=== PATIENT | male | born 1930 | race Caucasian/White ===

== ENCOUNTER 2018-01-22 12:27 | Inpatient (IN) | payer OTHER ==
--- NOTE | 2018-01-22 12:47 | PDOC ---
History of Present Illness - General Chief Complaint: Pain Stated Complaint: abd pain History Source: Patient - History of Present Illness Initial Comments: The patient is an 87M w/ a history of a-fib, COPD, and colon cancer (s/p colectomy and ostomy creation) who presents for evaluation for 1d of sharp, non- radiating, constant, RUQ abdominal pain. The pain is worse with coughing and palpation and better with recumbency. The patient also reports 4d of productive cough w/ yellow sputum. The patient denies having had pain like this before. He reports recently visiting his PCP and being told that he has hepatomegaly but has yet to be further evaluated for it. He denies associated fevers/chills, N/V, or change in his ostomy output. He denies blood in his stool or urine. His only reported history of intra-abdominal surgery is the colon resection, ostomy creation, and IHR. The patient states that he has a chronic cough w/ shortness of breath 2/2 his COPD. However, the sputum color has recently change to a yellow-kalpana color. He denies a worsening of his shortness of breath. He is on 2L NC at home at all times. 01/22/18 13:07 Past History - Past Medical History Allergies/Adverse Reactions: Allergies Allergy/AdvReac Type Severity Reaction Status Date / Time No Known Allergies Allergy Verified 01/22/18 12:47 Home Medications: Ambulatory Orders Albuterol Sulfate [Proair Hfa] 8.5 gm IH PRN 01/22/18 Allopurinol 300 mg PO DAILY 01/22/18 Clopidogrel Bisulfate [Plavix] 75 mg PO DAILY 01/22/18 Eszopiclone [Lunesta] 2 mg PO HS 01/22/18 Furosemide [Lasix] 40 mg PO DAILY 01/22/18 Gabapentin 300 mg PO BID 01/22/18 Metoprolol Tartrate [Lopressor -] 25 mg PO BID 01/22/18 COPD: Yes HTN: Yes Hypercholesterolemia: Yes - Surgical History Abdominal Surgery: Yes (colostomy.) - Immunization History Td Vaccination: Yes TDAP Vaccination: Yes Immunization Up to Date: Yes - Suicide/Smoking/Psychosocial Hx Smoking Status: No Smoking History: Former smoker Have you smoked in the past 12 months: No Number of Cigarettes Smoked Daily: 0 Hx Alcohol Use: No Drug/Substance Use Hx: No Substance Use Type: None Hx Substance Use Treatment: No Review of Systems - Review of Systems Able to Perform ROS?: Yes Comments:: GENERAL/CONSTITUTIONAL: No fever or chills. No weakness HEAD, EYES, EARS, NOSE AND THROAT: No change in vision. No ear pain or discharge. No sore throat CARDIOVASCULAR: No chest pain; +chronic BLE edema RESPIRATORY: +productive cough, baseline dyspnea GASTROINTESTINAL: No nausea, vomiting, no change in ostomy output GENITOURINARY: No dysuria, frequency, or change in urination MUSCULOSKELETAL: No joint or muscle swelling or pain. SKIN: No rash NEUROLOGIC: No headache, vertigo, loss of consciousness, or change in strength/ sensation ENDOCRINE: No increased thirst. +weight loss HEMATOLOGIC/LYMPHATIC: No anemia, easy bleeding, or history of blood clots; + plavix ALLERGIC/IMMUNOLOGIC: No hives or skin allergy 01/22/18 12:45 Is the patient limited Vietnamese proficient: No *Physical Exam - Physical Exam Comments: GENERAL: Awake, alert, and fully oriented, in no acute distress HEAD: No signs of trauma, normocephalic, atraumatic EYES: PERRL, EOMI, sclera anicteric, conjunctiva clear ENT: Hearing grossly normal, nares patent, oropharynx clear without exudates. Moist mucosa NECK: Normal ROM, supple LUNGS: B/l diffuse crackles; speaks in full sentences; no use of accessory muscles; saturating at 100% on 2L NC HEART: Regular rate, irregularly irregular rhythm, no murmurs appreciated, peripheral pulses normal and equal bilaterally ABDOMEN: Soft, nontender, normoactive bowel sounds. No guarding, no rebound EXTREMITIES : 3+ BLE edema to midshin; Normal range of motion. No clubbing or cyanosis NEUROLOGICAL: Cranial nerves II through XII grossly intact. Normal speech, no focal sensorimotor deficits SKIN: Warm, Dry; no diaphoresis 01/22/18 12:45 ED Treatment Course - LABORATORY CBC & Chemistry Diagram: 01/22/18 13:30 01/22/18 13:30 Medical Decision Making - Medical Decision Making The patient is an 87M who presents for evaluation for abdominal pain. Ddx: ED Course Sepsis w/u Trop I 1L NS ECG CXR 01/22/18 12:45 ECG significant for rate controlled afib. Patient took morning dose of Plavix POCUS significant for hetero-echoic liver suspicious for malignancy/mets; R hydronephrosis; evidence of b/l pleural effusion and RLL PNA; no evidence of gallbladder wall thickening or cholelithiasis Will obtain CT chest/abd/pelvis to further evaluate extent of malignancy v mets , pulm disease and intra-abdominal dz Will give Vanc 1g IV and Zosyn 3.375g IV once for broad spectrum coverage 01/22/18 14:45 Hgb 8.5, macrocytic anemia No leukocytosis Cr 1.2; GFR 50s, no reported history of kidney disease 01/22/18 14:52 Plan for admission for PNA/sepsis and evaluation of liver lesions seen on CT. CT scan results discussed with patient and family including findings that are suggestive of malignancy/mets. Discussed w/ family the need for further evaluation/testing. All questions answered to the best of my ability. Patient and family verbalized understanding. Patient with hx of COPD and increased shortness of breath. Reports requiring nebs QID. -Will give duoneb x1 Dispo: Admit 01/22/18 20:15 *DC/Admit/Observation/Transfer Diagnosis at time of Disposition: Liver lesion Pneumonia Qualifiers: Pneumonia type: due to unspecified organism Laterality: unspecified laterality Lung location: unspecified part of lung Qualified Code(s): J18.9 - Pneumonia, unspecified organism Sepsis Qualifiers: Sepsis type: sepsis due to unspecified organism Qualified Code(s): A41.9 - Sepsis, unspecified organism - Discharge Dispostion Condition at time of disposition: Guarded Decision to Admit order: Yes - Referrals - Patient Instructions - Post Discharge Activity
[2018-01-22] MEDS ORDERED: SODIUM CHLORIDE 0.9% 500 ML INFUS.BAG IV ONE (13:08)
[2018-01-22] MEDS ORDERED: ACETAMINOPHEN 325 MG TABLET (FP) PO ONE (13:08)
--- NOTE | 2018-01-22 13:13 | PDOC ---
Attending Attestation - Resident Resident Name: worsening - ED Attending Attestation I have performed the following: I have examined & evaluated the patient, The case was reviewed & discussed with the resident, I agree w/resident's findings & plan, Exceptions are as noted - HPI HPI: 01/22/18 13:12 87 yo male with h/o copd, htn here with c/o ruq pain. - Physicial Exam PE: 01/22/18 14:54 awake alert lungs with crackles at bilat bases. decreased breath sounds at bases. heart irreg tachycardia no mrg. abd distended. ostomy, intact. ruq palp large 3 x 5 in palp tender mass. ext wwp no edema. nuero alert oriented x 3. - Medical Decision Making 01/22/18 14:46 Chief 87-year-old male history of hypertension, hyperlipidemia, COPD, colon CA status post resection colectomy and colostomy here today with right-sided abdominal pain and cough. Patient was seen by PCP who palpated a mass. Denies fevers chills no nausea no vomiting no leg swelling no shortness of breath. On exam patient has a wet sounding cough which is nonproductive crackles at bilateral bases right side upper abdominal exam reveals a palpable mass which is tender to palpation. The left ostomy appears to be intact it is nontender extremities are warm and well-perfused Differential diagnosis includes metastatic lung CA, abdominal wall hernia, pneumonia, other renal or adrenal tumor, cholecystitis, cholangitis, cholelithiasis. Plan CT abdomen and pelvis, chest x-ray, labs including septic workup, EKG IV hydration fever control and pain control will give broad-spectrum antibiotics for presumed pneumonia focus ED ultrasound of the right upper quadrant Focus ED right upper quadrant ultrasound, indication pain and palpable mass The right upper quadrant was scanned into planes using the curvilinear probe. The gallbladder was noted to be without stones or wall thickening. Of note the liver had multiple areas of hyperechoic heterogeneous areas and showed enlargement. The right kidney showed that it was anatomically displaced medially and showed moderate hydronephrosis unable to identify the patient's CBD Bilateral kidneys were scanned indication hydronephrosis Right kidney was scanned into planes noted moderate hydronephrosis the left kidney measures 8.9 cm in length no hydronephrosis noted the bladder was nondistended and nonvisible the patient had recently urinated Impression: Right sided moderate hydronephrosis empty bladder liver heterogeneity and hyperechoic masses bladder gallbladder nondistended no stones unable to visualize CBD recommend CT follow-up 01/22/18 14:55 bilat lung ultrasound performed, with cardiac indication cough bilat lung bases with focal b lines, small pleural effusion and air bronchograms at bases, right more than left. anterior lung cardona a line predominant bilaterally. TTE performed, parasteral long veiw showed no rv enlargement, no pericardial effusion, good contractility. subxiphoid unvisualized. impressions: bilat air bronchograms and small effusions pneumonia vs. atelectasis, no pericardial effusion good contractility. <Kimberly Fairbanks - Last Filed: 01/22/18 14:55> - HPI HPI: 01/22/18 14:58 The patient is an 87-year-old male with past medical history significant for Afib, HTN, SBO, B/l renal cyst, R. base nodule on his lung, HLD, COPD on 2L O2 at home, hx of colon CA (13 years ago) s/p colostomy and ostomy by Dr. Lane, one chemo session, hx of CHF in the past presents to the emergency department with abdominal pain since 4:00 am today and a cough. The patient reports the pain is located to the RUQ, non-radiating, describes the quality as sharp. The patient also endorses a cough for 1 day. Denies nausea, vomiting, dysuria, chest pain, worsening shortness of breath, fever or chills. The patient reports following up with PCP 2 weeks prior, who informed the patient that his liver was palpable, no bulging mentioned. Denies any known urinary problems or concerns. The family reports the patient uses nebulizer x4 daily, inhaler and O2. Allergies: NKDA, no known allergies to abx. Social history: Former smoker, no past or present use of alcohol or recreational drug use. Surgical history: Colostomy and appendectomy PCP: Edison Aquino. Urologist: Dr. Membreno - Medical Decision Making 01/22/18 14:59 Documentation prepared by Donna Urias, acting as esthetician and manager medical spa for Kimberly Fairbanks MD. <Donna Urias - Last Filed: 01/22/18 14:59>
[2018-01-22] MEDS ORDERED: ACETAMINOPHEN 325 MG TABLET (FP) ONE (13:34)
[2018-01-22 13:37] LABS: VENOUS PC02 54.4 mmHg (38-52); VENOUS PH 7.45 (7.32-7.42); VENOUS PO2 31.5 mmHg (28-48)
[2018-01-22 13:47] LABS: BASO % 0.5 % (0-2.0); HEMATOCRIT 27.6 % (35.4-49); HEMOGLOBIN 8.5 GM/dL (11.7-16.9); LYMPH % 4.6 % (8-40); MCH 32.4 pg (25.7-33.7); MCHC 30.9 g/dl (32.0-35.9); MEAN CELL VOLUME 104.7 fl (80-96); MEAN PLT VOLUME 9.3 fl (7.5-11.1); MONO % 9.4 % (3.8-10.2); NEUT % 85.5 % (42.8-82.8); PLATELET COUNT 170 K/MM3 (134-434); RBC 2.63 M/mm3 (4.00-5.60); RDW 15.9 % (11.9-15.9); WHITE BLOOD COUNT 10.1 K/mm3 (4.0-10.0)
[2018-01-22 13:52] LABS: INR 1.22 (0.83-1.09); PROTHROMBIN TIME (PATIENT) 14.4 SEC (9.7-13.0)
[2018-01-22 13:54] LABS: ACTIVATED PTT 31.7 SECONDS (25.2-36.5)
[2018-01-22 14:14] LABS: ALBUMIN 2.4 g/dl (3.4-5.0); ALK PHOS 152 U/L (45-117); ANION GAP 7 MMOL/L (8-16); BILIRUBIN,TOTAL 0.8 mg/dL (0.2-1); BLOOD UREA NITROGEN 36 mg/dL (7-18); CALCIUM 9.2 mg/dL (8.5-10.1); CHLORIDE 97 mmol/L (98-107); CO2 37 mmol/L (21-32); CREATININE 1.2 mg/dL (0.55-1.3); GLUCOSE,RANDOM 94 mg/dL (74-106); POTASSIUM 3.4 mmol/L (3.5-5.1); SGOT/AST 49 U/L (15-37); SGPT/ALT 18 U/L (13-61); SODIUM 141 mmol/L (136-145); TOT PROT 6.2 g/dl (6.4-8.2)
[2018-01-22] MEDS ORDERED: VANCOMYCIN 1,000 MG in DEXTROSE 5%-WATER - 250 ML IVPB ONE (14:44)
[2018-01-22] MEDS ORDERED: PIPERACILLIN/TAZOB 3.375 GM 3.375 GM in DEXTROSE 5%-WATER - 50 ML IVPB ONE (14:44)
[2018-01-22] MEDS ORDERED: VANCOMYCIN 1 GRAM (PRE-DOCKED) 1,000 MG/250 ML BAG IVPB ONE (14:48)
[2018-01-22] MEDS ORDERED: PIPERACILLIN/TAZOB 3.375 GM 3.375 GM/50 ML BAG IVPB ONE (14:48)
[2018-01-22] MEDS ORDERED: ALBUTEROL SO4 2.5/IPRATROPIUM 0.5 INH SOL 3 ML VIAL.NEB. NEB ONE (19:21)
--- NOTE | 2018-01-22 20:17 | HP ---
Admitting History and Physical - Admission Chief Complaint: shortness of breath, right sided abd pain History of Present Illness: 87 yo male, recent increased shortness of breath, on lasix at home, presents with increased shortness of breath and right sided abd pain. Has been yusing albuterol nebulizer at home. Also has history of colon cancer, has left sided colostomy following resection. Notes years ago he had 1 round of chemo, but was not felt to require further treatment. Notes has been urinating a lot lately as well, but has been taking lasix. Notes some phlegm, which he has trouble expelling. No fevers noted at home. History Source: Patient, Medical Record Limitations to Obtaining History: No Limitations - Past Medical History Cardiovascular: Yes: CAD, CHF, HTN, Hyperlipdemia, Other (h/o SVT) Gastrointestinal: Yes: Diverticulosis Renal/: Yes: BPH, Other (epididymitis) Heme/Onc: Yes: Anemia, B12 Deficiency, Cancer (colon) Rheumatology: Yes: Gout Dermatology: Yes: Squamous Cell (cancer of scalp) - Past Surgical History Past Surgical History: Yes: Colostomy, Joint Replacement (rigth hip), Prostatectomy - Smoking History Smoking history: Former smoker Have you smoked in the past 12 months: No Aproximately how many cigarettes per day: 0 - Alcohol/Substance Use Hx Alcohol Use: No - Social History 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 Other Social History: , lives with girl friend Home Medications - Allergies Allergies/Adverse Reactions: Allergies Allergy/AdvReac Type Severity Reaction Status Date / Time No Known Allergies Allergy Verified 01/22/18 12:47 - Home Medications Home Medications: Ambulatory Orders Albuterol Sulfate [Proair Hfa] 8.5 gm IH PRN 01/22/18 Allopurinol 300 mg PO DAILY 01/22/18 Clopidogrel Bisulfate [Plavix] 75 mg PO DAILY 01/22/18 Eszopiclone [Lunesta] 2 mg PO HS 01/22/18 Furosemide [Lasix] 40 mg PO DAILY 01/22/18 Gabapentin 300 mg PO BID 01/22/18 Metoprolol Tartrate [Lopressor -] 25 mg PO BID 01/22/18 Family Disease History - Family Disease History Other Family History: fmaily history of DM, ASHD, HTN Review of Systems - Review of Systems Constitutional: denies: Chills, Fever, Loss of Appetite Eyes: reports: No Symptoms HENT: denies: Difficult Swallowing, Throat Pain Neck: denies: Stiffness, Tenderness Cardiovascular: denies: Chest Pain, Palpitations Respiratory: reports: Cough, SOB on Exertion Gastrointestinal: reports: Abdominal Pain. denies: Diarrhea Genitourinary: reports: Frequency (increased) Musculoskeletal: denies: Back Pain Physical Examination Vital Signs: Vital Signs Temperature 98.8 F 01/22/18 19:14 Pulse Rate 90 01/22/18 19:14 Respiratory Rate 18 01/22/18 19:14 Blood Pressure 104/59 L 01/22/18 19:14 O2 Sat by Pulse Oximetry (%) 96 01/22/18 19:14 Constitutional: Yes: No Distress Eyes: Yes: Conjunctiva Clear, EOM Intact, PERRL HENT: Yes: Atraumatic, Normocephalic Neck: Yes: Supple, Trachea Midline Cardiovascular: Yes: Regular Rate and Rhythm, S1, S2. No: Murmur Respiratory: Yes: Regular, Rhonchi (right base) Gastrointestinal: Yes: Normal Bowel Sounds, Distention, Hepatomegaly, Tenderness (rigth abdomen/ flank), Other (colostomy left abdomen) Edema: Yes Edema: LLE: 1+, RLE: 1+ Neurological: Yes: Alert, Oriented Labs: CBC, BMP 01/22/18 13:30 01/22/18 13:30 Imaging - Results Cat Scan: Report Reviewed (CT chest -left basilar infiltrate, mucoid plug CT abd /pelvis -multiple liver hypodensities, spleen lesion, mild right hydronephrosis , colostomy with parastmoal herniation (non-obstructive pattern)) Problem List - Problems (1) Pneumonia Assessment/Plan: -start zosyn (given dose vanco in ED), ID consulted Code(s): J18.9 - PNEUMONIA, UNSPECIFIED ORGANISM (2) COPD (chronic obstructive pulmonary disease) Assessment/Plan: -cont albuterol treatments, start Spiriva, pulm consult Code(s): J44.9 - CHRONIC OBSTRUCTIVE PULMONARY DISEASE, UNSPECIFIED (3) Colon cancer Assessment/Plan: -history of colon cancer s/p colectomy/ colostomy placement Code(s): C18.9 - MALIGNANT NEOPLASM OF COLON, UNSPECIFIED (4) Liver lesion Assessment/Plan: -appear to be metastatic disease -Oncology consult, GI consult -hold plavix, as may require biopsy Code(s): K76.9 - LIVER DISEASE, UNSPECIFIED (5) Atrial fibrillation Assessment/Plan: -s/p ablation procedure, currently rate controlled Code(s): I48.91 - UNSPECIFIED ATRIAL FIBRILLATION (6) CHF (congestive heart failure) Assessment/Plan: -on lasix -cont IV lasix here, cardio eval Code(s): I50.9 - HEART FAILURE, UNSPECIFIED (7) Anemia Assessment/Plan: -follow H/H Code(s): D64.9 - ANEMIA, UNSPECIFIED
[2018-01-22] MEDS ORDERED: ESZOPICLONE 2 MG PO SCH (22:00)
[2018-01-22 22:26] LABS: ALBUMIN 2.3 g/dl (3.4-5.0); ALK PHOS 148 U/L (45-117); ANION GAP -17 MMOL/L (8-16); BILIRUBIN,TOTAL 0.8 mg/dL (0.2-1); BLOOD UREA NITROGEN 34 mg/dL (7-18); CALCIUM 9.9 mg/dL (8.5-10.1); CHLORIDE 104 mmol/L (98-107); CO2 37 mmol/L (21-32); CREATININE 1.3 mg/dL (0.55-1.3); GLUCOSE,RANDOM 100 mg/dL (74-106); LIPASE 948 U/L (73-393); POTASSIUM 3.2 mmol/L (3.5-5.1); SGOT/AST 37 U/L (15-37); SGPT/ALT 17 U/L (13-61); SODIUM 125 mmol/L (136-145); TOT PROT 5.7 g/dl (6.4-8.2)
[2018-01-22] MEDS: ALBUTEROL SO4 0.083% IH SOL 2.5 MG/3 ML VIAL.NEB. NEB SCH (22:30)
[2018-01-22] MEDS: ZOLPIDEM TARTRATE 5 MG TABLET PO PRN (22:54)
[2018-01-22] MEDS: HEPARIN NA (PORCINE) 5,000 UNITS/ML 1ML VIAL SQ SCH (22:54)
[2018-01-22] MEDS: METOPROLOL TARTRATE 25 MG TABLET (FP) PO SCH (22:54)
[2018-01-22] MEDS: GABAPENTIN 300 MG CAPSULE (FP) PO SCH (22:54)
[2018-01-23] MEDS: ALBUTEROL SO4 0.083% IH SOL 2.5 MG/3 ML VIAL.NEB. NEB SCH ×6 (01:42→21:00)
[2018-01-23] MEDS ORDERED: PIPERACILLIN/TAZOB 3.375 GM 3.375 GM in DEXTROSE 5%-WATER - 50 ML IVPB ONE (02:00)
[2018-01-23] MEDS ORDERED: PIPERACILLIN/TAZOBACTAM 3.375 GM VIAL IVPB ONE (02:34)
[2018-01-23] MEDS ORDERED: DEXTROSE 5%-WATER - 50 ML IVPB ONE ×2 (02:34→10:56)
[2018-01-23 07:35] LABS: BASO % 0.5 % (0-2.0); EOS % 0.2 % (0-4.5); HEMATOCRIT 25.4 % (35.4-49); HEMOGLOBIN 7.7 GM/dL (11.7-16.9); LYMPH % 8.4 % (8-40); MCH 31.6 pg (25.7-33.7); MCHC 30.2 g/dl (32.0-35.9); MEAN CELL VOLUME 104.4 fl (80-96); MEAN PLT VOLUME 8.6 fl (7.5-11.1); MONO % 9.3 % (3.8-10.2); NEUT % 81.6 % (42.8-82.8); PLATELET COUNT 150 K/MM3 (134-434); RBC 2.43 M/mm3 (4.00-5.60); RDW 15.7 % (11.9-15.9); WHITE BLOOD COUNT 7.5 K/mm3 (4.0-10.0)
[2018-01-23 08:02] LABS: ALBUMIN 2.1 g/dl (3.4-5.0); ALK PHOS 141 U/L (45-117); ANION GAP 3 MMOL/L (8-16); BILIRUBIN,TOTAL 0.7 mg/dL (0.2-1); BLOOD UREA NITROGEN 31 mg/dL (7-18); CALCIUM 9.6 mg/dL (8.5-10.1); CHLORIDE 100 mmol/L (98-107); CO2 36 mmol/L (21-32); GLUCOSE,RANDOM 82 mg/dL (74-106); POTASSIUM 3.5 mmol/L (3.5-5.1); SGOT/AST 33 U/L (15-37); SGPT/ALT 17 U/L (13-61); SODIUM 139 mmol/L (136-145); TOT PROT 5.5 g/dl (6.4-8.2)
[2018-01-23 09:12] LABS: URINE APPEARANCE SLCLOUDY; URINE BILIRUBIN NEGATIVE (<2.0 mg/dL); URINE COLOR YELLOW; URINE GLUCOSE (UA) NEGATIVE (NEGATIVE); URINE KETONE NEGATIVE (NEGATIVE); URINE LEUK ESTERASE 3+ (NEGATIVE); URINE NITRITE NEGATIVE (NEGATIVE); URINE PROTEIN NEGATIVE (NEGATIVE); URINE UROBILINOGEN NEGATIVE mg/dL (0.2-1.0)
[2018-01-23 09:13] LABS: EPI CELLS RARE /HPF (FEW); URINE MUCUS RARE
[2018-01-23] MEDS: FUROSEMIDE 40 MG/4 ML INJECTABLE VIAL IVPUSH SCH (09:18)
[2018-01-23] MEDS: HEPARIN NA (PORCINE) 5,000 UNITS/ML 1ML VIAL SQ SCH ×2 (09:18→21:30)
[2018-01-23] MEDS: GABAPENTIN 300 MG CAPSULE (FP) PO SCH ×2 (09:18→21:30)
[2018-01-23] MEDS: ALLOPURINOL 300 MG TABLET (FP) PO SCH (09:18)
[2018-01-23] MEDS: METOPROLOL TARTRATE 25 MG TABLET (FP) PO SCH ×2 (09:18→21:30)
[2018-01-23] MEDS ORDERED: PIPERACILLIN/TAZOB 3.375 GM 3.375 GM in DEXTROSE 5%-WATER - 50 ML IVPB SCH (10:00)
--- NOTE | 2018-01-23 10:29 | CON.ID ---
Consult Consult Specialty:: infectious disease Referred by:: dr hussein Reason for Consultation:: pneumonia - History of Present Illness Chief Complaint: cough for one week History of Present Illness: 87 year old man with prior history of colon cancer s/p colostomy, has had anorexia for about one month now, one week of cough, nonproductive. no fevers was seen by his PMD and hepatomegaly noted, given cough he was advised ED evaluation lives at home with significant other uses cant to ambulate no nausea or vomiting no diarrhea or constipation is on lasix, no dysuria, +urinary frequency +weight loss no travel 2 pet birds no recent hospitalizations no recent antibiotics chronic leg edema left greater then right - History Source History Provided By: Patient, Medical Record - Past Medical History Cardio/Vascular: Yes: CAD, CHF, HTN, Hyperlipdemia, Other (h/o SVT) Gastrointestinal: Yes: Diverticulosis Renal/: Yes: BPH, Other (epididymitis) Rheumatology: Yes: Gout Dermatology: Yes: Squamous Cell (cancer of scalp) - Past Surgical History Past Surgical History: Yes: Colostomy, Joint Replacement (rigth hip), Prostatectomy - Alcohol/Substance Use Hx Alcohol Use: No - Smoking History Smoking history: Former smoker Have you smoked in the past 12 months: No Aproximately how many cigarettes per day: 0 - Social History Usual Living Arrangement: With Significant Other ADL: Independent 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[employer] Place of : [facility] History of Recent Travel: No Home Medications - Allergies Allergies/Adverse Reactions: Allergies Allergy/AdvReac Type Severity Reaction Status Date / Time No Known Allergies Allergy Verified 01/22/18 12:47 - Home Medications Home Medications: Ambulatory Orders Albuterol Sulfate [Proair Hfa] 8.5 gm IH PRN 01/22/18 Allopurinol 300 mg PO DAILY 01/22/18 Clopidogrel Bisulfate [Plavix] 75 mg PO DAILY 01/22/18 Eszopiclone [Lunesta] 2 mg PO HS 01/22/18 Furosemide [Lasix] 40 mg PO DAILY 01/22/18 Gabapentin 300 mg PO BID 01/22/18 Metoprolol Tartrate [Lopressor -] 25 mg PO BID 01/22/18 Family Disease History - Family Disease History Other Family History: fmaily history of DM, ASHD, HTN Review of Systems - Review of Systems Constitutional: reports: Unintentional Wgt. Loss. denies: Chills, Fever Eyes: reports: No Symptoms HENT: reports: No Symptoms Neck: reports: No Symptoms Cardiovascular: denies: Chest Pain Respiratory: reports: Cough Gastrointestinal: reports: No Symptoms. denies: Diarrhea, Nausea, Vomiting Genitourinary: reports: No Symptoms Musculoskeletal: reports: No Symptoms Physical Exam Vital Signs: Vital Signs Temperature 98.7 F 01/23/18 07:56 Pulse Rate 96 H 01/23/18 07:56 Respiratory Rate 20 01/23/18 08:02 Blood Pressure 107/62 01/23/18 07:56 O2 Sat by Pulse Oximetry (%) 100 01/23/18 08:02 Constitutional: Yes: Well Nourished, No Distress Eyes: Yes: Conjunctiva Clear HENT: Yes: Other (dentures upper and lower). No: Pharyngeal Erythema, Thrush Neck: Yes: WNL, Supple Cardiovascular: Yes: Regular Rate and Rhythm Respiratory: Yes: CTA Bilaterally, Diminished (both bases) Gastrointestinal: Yes: Normal Bowel Sounds, Soft, Tenderness (Ruq), Other ( colostomy LLQ) ...Rectal Exam: Yes: Deferred Edema: Yes Edema: LLE: 1+, RLE: 1+ Psychiatric: Yes: Alert, Oriented Labs: CBC, BMP 01/23/18 05:40 01/23/18 05:40 Imaging - Results Chest X-ray: Report Reviewed Cat Scan: Report Reviewed, Image Reviewed (left posterior basilar infiltrate, right posterior basilar opacity, multiple liver lesions, multiple non obstructing renal calculi with mild right hydronephrosis, +colostomy with peristomal hernia) Problem List - Problems (1) Pneumonia Code(s): J18.9 - PNEUMONIA, UNSPECIFIED ORGANISM (2) Liver lesion Code(s): K76.9 - LIVER DISEASE, UNSPECIFIED (3) Colon cancer Code(s): C18.9 - MALIGNANT NEOPLASM OF COLON, UNSPECIFIED (4) Anemia Code(s): D64.9 - ANEMIA, UNSPECIFIED Assessment/Plan f/u cultures add legionella urinary antigen can treat with rocephin, no history of recent antibiotics or hospitalizations to suggest resistant organisms probable liver mets- history of colon cancer oncology to see anemia-to follow
[2018-01-23 10:44] LABS: URINE APPEARANCE CLEAR; URINE BILIRUBIN NEGATIVE (<2.0 mg/dL); URINE COLOR YELLOW; URINE GLUCOSE (UA) NEGATIVE (NEGATIVE); URINE KETONE NEGATIVE (NEGATIVE); URINE LEUK ESTERASE 1+ (NEGATIVE); URINE NITRITE NEGATIVE (NEGATIVE); URINE PROTEIN NEGATIVE (NEGATIVE); URINE UROBILINOGEN NEGATIVE mg/dL (0.2-1.0)
[2018-01-23] MEDS ORDERED: CEFTRIAXONE 1 GM in DEXTROSE 5%-WATER - 100 ML IVPB SCH (10:45)
[2018-01-23 10:46] LABS: EPI CELLS RARE /HPF (FEW); URINE BACTERIA RARE /hpf (NONE SEEN); URINE HYALINE CAST 1 /lpf
[2018-01-23] MEDS ORDERED: cefTRIAXone SODIUM 1 GM VIAL ONE (10:56)
--- NOTE | 2018-01-23 12:28 | PN ---
Progress Note, Physician History of Present Illness: Patient notes a little less pain today in abdomen. Still coughing, but seems improved today. - Current Medication List Current Medications: Active Medications Acetaminophen (Tylenol -) 650 mg PO Q4H PRN PRN Reason: PAIN OR FEVER Albuterol Sulfate (Ventolin 0.083% Nebulizer Soln -) 1 amp NEB Q4HPO [facility] Last Admin: 01/23/18 05:45 Dose: 1 amp Allopurinol (Zyloprim -) 300 mg PO DAILY [facility] Last Admin: 01/23/18 09:18 Dose: 300 mg Furosemide (Lasix Injection -) 40 mg IVPUSH DAILY [facility] Last Admin: 01/23/18 09:18 Dose: 40 mg Gabapentin (Neurontin -) 300 mg PO BID [facility] Last Admin: 01/23/18 09:18 Dose: 300 mg Heparin Sodium (Porcine) (Heparin -) 5,000 unit SQ BID [facility] Last Admin: 01/23/18 09:18 Dose: 5,000 unit Ceftriaxone Sodium 1 gm/ (Dextrose) 50 mls @ 200 mls/hr IVPB DAILY [facility]; Protocol Metoprolol Tartrate (Lopressor -) 25 mg PO BID [facility] Last Admin: 01/23/18 09:18 Dose: 25 mg Tiotropium [place] (Spiriva Respimat) 2 puff IH DAILY [facility] Zolpidem Tartrate (Ambien -) 5 mg PO HS PRN PRN Reason: INSOMNIA Last Admin: 01/22/18 22:54 Dose: 5 mg - Objective Vital Signs: Vital Signs Temperature 98.7 F 01/23/18 07:56 Pulse Rate 96 H 01/23/18 07:56 Respiratory Rate 20 01/23/18 08:02 Blood Pressure 107/62 01/23/18 07:56 O2 Sat by Pulse Oximetry (%) 100 01/23/18 08:02 Constitutional: Yes: No Distress, Calm Cardiovascular: Yes: Regular Rate and Rhythm, S1, S2. No: Murmur Respiratory: Yes: Regular, Rhonchi (base on right) Gastrointestinal: Yes: Normal Bowel Sounds, Soft, Distention, Tenderness (right side), Other (colostomy left abdomen) Edema: Yes Edema: LLE: 1+, RLE: 1+ Neurological: Yes: Alert, Oriented Labs: CBC, BMP 01/23/18 05:40 01/23/18 05:40 INR, PTT INR 1.22 (0.83-1.09) H 01/22/18 13:30 Problem List - Problems (1) Pneumonia Code(s): J18.9 - PNEUMONIA, UNSPECIFIED ORGANISM (2) COPD (chronic obstructive pulmonary disease) Code(s): J44.9 - CHRONIC OBSTRUCTIVE PULMONARY DISEASE, UNSPECIFIED (3) Colon cancer Code(s): C18.9 - MALIGNANT NEOPLASM OF COLON, UNSPECIFIED (4) Liver lesion Code(s): K76.9 - LIVER DISEASE, UNSPECIFIED (5) Atrial fibrillation Code(s): I48.91 - UNSPECIFIED ATRIAL FIBRILLATION (6) CHF (congestive heart failure) Code(s): I50.9 - HEART FAILURE, UNSPECIFIED (7) Anemia Code(s): D64.9 - ANEMIA, UNSPECIFIED Assessment/Plan Current Active Problems Anemia (Acute) Atrial fibrillation (Acute) CHF (congestive heart failure) (Acute) COPD (chronic obstructive pulmonary disease) (Acute) Colon cancer (Acute) Liver lesion (Acute) Pneumonia (Acute) -cont abx, breathing treatments for PNA/ COPD -IV lasix for fluid overload (soft tissue edema seem in abdomen as well) -further eval for hepatic lesions
--- NOTE | 2018-01-23 13:08 | CON.GI ---
Consult Consult Specialty:: Gastroenterology Referred by:: Dr. Gómez Bell Reason for Consultation:: RLQ abdominal pain - History of Present Illness Chief Complaint: Cough that is aggravating right lower lateral pain History of Present Illness: 87M is admitted with h/o a cough for the past month that has led to a right lower lateral pain at the site of his right flank incision. The pain is also aggravated by sitting up and relieved when he lies on his back. He has lost over 10 lbs due to a diminished appetite over the past [address] Scan reveals that his liver is riddled with metastases and there is a protrusion by the liver through this area. There are no loops of compromised bowel sen in this area. I reviewed the CT with Dr. España. He had a rectal carcinoma excised by abdominoperineal resection and colostomy formation in 08/22. He recall having received 1 dose of chemotherapy. He last had a colonoscopy on 10/19/09 which led to the removal of a transverse colon polyp and revealed moderate diverticulosis universally. He has a colostomy hernia. EGD on 10/26/09 revealed a nonerosive acid reflux, a presbyesophagus and a J shaped stomach. He denies any bleeding. His pain is not affected by eating. He lost his daughter to cancer 3 year ago but cannot recall the primary. - History Source History Provided By: Patient Limitations to Obtaining History: No Limitations - Past Medical History Cardio/Vascular: Yes: CAD (with coronary stenting 08/26), CHF, HTN, Hyperlipdemia , Other (h/o SVT) Pulmonary: Yes: COPD Gastrointestinal: Yes: Cancer (rectal cancer with abdominoperineal resection ), Diverticulosis Renal/: Yes: BPH, Renal Calculi, Other (epididymitis) Heme/Onc: Yes: Cancer (Rectal canbcer excised 08/22) Rheumatology: Yes: Gout Dermatology: Yes: Squamous Cell (cancer of scalp) - Past Surgical History Past Surgical History: Yes: Colonoscopy, Colostomy, Hernia Repair (RIH and LIH) , Joint Replacement (right THR), Prostatectomy, Upper Endoscopy Additional Surgical History: open right ureteral stone extraction. 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[employer] Place of : [facility] History of Recent Travel: No Home Medications - Allergies Allergies/Adverse Reactions: Allergies Allergy/AdvReac Type Severity Reaction Status Date / Time No Known Allergies Allergy Verified 01/22/18 12:47 - Home Medications Home Medications: Ambulatory Orders Albuterol Sulfate [Proair Hfa] 8.5 gm IH PRN 01/22/18 Allopurinol 300 mg PO DAILY 01/22/18 Clopidogrel Bisulfate [Plavix] 75 mg PO DAILY 01/22/18 Eszopiclone [Lunesta] 2 mg PO HS 01/22/18 Furosemide [Lasix] 40 mg PO DAILY 01/22/18 Gabapentin 300 mg PO BID 01/22/18 Metoprolol Tartrate [Lopressor -] 25 mg PO BID 01/22/18 Family Disease History - Family Disease History Family Disease History: CA: Father ( of kidney cancer), Daughter ( of cancer ? primary), Other: Mother (lived to ) Other Family History: fmaily history of DM, ASHD, HTN Review of Systems - Review of Systems Constitutional: reports: Loss of Appetite, Unintentional Wgt. Loss, Weakness Eyes: reports: No Symptoms HENT: reports: No Symptoms Neck: reports: No Symptoms Cardiovascular: reports: No Symptoms Respiratory: reports: Cough, Exercise Intolerance Gastrointestinal: reports: Abdominal Pain Physical Exam-GI Vital Signs: Vital Signs Temperature 98.7 F 01/23/18 07:56 Pulse Rate 96 H 01/23/18 07:56 Respiratory Rate 20 01/23/18 08:02 Blood Pressure 107/62 01/23/18 07:56 O2 Sat by Pulse Oximetry (%) 100 01/23/18 08:02 CBC,CMP WBC 7.5 K/mm3 (4.0-10.0) 01/23/18 05:40 RBC 2.43 M/mm3 (4.00-5.60) L 01/23/18 05:40 Hgb 7.7 GM/dL (11.7-16.9) L 01/23/18 05:40 Hct 25.4 % (35.4-49) L 01/23/18 05:40 MCV 104.4 fl (80-96) H 01/23/18 05:40 MCH 31.6 pg (25.7-33.7) 01/23/18 05:40 MCHC 30.2 g/dl (32.0-35.9) L 01/23/18 05:40 RDW 15.7 % (11.9-15.9) 01/23/18 05:40 Plt Count 150 K/MM3 (134-434) 01/23/18 05:40 MPV 8.6 fl (7.5-11.1) 01/23/18 05:40 Absolute Neuts (auto) 6.1 K/mm3 (1.5-8.0) 01/23/18 05:40 Neutrophils % 81.6 % (42.8-82.8) 01/23/18 05:40 Lymphocytes % 8.4 % (8-40) D 01/23/18 05:40 Monocytes % 9.3 % (3.8-10.2) 01/23/18 05:40 Eosinophils % 0.2 % (0-4.5) D 01/23/18 05:40 Basophils % 0.5 % (0-2.0) 01/23/18 05:40 Nucleated RBC % 0 % (0-0) 01/23/18 05:40 Sodium 139 mmol/L (136-145) 01/23/18 05:40 Potassium 3.5 mmol/L (3.5-5.1) 01/23/18 05:40 Chloride 100 mmol/L (98-107) 01/23/18 05:40 Carbon Dioxide 36 mmol/L (21-32) H 01/23/18 05:40 Anion Gap 3 MMOL/L (8-16) L 01/23/18 05:40 BUN 31 mg/dL (7-18) H 01/23/18 05:40 Creatinine 1.0 mg/dL (0.55-1.3) 01/23/18 05:40 Creat Clearance w eGFR > 60 (>60) 01/23/18 05:40 Random Glucose 82 mg/dL (74-106) 01/23/18 05:40 Lactic Acid 2.0 mmol/L (0.4-2.0) 01/22/18 20:30 Calcium 9.6 mg/dL (8.5-10.1) 01/23/18 05:40 Total Bilirubin 0.7 mg/dL (0.2-1) 01/23/18 05:40 AST 33 U/L (15-37) 01/23/18 05:40 ALT 17 U/L (13-61) 01/23/18 05:40 Alkaline Phosphatase 141 U/L (45-117) H 01/23/18 05:40 Creatine Kinase 140 IU/L (26-308) 01/22/18 13:30 Troponin I < 0.02 ng/ml (0.00-0.05) 01/22/18 13:47 Total Protein 5.5 g/dl (6.4-8.2) L 01/23/18 05:40 Albumin 2.1 g/dl (3.4-5.0) L 01/23/18 05:40 Lipase 948 U/L (73-393) H 01/22/18 13:47 Current Medications Generic Name Dose Route Start Last Admin Trade Name Freq PRN Reason Stop Dose Admin Acetaminophen 650 mg 01/22/18 19:57 Tylenol - PO Q4H PRN PAIN OR FEVER Albuterol Sulfate 1 amp 01/22/18 22:00 01/23/18 05:45 Ventolin 0.083% Nebulizer Soln - NEB 1 amp Q4HPO KELLEE Administration Allopurinol 300 mg 01/23/18 10:00 01/23/18 09:18 Zyloprim - PO 300 mg DAILY KELLEE Administration Furosemide 40 mg 01/23/18 10:00 01/23/18 09:18 Lasix Injection - IVPUSH 40 mg DAILY KELLEE Administration Gabapentin 300 mg 01/22/18 22:00 01/23/18 09:18 Neurontin - PO 300 mg BID KELLEE Administration Heparin Sodium (Porcine) 5,000 unit 01/22/18 22:00 01/23/18 09:18 Heparin - SQ 5,000 unit BID KELLEE Administration Ceftriaxone Sodium 1 gm/ 50 mls @ 200 mls/hr 01/23/18 10:47 Dextrose IVPB DAILY [facility] Protocol Metoprolol Tartrate 25 mg 01/22/18 22:00 01/23/18 09:18 Lopressor - PO 25 mg BID KELLEE Administration Tiotropium Howell 2 puff 01/23/18 10:00 Spiriva Respimat IH DAILY KELLEE Zolpidem Tartrate 5 mg 01/22/18 21:37 01/22/18 22:54 Ambien - PO 5 mg HS PRN Administration INSOMNIA Constitutional: Yes: Calm Eyes: Yes: Conjunctiva Clear HENT: Yes: Normocephalic Neck: Yes: Trachea Midline Cardiovascular: Yes: Pulse Irregular Respiratory: Yes: CTA Bilaterally Gastrointestinal Inspection: Yes: Scars (right flank incision with tender firm mass bulging healed long midline vertical incision), Other (LLQ functional colostomy with nontender hernia) ...Auscultate: Yes: Normoactive Bowel Sounds ...Palpate: Yes: Soft, Tenderness ...Rectal Exam: Yes: Guaiac Negative (greenish/brown guaiac negative colostomy stool) Edema: No Neurological: Yes: Alert, Oriented Labs: CBC, BMP 01/23/18 05:40 01/23/18 05:40 INR, PTT INR 1.22 (0.83-1.09) H 01/22/18 13:30 Imaging - Results Cat Scan: Image Reviewed (liver metastases with irregularl liver contour resulting in liver bulging into the right lateral flank incision hernia) Problem List - Problems (1) Abdominal pain, right lateral Assessment/Plan: I believe that Arcadio pain is due to distension of the liver capsule at the site of his right flank incisional hernia. Given the irregular contour of the liver at this suite and the tenderness I suspect that there is an underlying metastasis eroding into the capsule. I suspect that he may have a 2nd colon cancer as the cause of the metastases but cannot exclude other primary sites. I have offered diagnostic EGD ad colonoscopy and/or a liver biopsy. Arcadio has replied that he would not accept any therapy or intervention and there does not want such diagnostics. He simply wants comfort care. I have discussed this with Dr Bell. A DNR should be considered. Code(s): R10.9 - UNSPECIFIED ABDOMINAL PAIN (2) Liver metastases Code(s): C78.7 - SECONDARY MALIG NEOPLASM OF LIVER AND INTRAHEPATIC BILE DUCT (3) Abdominal hernia Code(s): K46.9 - UNSPECIFIED ABDOMINAL HERNIA WITHOUT OBSTRUCTION OR GANGRENE (4) Colostomy hernia Code(s): K94.09 - OTHER COMPLICATIONS OF COLOSTOMY (5) Weight loss Code(s): R63.4 - ABNORMAL WEIGHT LOSS (6) Anorexia Code(s): R63.0 - ANOREXIA (7) Colon polyp Code(s): K63.5 - POLYP OF COLON (8) Diverticulosis Code(s): K57.90 - DVRTCLOS OF INTEST, PART UNSP, W/O PERF OR ABSCESS W/O BLEED (9) Nephrolithiasis Code(s): N20.0 - CALCULUS OF KIDNEY Assessment/Plan Suspect liver metastases causing the pain and weight loss, likely due to a 2nd metachronous colon cancer Arcadio wants no intervention and accept his fate Consider DNR and pain management consult
[2018-01-23] MEDS: TIOTROPIUM BROMIDE 2.5 MCG (SPIRIVA) RESPIMAT INHALER IH SCH (13:34)
--- NOTE | 2018-01-23 14:07 | CON.PULM ---
Consult Consult Specialty:: PULMONARY Referred by:: LISA Reason for Consultation:: SOB - History of Present Illness Chief Complaint: SOB History of Present Illness: The patient is an 87M w/ a history of a-fib, COPD, and colon cancer (s/p colectomy and ostomy creation) who presents for evaluation for 1d of sharp, non- radiating, constant, RUQ abdominal pain. The pain is worse with coughing and palpation and better with recumbency. The patient also reports 4d of productive cough w/ yellow sputum. The patient denies having had pain like this before. He reports recently visiting his PCP and being told that he has hepatomegaly but has yet to be further evaluated for it. He denies associated fevers/chills, N/V, or change in his ostomy output. He denies blood in his stool or urine. His only reported history of intra-abdominal surgery is the colon resection, ostomy creation, and IHR. The patient states that he has a chronic cough w/ shortness of breath 2/2 his COPD. However, the sputum color has recently change to a yellow-kalpana color. He denies a worsening of his shortness of breath. He is on 2L NC at home at all times. 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 Place of : [facility] History of Recent Travel: No Home Medications - Allergies Allergies/Adverse Reactions: Allergies Allergy/AdvReac Type Severity Reaction Status Date / Time No Known Allergies Allergy Verified 01/22/18 12:47 - Home Medications Home Medications: Ambulatory Orders Albuterol Sulfate [Proair Hfa] 8.5 gm IH PRN 01/22/18 Allopurinol 300 mg PO DAILY 01/22/18 Clopidogrel Bisulfate [Plavix] 75 mg PO DAILY 01/22/18 Eszopiclone [Lunesta] 2 mg PO HS 01/22/18 Furosemide [Lasix] 40 mg PO DAILY 01/22/18 Gabapentin 300 mg PO BID 01/22/18 Metoprolol Tartrate [Lopressor -] 25 mg PO BID 01/22/18 Family Disease History - Family Disease History Family Disease History: CA: Father ( of kidney cancer), Daughter ( of cancer ? primary), Other: Mother (lived to ) Other Family History: fmaily history of DM, ASHD, HTN Review of Systems - Review of Systems Constitutional: reports: Loss of Appetite. denies: Fever Eyes: denies: Blurred Vision HENT: denies: Difficult Swallowing Neck: denies: Decreased ROM Cardiovascular: denies: Chest Pain Respiratory: reports: Cough, SOB on Exertion. denies: Hemoptysis, Wheezing Gastrointestinal: denies: Abdominal Pain Genitourinary: denies: Burning Physical Exam Vital Sings: Vital Signs Temperature 98.7 F 01/23/18 07:56 Pulse Rate 96 H 01/23/18 07:56 Respiratory Rate 20 01/23/18 08:02 Blood Pressure 107/62 01/23/18 07:56 O2 Sat by Pulse Oximetry (%) 100 01/23/18 08:02 Constitutional: Yes: Calm Eyes: Yes: EOM Intact HENT: Yes: Normocephalic Neck: Yes: Trachea Midline Cardiovascular: Yes: Regular Rate and Rhythm Respiratory: Yes: Diminished ...Clubbing: No Edema: No Labs: CBC, BMP 01/23/18 05:40 01/23/18 05:40 Imaging - Results Chest X-ray: Report Reviewed, Image Reviewed Cat Scan: Report Reviewed, Image Reviewed Problem List - Problems (1) CHF (congestive heart failure) Code(s): I50.9 - HEART FAILURE, UNSPECIFIED (2) COPD (chronic obstructive pulmonary disease) Code(s): J44.9 - CHRONIC OBSTRUCTIVE PULMONARY DISEASE, UNSPECIFIED (3) Colon cancer Code(s): C18.9 - MALIGNANT NEOPLASM OF COLON, UNSPECIFIED (4) Colostomy hernia Code(s): K94.09 - OTHER COMPLICATIONS OF COLOSTOMY (5) Liver metastases Code(s): C78.7 - SECONDARY MALIG NEOPLASM OF LIVER AND INTRAHEPATIC BILE DUCT (6) Weight loss Code(s): R63.4 - ABNORMAL WEIGHT LOSS Assessment/Plan DISCUSSED WITH PATIENT REGARDING THE CAT SCAN FINDINGS AND THE POSSIBILITY OF METASTATIC DISEASE FROM HIS ORIGINAL COLON CA HE IS NOT INTERESTED IN PURSUING EITHER WORKUP OR TREATMENT HE WAS ADMITTED WITH SOB/COUGH AND SPUTUM PRODUCTION AND A LEFT BASE INFILTRATE ON CT CHEST WOULD OBTAIN SPUTUM FOR GRAM STAIN/CULTURE BRONCHODILATORS CONTINUE O2 NASAL (PATIENT HAS HOME O2) EMPIRIC ANTIBIOTICS PER PRIMARY TEAM CRUZ COLEMAN md
--- NOTE | 2018-01-23 14:22 | CON.GU ---
Consult - History of Present Illness History of Present Illness: 87 yo male with colon CA, admitted with abdominal pain. CT shows bilataral small nonobstructing stones with minimal to mild rt hydronephrosis, no ureteral pathology, creatinine is normal. 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 Travel: No Home Medications - Allergies Allergies/Adverse Reactions: Allergies Allergy/AdvReac Type Severity Reaction Status Date / Time No Known Allergies Allergy Verified 01/22/18 12:47 - Home Medications Home Medications: Ambulatory Orders Albuterol Sulfate [Proair Hfa] 8.5 gm IH PRN 01/22/18 Allopurinol 300 mg PO DAILY 01/22/18 Clopidogrel Bisulfate [Plavix] 75 mg PO DAILY 01/22/18 Eszopiclone [Lunesta] 2 mg PO HS 01/22/18 Furosemide [Lasix] 40 mg PO DAILY 01/22/18 Gabapentin 300 mg PO BID 01/22/18 Metoprolol Tartrate [Lopressor -] 25 mg PO BID 01/22/18 Family Disease History - Family Disease History Family Disease History: CA: Father ( of kidney cancer), Daughter ( of cancer ? primary), Other: Mother (lived to ) Other Family History: fmaily history of DM, ASHD, HTN Physical Exam- Vital Signs: Vital Signs Temperature 98.7 F 01/23/18 07:56 Pulse Rate 96 H 01/23/18 07:56 Respiratory Rate 20 01/23/18 08:02 Blood Pressure 107/62 01/23/18 07:56 O2 Sat by Pulse Oximetry (%) 100 01/23/18 08:02 Labs: CBC, BMP 01/23/18 05:40 01/23/18 05:40 Imaging - Results Cat Scan: Report Reviewed Problem List - Problems (1) Nephrolithiasis Assessment/Plan: no evidence of obstructive uropathy fron nephrolithiasis, etiology of mild rt hydro unclear but would observe in light of the lack of flank pain and normal creatinine Code(s): N20.0 - CALCULUS OF KIDNEY
--- NOTE | 2018-01-23 16:49 | CONSULT ---
Consult - text type - Consultation Consultation Note: ONCOLOGY CONSULT NOTE : Chief Complaint: shortness of breath, right sided abd pain History of Present Illness: 87 YR old male here with suspected pneumonia. He is being treated with lasix and antibiotics. During this time a CT A/P shows hepatic lesions. Of note he had a colectomy and has a colostomy for colorectal cancer 10 yrs ago. He follows with his PCP and until this admission hasnt had any issues. History Source: Patient, Medical Record Limitations to Obtaining History: No Limitations - Past Medical History Cardiovascular: Yes: CAD, CHF, HTN, Hyperlipdemia, Other (h/o SVT) Gastrointestinal: Yes: Diverticulosis Renal/: Yes: BPH, Other (epididymitis) Heme/Onc: Yes: Anemia, B12 Deficiency, Cancer (colon) Rheumatology: Yes: Gout Dermatology: Yes: Squamous Cell (cancer of scalp) - Past Surgical History Past Surgical History: Yes: Colostomy, Joint Replacement (rigth hip), Prostatectomy - Smoking History Smoking history: Former smoker Have you smoked in the past 12 months: No Aproximately how many cigarettes per day: 0 - Alcohol/Substance Use Hx Alcohol Use: No - Social History 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 Other Social History: , lives with girl friend Home Medications - Allergies Allergies/Adverse Reactions: Allergies Allergy/AdvReac Type Severity Reaction Status Date / Time No Known Allergies Allergy Verified 01/22/18 12:47 - Home Medications Home Medications: Ambulatory Orders Albuterol Sulfate [Proair Hfa] 8.5 gm IH PRN 01/22/18 Allopurinol 300 mg PO DAILY 01/22/18 Clopidogrel Bisulfate [Plavix] 75 mg PO DAILY 01/22/18 Eszopiclone [Lunesta] 2 mg PO HS 01/22/18 Furosemide [Lasix] 40 mg PO DAILY 01/22/18 Gabapentin 300 mg PO BID 01/22/18 Metoprolol Tartrate [Lopressor -] 25 mg PO BID 01/22/18 Family Disease History - Family Disease History Other Family History: fmaily history of DM, ASHD, HTN Review of Systems - Review of Systems Constitutional: denies: Chills, Fever, Loss of Appetite Eyes: reports: No Symptoms HENT: denies: Difficult Swallowing, Throat Pain Neck: denies: Stiffness, Tenderness Cardiovascular: denies: Chest Pain, Palpitations Respiratory: reports: Cough, SOB on Exertion Gastrointestinal: reports: Abdominal Pain. denies: Diarrhea Genitourinary: reports: Frequency (increased) Musculoskeletal: denies: Back Pain Physical Examination Vital Signs: Vital Signs Period Temp Pulse Resp BP Sys/Lepe Pulse Ox Last 24 Hr 98.1 F-99.0 F 72-100 18-24 102-157/59-78 96-100 Constitutional: Yes: No Distress Eyes: Yes: Conjunctiva Clear, EOM Intact, PERRL HENT: Yes: Atraumatic, Normocephalic Neck: Yes: Supple, Trachea Midline Cardiovascular: Yes: Regular Rate and Rhythm, S1, S2. No: Murmur Respiratory: Yes: Regular, Rhonchi (right base) Gastrointestinal: Yes: Normal Bowel Sounds, Distention, Hepatomegaly, Tenderness (rigth abdomen/ flank), Other (colostomy left abdomen) Edema: Yes Edema: LLE: 1+, RLE: 1+ Neurological: Yes: Alert, Oriented Labs: CBC, BMP 01/23/18 05:40 01/23/18 05:40 Imaging - Results Cat Scan: Report Reviewed (CT chest -left basilar infiltrate, mucoid plug CT abd /pelvis -multiple liver hypodensities, spleen lesion, mild right hydronephrosis , colostomy with parastmoal herniation (non-obstructive pattern)) ASSESSMENT AND PLAN : I had a long conversation with Mr. Ernandez. I explainned that he has liver lesions on his CT and that a biopsy and if proven liver mets from CRC would neccesitate chemotherapy or ? immunotherapy (unlikely). Mr. Ernandez was not enthusiastic about this idea. He explained his reasoning - he has lived a good life for 88 years. He is willing to accept that the outcome of life is and he wants to have a comfortable life during the rest of his days rather than undergo biopsies and if needed chemotherapy. He has discussed this with his PCP (Dr. Montgomery) whom he has known for [address] Montgomerys father and he says that Dr. Montgomery agrees with his decision. If he is symptomatic Mr. Ernandez wants to be treated for his symptoms. Hence I also agree that further workup should be deferred for his liver lesions and Mr. Ernandez be treated for his pneumonia. I agree with Dr. Chu's note as well. Palliative care should be consulted to define goals of care and a DNR/ DNI be considered. Problem List - Problems (1) Pneumonia Assessment/Plan: Code(s): J18.9 - PNEUMONIA, UNSPECIFIED ORGANISM (2) COPD (chronic obstructive pulmonary disease) Assessment/Plan: Code(s): J44.9 - CHRONIC OBSTRUCTIVE PULMONARY DISEASE, UNSPECIFIED (3) Colon cancer Assessment/Plan: Code(s): C18.9 - MALIGNANT NEOPLASM OF COLON, UNSPECIFIED (4) Liver lesion Assessment/Plan: Code(s): K76.9 - LIVER DISEASE, UNSPECIFIED (5) Atrial fibrillation Assessment/Plan: Code(s): I48.91 - UNSPECIFIED ATRIAL FIBRILLATION (6) CHF (congestive heart failure) Assessment/Plan: Code(s): I50.9 - HEART FAILURE, UNSPECIFIED (7) Anemia Assessment/Plan: Code(s): D64.9 - ANEMIA, UNSPECIFIED
--- NOTE | 2018-01-23 17:16 | EKG ---
Test Reason : Blood Pressure : / mmHG Vent. Rate : 099 BPM Atrial Rate : 089 BPM P-R Int : 000 ms QRS Dur : 122 ms QT Int : 350 ms P-R-T Axes : 000 060 007 degrees QTc Int : 449 ms ATRIAL FIBRILLATION RIGHT BUNDLE BRANCH BLOCK ABNORMAL ECG WHEN COMPARED WITH ECG OF 28-APR-2012 01:31, ATRIAL FIBRILLATION HAS REPLACED SINUS RHYTHM RIGHT BUNDLE BRANCH BLOCK IS NOW PRESENT CLINICAL CORRELATION IS RECOMMENDED Confirmed by MIKE BOWSER, BARRON ([id number]) on 01/23/2018 5:15:44 PM Referred By: Confirmed By:BARRON MCKEON MD
[2018-01-24] MEDS: ALBUTEROL SO4 0.083% IH SOL 2.5 MG/3 ML VIAL.NEB. NEB SCH ×6 (02:00→21:10)
[2018-01-24 07:44] LABS: BASO % 0.9 % (0-2.0); EOS % 0.6 % (0-4.5); HEMATOCRIT 23.9 % (35.4-49); HEMOGLOBIN 7.3 GM/dL (11.7-16.9); LYMPH % 10.6 % (8-40); MCH 31.9 pg (25.7-33.7); MCHC 30.6 g/dl (32.0-35.9); MEAN CELL VOLUME 104.3 fl (80-96); MEAN PLT VOLUME 9.4 fl (7.5-11.1); MONO % 7.6 % (3.8-10.2); NEUT % 80.3 % (42.8-82.8); PLATELET COUNT 161 K/MM3 (134-434); RBC 2.29 M/mm3 (4.00-5.60); RDW 15.7 % (11.9-15.9); WHITE BLOOD COUNT 5.5 K/mm3 (4.0-10.0)
[2018-01-24 08:14] LABS: ALBUMIN 1.9 g/dl (3.4-5.0); ALK PHOS 134 U/L (45-117); AMYLASE 56 U/L (25-115); ANION GAP 7 MMOL/L (8-16); BILIRUBIN,TOTAL 0.4 mg/dL (0.2-1); BLOOD UREA NITROGEN 27 mg/dL (7-18); CALCIUM 9.5 mg/dL (8.5-10.1); CHLORIDE 98 mmol/L (98-107); CO2 37 mmol/L (21-32); CREATININE 0.8 mg/dL (0.55-1.3); GLUCOSE,RANDOM 94 mg/dL (74-106); LIPASE 160 U/L (73-393); POTASSIUM 3.4 mmol/L (3.5-5.1); SGOT/AST 27 U/L (15-37); SGPT/ALT 15 U/L (13-61); SODIUM 141 mmol/L (136-145); TOT PROT 5.2 g/dl (6.4-8.2)
[2018-01-24] MEDS ORDERED: cefTRIAXone SODIUM 1 GM VIAL ONE (08:46)
[2018-01-24] MEDS ORDERED: DEXTROSE 5%-WATER - 50 ML IVPB ONE (08:46)
[2018-01-24] MEDS: FUROSEMIDE 40 MG/4 ML INJECTABLE VIAL IVPUSH SCH ×2 (09:12→17:07)
[2018-01-24] MEDS: HEPARIN NA (PORCINE) 5,000 UNITS/ML 1ML VIAL SQ SCH ×2 (09:13→21:41)
[2018-01-24] MEDS: CEFTRIAXONE 1 GM in DEXTROSE 5%-WATER - 50 ML IVPB SCH (09:13)
[2018-01-24] MEDS: GABAPENTIN 300 MG CAPSULE (FP) PO SCH ×2 (09:14→21:42)
[2018-01-24] MEDS: TIOTROPIUM BROMIDE 2.5 MCG (SPIRIVA) RESPIMAT INHALER IH SCH (09:14)
[2018-01-24] MEDS: METOPROLOL TARTRATE 25 MG TABLET (FP) PO SCH ×2 (09:14→21:42)
[2018-01-24] MEDS: ALLOPURINOL 300 MG TABLET (FP) PO SCH (09:14)
[2018-01-24 10:08] LABS: CARCINOEMBRYONIC ANTIGEN 43.5 ng/mL (0.0-4.7)
--- NOTE | 2018-01-24 10:09 | PN ---
Progress Note (short form) - Note Progress Note: doing well in good spirits no pain Vital Signs Period Temp Pulse Resp BP Sys/Lepe Pulse Ox Last 24 Hr 98.1 F-98.4 F 90-101 20-20 92-108/58-72 98-98 stable examn, CBC, BMP 01/24/18 06:00 01/24/18 06:00 Current Medications Generic Name Dose Route Start Last Admin Trade Name Freq PRN Reason Stop Dose Admin Acetaminophen 650 mg 01/22/18 19:57 Tylenol - PO Q4H PRN PAIN OR FEVER Albuterol Sulfate 1 amp 01/22/18 22:00 01/24/18 09:26 Ventolin 0.083% Nebulizer Soln - NEB 1 amp Q4HPO KELLEE Administration Allopurinol 300 mg 01/23/18 10:00 01/24/18 09:14 Zyloprim - PO 300 mg DAILY KELLEE Administration Furosemide 40 mg 01/23/18 10:00 01/24/18 09:12 Lasix Injection - IVPUSH 40 mg DAILY KELLEE Administration Gabapentin 300 mg 01/22/18 22:00 01/24/18 09:14 Neurontin - PO 300 mg BID KELLEE Administration Heparin Sodium (Porcine) 5,000 unit 01/22/18 22:00 01/24/18 09:13 Heparin - SQ 5,000 unit BID KELLEE Administration Ceftriaxone Sodium 1 gm/ 50 mls @ 200 mls/hr 01/23/18 10:47 01/24/18 09:13 Dextrose IVPB 200 mls/hr DAILY KELLEE Administration Protocol Metoprolol Tartrate 25 mg 01/22/18 22:00 01/24/18 09:14 Lopressor - PO 25 mg BID KELLEE Administration Tiotropium [place] 2 puff 01/23/18 10:00 01/24/18 09:14 Spiriva Respimat IH 2 puff DAILY KELLEE Administration Zolpidem Tartrate 5 mg 01/22/18 21:37 01/22/18 22:54 Ambien - PO 5 mg HS PRN Administration INSOMNIA 87 yr old male with h/o of colon cancer and colectomy 10 yrs ago now presenting with hypodense lesions in the liver. I had a long conversation with Mr. Ernandez on 01/24/18. I explained that he has liver lesions on his CT and that a biopsy and if proven liver mets from CRC would necessitate chemotherapy or ? immunotherapy (unlikely). Mr. Ernandez was not enthusiastic about this idea. He explained his reasoning - he has lived a good life for 88 years. He is willing to accept that the outcome of life is and he wants to have a comfortable life during the rest of his days rather than undergo biopsies and if needed chemotherapy. He has discussed this with his PCP (Dr. Montgomery) whom he has known for [address] Thomas father and he says that Dr. Montgomery agrees with his decision. If he is symptomatic Mr. Ernandez wants to be treated for his symptoms. Hence I also agree that further workup should be deferred for his liver lesions and Mr. Ernandez be treated for his pneumonia. I agree with Dr. Chu's note as well. Palliative care should be consulted to define goals of care and a DNR/ DNI be considered. Anemia of chronic disease - Transfuse 1 unit of PRBC today d/w Dr. Bell
--- NOTE | 2018-01-24 12:05 | PN ---
Progress Note, Physician History of Present Illness: Patient feeling a little better, still coughing, able to get some phlegm up. Right abd/ flank pain seems improved as well. Has discussed with oncologist and GI that he wishes no further treatment or evaluation of the liver lesions, as he will not agree to any treatment. - Current Medication List Current Medications: Active Medications Acetaminophen (Tylenol -) 650 mg PO Q4H PRN PRN Reason: PAIN OR FEVER Albuterol Sulfate (Ventolin 0.083% Nebulizer Soln -) 1 amp NEB Q4HPO [facility] Last Admin: 01/24/18 09:26 Dose: 1 amp Allopurinol (Zyloprim -) 300 mg PO DAILY [facility] Last Admin: 01/24/18 09:14 Dose: 300 mg Furosemide (Lasix Injection -) 40 mg IVPUSH DAILY [facility] Last Admin: 01/24/18 09:12 Dose: 40 mg Gabapentin (Neurontin -) 300 mg PO BID [facility] Last Admin: 01/24/18 09:14 Dose: 300 mg Heparin Sodium (Porcine) (Heparin -) 5,000 unit SQ BID [facility] Last Admin: 01/24/18 09:13 Dose: 5,000 unit Ceftriaxone Sodium 1 gm/ (Dextrose) 50 mls @ 200 mls/hr IVPB DAILY [facility]; Protocol Last Admin: 01/24/18 09:13 Dose: 200 mls/hr Metoprolol Tartrate (Lopressor -) 25 mg PO BID [facility] Last Admin: 01/24/18 09:14 Dose: 25 mg Tiotropium [place] (Spiriva Respimat) 2 puff IH DAILY [facility] Last Admin: 01/24/18 09:14 Dose: 2 puff Zolpidem Tartrate (Ambien -) 5 mg PO HS PRN PRN Reason: INSOMNIA Last Admin: 01/22/18 22:54 Dose: 5 mg - Objective Vital Signs: Vital Signs Temperature 98.4 F 01/24/18 08:10 Pulse Rate 100 H 01/24/18 08:10 Respiratory Rate 20 01/24/18 08:12 Blood Pressure 103/65 01/24/18 08:10 O2 Sat by Pulse Oximetry (%) 98 01/24/18 08:12 Constitutional: Yes: No Distress, Calm Neck: Yes: Supple, Trachea Midline Cardiovascular: Yes: Regular Rate and Rhythm, S1, S2. No: Murmur Respiratory: Yes: Regular, Diminished (at bases) Gastrointestinal: Yes: Normal Bowel Sounds, Soft, Tenderness (decreased in RUQ) , Other (colostomy present) Edema: Yes Edema: LLE: Trace, RLE: Trace Neurological: Yes: Alert, Oriented Labs: CBC, BMP 01/24/18 06:00 01/24/18 06:00 INR, PTT INR 1.22 (0.83-1.09) H 01/22/18 13:30 Problem List - Problems (1) Pneumonia Code(s): J18.9 - PNEUMONIA, UNSPECIFIED ORGANISM (2) COPD (chronic obstructive pulmonary disease) Code(s): J44.9 - CHRONIC OBSTRUCTIVE PULMONARY DISEASE, UNSPECIFIED (3) Colon cancer Code(s): C18.9 - MALIGNANT NEOPLASM OF COLON, UNSPECIFIED (4) Liver lesion Code(s): K76.9 - LIVER DISEASE, UNSPECIFIED (5) Atrial fibrillation Code(s): I48.91 - UNSPECIFIED ATRIAL FIBRILLATION (6) CHF (congestive heart failure) Code(s): I50.9 - HEART FAILURE, UNSPECIFIED (7) Anemia Code(s): D64.9 - ANEMIA, UNSPECIFIED Assessment/Plan Current Active Problems Anemia (Acute) Atrial fibrillation (Acute) CHF (congestive heart failure) (Acute) COPD (chronic obstructive pulmonary disease) (Acute) Colon cancer (Acute) Liver lesion (Acute) Pneumonia (Acute) -cont treatment for PNA/ fluid overload -will agree to blood transfusion, but refusing further evaluation for liver ( mets?) -appears to be ore comfortable, less abd pain with IV diuresis (did have a lot of subQ edema on CT scan which seems to be decreased with IV diuresis)
--- NOTE | 2018-01-24 12:32 | PN ---
Progress Note (short form) - Note Progress Note: PULMONARY OFFERS NO RESP COMPLAINTS VSS/AFEBRILE ANICTERIC LEFT BASE CRACKLES S1S2 BS+ MINIMAL EDEMA B/L LOWER EXT LABS/MEDS/NOTES/IMAGES REVIEWED SOB/COUGH AND SPUTUM PRODUCTION AND A LEFT BASE INFILTRATE ON CT CHEST BLOOD CULTURES NEGATIVE THUS FAR BRONCHODILATORS CONTINUE O2 NASAL (PATIENT HAS HOME O2) ANTIBIOTICS PER PRIMARY TEAM LIVER LESIONS LIKELY FROM COLON PRIMARY R [place] Problem List - Problems (1) CHF (congestive heart failure) Code(s): I50.9 - HEART FAILURE, UNSPECIFIED (2) COPD (chronic obstructive pulmonary disease) Code(s): J44.9 - CHRONIC OBSTRUCTIVE PULMONARY DISEASE, UNSPECIFIED (3) Colon cancer Code(s): C18.9 - MALIGNANT NEOPLASM OF COLON, UNSPECIFIED (4) Colostomy hernia Code(s): K94.09 - OTHER COMPLICATIONS OF COLOSTOMY (5) Liver metastases Code(s): C78.7 - SECONDARY MALIG NEOPLASM OF LIVER AND INTRAHEPATIC BILE DUCT (6) Weight loss Code(s): R63.4 - ABNORMAL WEIGHT LOSS
--- NOTE | 2018-01-24 13:14 | PN ---
Progress Note (short form) - Note Progress Note: a bit more comfortable less liver pain no fevers able to expectorate today Vital Signs Period Temp Pulse Resp BP Sys/Lepe Pulse Ox Last 24 Hr 98.1 F-98.4 F 90-101 20-20 92-108/58-72 98-98 cor-rrr lungs scattred rhonchi abd soft, +ruq nodular liver, less tender to palpation today ext less edema CBC, BMP 01/24/18 06:00 01/24/18 06:00 Microbiology 01/23/18 06:30 Urine - Urine Clean Catch Urine Culture - Final NO GROWTH OBTAINED 01/22/18 13:47 Blood - Peripheral Venous Blood Culture - Preliminary NO GROWTH OBTAINED AFTER 24 HOURS, INCUBATION TO CONTINUE FOR 4 DAYS. 01/22/18 13:45 Blood - Peripheral Venous Blood Culture - Preliminary NO GROWTH OBTAINED AFTER 24 HOURS, INCUBATION TO CONTINUE FOR 4 DAYS. a/p pneumonia liver lesions most likley mets he has declined workup continue rocephin f/u urinary antigens anemia- for transfusion Problem List - Problems (1) Pneumonia Code(s): J18.9 - PNEUMONIA, UNSPECIFIED ORGANISM (2) Liver lesion Code(s): K76.9 - LIVER DISEASE, UNSPECIFIED (3) Colon cancer Code(s): C18.9 - MALIGNANT NEOPLASM OF COLON, UNSPECIFIED (4) Anemia Code(s): D64.9 - ANEMIA, UNSPECIFIED
[2018-01-24] MEDS ORDERED: FUROSEMIDE 40 MG/4 ML INJECTABLE VIAL IVPUSH ONE (16:15)
[2018-01-24] MEDS: ACETAMINOPHEN 325 MG TABLET (FP) PO PRN ×2 (16:22→21:49)
[2018-01-24] MEDS ORDERED: POTASSIUM CHLORIDE TABS 20 MEQ TABLET.ER (FP) PO ONE (16:30)
[2018-01-24] MEDS: ZOLPIDEM TARTRATE 5 MG TABLET PO PRN (21:42)
[2018-01-25] MEDS: ALBUTEROL SO4 0.083% IH SOL 2.5 MG/3 ML VIAL.NEB. NEB SCH ×3 (01:25→10:03)
[2018-01-25 06:22] LABS: BASO % 0.8 % (0-2.0); EOS % 1.4 % (0-4.5); HEMATOCRIT 25.6 % (35.4-49); HEMOGLOBIN 7.9 GM/dL (11.7-16.9); LYMPH % 8.9 % (8-40); MCH 31.7 pg (25.7-33.7); MCHC 31.1 g/dl (32.0-35.9); MEAN PLT VOLUME 8.7 fl (7.5-11.1); MONO % 10.2 % (3.8-10.2); NEUT % 78.7 % (42.8-82.8); PLATELET COUNT 171 K/MM3 (134-434); RBC 2.51 M/mm3 (4.00-5.60); RDW 17.3 % (11.9-15.9); WHITE BLOOD COUNT 5.7 K/mm3 (4.0-10.0)
[2018-01-25 06:54] LABS: ALK PHOS 141 U/L (45-117); ANION GAP 3 MMOL/L (8-16); BILIRUBIN,TOTAL 0.5 mg/dL (0.2-1); BLOOD UREA NITROGEN 24 mg/dL (7-18); CALCIUM 8.9 mg/dL (8.5-10.1); CHLORIDE 98 mmol/L (98-107); CO2 38 mmol/L (21-32); CREATININE 0.8 mg/dL (0.55-1.3); GLUCOSE,RANDOM 86 mg/dL (74-106); POTASSIUM 3.7 mmol/L (3.5-5.1); SGOT/AST 40 U/L (15-37); SGPT/ALT 16 U/L (13-61); SODIUM 139 mmol/L (136-145); TOT PROT 5.5 g/dl (6.4-8.2)
[2018-01-25] MEDS ORDERED: cefTRIAXone SODIUM 1 GM VIAL ONE (09:59)
[2018-01-25] MEDS ORDERED: DEXTROSE 5%-WATER - 50 ML IVPB ONE (09:59)
[2018-01-25] MEDS ORDERED: PT OWN MED DRAWER 7, Y5N ONE (09:59)
[2018-01-25] MEDS: ALLOPURINOL 300 MG TABLET (FP) PO SCH (10:44)
[2018-01-25] MEDS: CEFTRIAXONE 1 GM in DEXTROSE 5%-WATER - 50 ML IVPB SCH (10:44)
[2018-01-25] MEDS: GABAPENTIN 300 MG CAPSULE (FP) PO SCH ×2 (10:44→21:24)
[2018-01-25] MEDS: FUROSEMIDE 40 MG/4 ML INJECTABLE VIAL IVPUSH SCH (10:45)
[2018-01-25] MEDS: HEPARIN NA (PORCINE) 5,000 UNITS/ML 1ML VIAL SQ SCH ×2 (10:45→21:24)
[2018-01-25] MEDS: METOPROLOL TARTRATE 25 MG TABLET (FP) PO SCH ×2 (10:45→21:24)
--- NOTE | 2018-01-25 11:06 | PN ---
Progress Note, Physician History of Present Illness: PULMONARY ALERT,STILL CONGESTED,+ COUGH (YELLOW SPUTUM) - Current Medication List Current Medications: Active Medications Acetaminophen (Tylenol -) 650 mg PO Q4H PRN PRN Reason: PAIN OR FEVER Last Admin: 01/24/18 21:49 Dose: 650 mg Albuterol Sulfate (Ventolin 0.083% Nebulizer Soln -) 1 amp NEB Q4HPO [facility] Last Admin: 01/25/18 10:03 Dose: 1 amp Allopurinol (Zyloprim -) 300 mg PO DAILY [facility] Last Admin: 01/25/18 10:44 Dose: 300 mg Furosemide (Lasix Injection -) 40 mg IVPUSH DAILY [facility] Last Admin: 01/25/18 10:45 Dose: 40 mg Furosemide (Lasix Injection -) 20 mg IVPUSH ONCE ONE Stop: 01/24/18 16:16 Gabapentin (Neurontin -) 300 mg PO BID [facility] Last Admin: 01/25/18 10:44 Dose: 300 mg Heparin Sodium (Porcine) (Heparin -) 5,000 unit SQ BID [facility] Last Admin: 01/25/18 10:45 Dose: 5,000 unit Ceftriaxone Sodium 1 gm/ (Dextrose) 50 mls @ 200 mls/hr IVPB DAILY [facility]; Protocol Last Admin: 01/25/18 10:44 Dose: 200 mls/hr Metoprolol Tartrate (Lopressor -) 25 mg PO BID [facility] Last Admin: 01/25/18 10:45 Dose: 25 mg Tiotropium [place] (Spiriva Respimat) 2 puff IH DAILY [facility] Last Admin: 01/24/18 09:14 Dose: 2 puff Zolpidem Tartrate (Ambien -) 5 mg PO HS PRN PRN Reason: INSOMNIA Last Admin: 01/24/18 21:42 Dose: 5 mg - Objective Vital Signs: Vital Signs Temperature 98.5 F 01/25/18 08:31 Pulse Rate 99 H 01/25/18 08:31 Respiratory Rate 22 H 01/25/18 08:36 Blood Pressure 106/58 L 01/25/18 08:31 O2 Sat by Pulse Oximetry (%) 97 01/25/18 08:36 Constitutional: Yes: Well Nourished, Calm Eyes: Yes: WNL HENT: Yes: WNL Neck: Yes: WNL Cardiovascular: Yes: Pulse Irregular, S1, S2 Respiratory: Yes: Rales, Rhonchi (BIBASILAR RALES AND SCATTERED PAOLA RHONCHI) Gastrointestinal: Yes: Normal Bowel Sounds, Soft Extremities: Yes: WNL Edema: No Labs: CBC, BMP 01/25/18 05:30 01/25/18 05:30 INR, PTT INR 1.22 (0.83-1.09) H 01/22/18 13:30 Assessment/Plan Problem List - Problems (1) CHF (congestive heart failure) Code(s): I50.9 - HEART FAILURE, UNSPECIFIED (2) COPD (chronic obstructive pulmonary disease) Code(s): J44.9 - CHRONIC OBSTRUCTIVE PULMONARY DISEASE, UNSPECIFIED (3) Colon cancer Code(s): C18.9 - MALIGNANT NEOPLASM OF COLON, UNSPECIFIED (4) Colostomy hernia Code(s): K94.09 - OTHER COMPLICATIONS OF COLOSTOMY (5) Liver metastases Code(s): C78.7 - SECONDARY MALIG NEOPLASM OF LIVER AND INTRAHEPATIC BILE DUCT (6) Weight loss Code(s): R63.4 - ABNORMAL WEIGHT LOSS Assessment/Plan H/O COLON CA LLL PNEUMONIA COPD O2 DEPENDENT AFIB INHALED BRONCHODILATORS CONTINUE O2 NASAL (PATIENT HAS HOME O2) ANTIBIOTICS DR CLAIRE
[2018-01-25] MEDS: ALBUTEROL SO4 2.5/IPRATROPIUM 0.5 INH SOL 3 ML VIAL.NEB. NEB SCH ×3 (11:45→19:34)
--- NOTE | 2018-01-25 12:14 | PN ---
Progress Note, Physician Chief Complaint: Mr Ernandez complains of cough that is only somewhat productive. States he is not having RUQ currently. No cp, sob, n/v. - Current Medication List Current Medications: Active Medications Acetaminophen (Tylenol -) 650 mg PO Q4H PRN PRN Reason: PAIN OR FEVER Last Admin: 01/24/18 21:49 Dose: 650 mg Albuterol Sulfate (Ventolin 0.083% Nebulizer Soln -) 1 amp NEB Q4H PRN PRN Reason: SHORT OF BREATH/WHEEZING Albuterol/Ipratropium (Duoneb -) 1 amp NEB RQID [facility] Last Admin: 01/25/18 11:45 Dose: 1 amp Allopurinol (Zyloprim -) 300 mg PO DAILY [facility] Last Admin: 01/25/18 10:44 Dose: 300 mg Furosemide (Lasix Injection -) 40 mg IVPUSH DAILY [facility] Last Admin: 01/25/18 10:45 Dose: 40 mg Furosemide (Lasix Injection -) 20 mg IVPUSH ONCE ONE Stop: 01/24/18 16:16 Gabapentin (Neurontin -) 300 mg PO BID [facility] Last Admin: 01/25/18 10:44 Dose: 300 mg Heparin Sodium (Porcine) (Heparin -) 5,000 unit SQ BID [facility] Last Admin: 01/25/18 10:45 Dose: 5,000 unit Ceftriaxone Sodium 1 gm/ (Dextrose) 50 mls @ 200 mls/hr IVPB DAILY [facility]; Protocol Last Admin: 01/25/18 10:44 Dose: 200 mls/hr Metoprolol Tartrate (Lopressor -) 25 mg PO BID [facility] Last Admin: 01/25/18 10:45 Dose: 25 mg Tiotropium [place] (Spiriva Respimat) 2 puff IH DAILY [facility] Last Admin: 01/24/18 09:14 Dose: 2 puff Zolpidem Tartrate (Ambien -) 5 mg PO HS PRN PRN Reason: INSOMNIA Last Admin: 01/24/18 21:42 Dose: 5 mg - Objective Vital Signs: Vital Signs Temperature 36.9 C 01/25/18 08:31 Pulse Rate 99 H 01/25/18 08:31 Respiratory Rate 22 H 01/25/18 08:36 Blood Pressure 106/58 L 01/25/18 08:31 O2 Sat by Pulse Oximetry (%) 97 01/25/18 08:36 Constitutional: Yes: No Distress, Calm Cardiovascular: Yes: Pulse Irregular. No: Tachycardia, Gallop, Murmur, Rub Respiratory: Yes: Regular, On Nasal O2, Rhonchi. No: CTA Bilaterally, Rales, Wheezes Gastrointestinal: Yes: Normal Bowel Sounds, Ascites, Tenderness (slight RUQ). No: Distention Extremities: Yes: WNL Edema: Yes Edema: LLE: 1+, RLE: 1+ Labs: CBC, BMP 01/25/18 05:30 01/25/18 05:30 INR, PTT INR 1.22 (0.83-1.09) H 01/22/18 13:30 Problem List - Problems (1) Pneumonia Assessment/Plan: -appreciate ID assistance -continue rocephin day 3 -added mucinex to help with secretions Code(s): J18.9 - PNEUMONIA, UNSPECIFIED ORGANISM (2) Atrial fibrillation Assessment/Plan: -rate controlled -continue metoprolol -plavix currently held, patient with anemia Code(s): I48.91 - UNSPECIFIED ATRIAL FIBRILLATION Qualifiers: Atrial fibrillation type: chronic Qualified Code(s): I48.2 - Chronic atrial fibrillation (3) CHF (congestive heart failure) Assessment/Plan: -continue lasix Code(s): I50.9 - HEART FAILURE, UNSPECIFIED (4) COPD (chronic obstructive pulmonary disease) Assessment/Plan: -appreciate pulmonary assistance -continue spiriva and duonebs -continue prn albuterol Code(s): J44.9 - CHRONIC OBSTRUCTIVE PULMONARY DISEASE, UNSPECIFIED (5) Liver metastases Assessment/Plan: -patient does not desire further work up -consult palliative care Code(s): C78.7 - SECONDARY MALIG NEOPLASM OF LIVER AND INTRAHEPATIC BILE DUCT (6) Chronic respiratory failure with hypoxia Assessment/Plan: -continue home oxygen Code(s): J96.11 - CHRONIC RESPIRATORY FAILURE WITH HYPOXIA
--- NOTE | 2018-01-25 12:51 | PN ---
Progress Note (short form) - Note Progress Note: has lost over 10 pounds feels more comfortable still coughing Vital Signs Period Temp Pulse Resp BP Sys/Lepe Pulse Ox Last 24 Hr 98.0 F-98.5 F 90-108 20-22 93-125/58-80 97-99 cor-rrr lungs bilateral rhonchi abd RUQ +liver edge-less tender ext no edema CBC, BMP 01/25/18 05:30 01/25/18 05:30 Microbiology 01/24/18 13:15 Urine For Antigen Detection Legionella Antigen - Final NEGATIVE 01/24/18 13:15 Urine For Antigen Detection Streptococcus pneumoniae Antigen (M - Final-NEGATIVE 01/22/18 13:47 Blood - Peripheral Venous Blood Culture - Preliminary NO GROWTH OBTAINED AFTER 48 HOURS, INCUBATION TO CONTINUE FOR 3 DAYS. 01/22/18 13:45 Blood - Peripheral Venous Blood Culture - Preliminary NO GROWTH OBTAINED AFTER 48 HOURS, INCUBATION TO CONTINUE FOR 3 DAYS. 01/23/18 06:30 Urine - Urine Clean Catch Urine Culture - Final NO GROWTH OBTAINED a/p pneumonia liver lesions most likly mets he has declined workup continue rocephin day #3, hopefully po augmentin soon improved with diureses Problem List - Problems (1) Pneumonia Code(s): J18.9 - PNEUMONIA, UNSPECIFIED ORGANISM (2) Liver lesion Code(s): K76.9 - LIVER DISEASE, UNSPECIFIED (3) Colon cancer Code(s): C18.9 - MALIGNANT NEOPLASM OF COLON, UNSPECIFIED (4) Anemia Code(s): D64.9 - ANEMIA, UNSPECIFIED
[2018-01-25] MEDS: guaiFENesin 600 MG TABLET.ER (FP) PO SCH ×2 (13:09→21:24)
[2018-01-25] MEDS: TIOTROPIUM BROMIDE 2.5 MCG (SPIRIVA) RESPIMAT INHALER IH SCH (13:10)
--- NOTE | 2018-01-25 15:52 | PN ---
Physical Exam: SUBJECTIVE: Patient seen and examined at bedside. No overnight events. No new complaints. Continues to have cough that is difficult to bring up phlem. Denies CP,MILLS,abdominal pain, palpitations, nausea or vomiting. OBJECTIVE: Vital Signs Period Temp Pulse Resp BP Sys/Lepe Pulse Ox Last 24 Hr 98.0 F-98.5 F 90-108 19-22 93-125/57-80 97-99 GENERAL: AAOx3, NAD EYES: PERRL, extraocular movements intact, sclera anicteric, ENT: moist mucous membranes. NECK: supple, no jvd LUNGS: diminished breath sounds bilaterally, course scattered rhonchi. HEART: tachycardic ABDOMEN: Soft, RUQ tenderness. , NABS, no guarding, no rebound, mild hepatomegally. EXTREMITIES: 2+ pulses, warm, well-perfused, no edema. NEUROLOGICAL: no focal def. PSYCH: Normal mood, normal affect. Laboratory Results - last 24 hr 01/25/18 01/25/18 05:30 05:30 WBC 5.7 RBC 2.51 L Hgb 7.9 L Hct 25.6 L MCV 102.0 H MCH 31.7 MCHC 31.1 L RDW 17.3 H Plt Count 171 MPV 8.7 Absolute Neuts (auto) 4.5 Neutrophils % 78.7 Lymphocytes % 8.9 Monocytes % 10.2 Eosinophils % 1.4 D Basophils % 0.8 Nucleated RBC % 0 Sodium 139 Potassium 3.7 Chloride 98 Carbon Dioxide 38 H Anion Gap 3 L BUN 24 H Creatinine 0.8 Creat Clearance w eGFR > 60 Random Glucose 86 Calcium 8.9 Total Bilirubin 0.5 AST 40 H ALT 16 Alkaline Phosphatase 141 H Total Protein 5.5 L Albumin 2.0 L Active Medications Generic Name Dose Route Start Last Admin Trade Name Freq PRN Reason Stop Dose Admin Acetaminophen 650 mg 01/22/18 19:57 01/24/18 21:49 Tylenol - PO 650 mg Q4H PRN Administration PAIN OR FEVER Albuterol Sulfate 1 amp 01/25/18 11:12 Ventolin 0.083% Nebulizer Soln - NEB Q4H PRN SHORT OF BREATH/WHEEZING Albuterol/Ipratropium 1 amp 01/25/18 12:00 01/25/18 11:45 Duoneb - NEB 1 amp RQID KELLEE Administration Allopurinol 300 mg 01/23/18 10:00 01/25/18 10:44 Zyloprim - PO 300 mg DAILY [facility]E Administration Furosemide 40 mg 01/23/18 10:00 01/25/18 10:45 Lasix Injection - IVPUSH 40 mg DAILY [facility]E Administration Furosemide 20 mg 01/24/18 16:15 Lasix Injection - IVPUSH 01/24/18 16:16 ONCE ONE Gabapentin 300 mg 01/22/18 22:00 01/25/18 10:44 Neurontin - PO 300 mg BID KELLEE Administration Guaifenesin 600 mg 01/25/18 12:15 01/25/18 13:09 Mucinex - PO 600 mg BID KELLEE Administration Heparin Sodium (Porcine) 5,000 unit 01/22/18 22:00 01/25/18 10:45 Heparin - SQ 5,000 unit BID KELLEE Administration Ceftriaxone Sodium 1 gm/ 50 mls @ 200 mls/hr 01/23/18 10:47 01/25/18 10:44 Dextrose IVPB 200 mls/hr DAILY [facility]E Administration Protocol Metoprolol Tartrate 25 mg 01/22/18 22:00 01/25/18 10:45 Lopressor - PO 25 mg BID KELLEE Administration Tiotropium [place] 2 puff 01/23/18 10:00 01/25/18 13:10 Spiriva Respimat IH 2 puff DAILY [facility] Administration Zolpidem Tartrate 5 mg 01/22/18 21:37 01/24/18 21:42 Ambien - PO 5 mg HS PRN Administration INSOMNIA ASSESSMENT/PLAN: 87 yr old male with h/o of colon cancer and colectomy 10 yrs ago now presenting with hypodense lesions in the liver. Problem List - Problems (1) Liver lesion Assessment/Plan: further workup should be deferred for his liver lesions until PNA is resolved. * Palliative care should be consulted to define goals of care and a DNR/DNI be considered. (2) Atrial fibrillation Code(s): I48.91 - UNSPECIFIED ATRIAL FIBRILLATION Qualifiers: Atrial fibrillation type: chronic Qualified Code(s): I48.2 - Chronic atrial fibrillation (3) CHF (congestive heart failure) Code(s): I50.9 - HEART FAILURE, UNSPECIFIED (4) COPD (chronic obstructive pulmonary disease) Code(s): J44.9 - CHRONIC OBSTRUCTIVE PULMONARY DISEASE, UNSPECIFIED (5) Pneumonia Code(s): J18.9 - PNEUMONIA, UNSPECIFIED ORGANISM Visit type - Emergency Visit Emergency Visit: Yes ED Registration Date: 01/22/18 Care time: The patient presented to the Emergency Department on the above date and was hospitalized for further evaluation of their emergent condition. - New Patient This patient is new to me today: Yes Date on this admission: 01/27/18 - Critical Care Critical Care patient: No
[2018-01-25] MEDS: ACETAMINOPHEN 325 MG TABLET (FP) PO PRN (21:24)
[2018-01-25] MEDS: ZOLPIDEM TARTRATE 5 MG TABLET PO PRN (21:24)
[2018-01-26] MEDS: ALBUTEROL SO4 0.083% IH SOL 2.5 MG/3 ML VIAL.NEB. NEB PRN (02:35)
[2018-01-26 07:27] LABS: EOS % 1.2 % (0-4.5); HEMATOCRIT 26.3 % (35.4-49); HEMOGLOBIN 8.1 GM/dL (11.7-16.9); LYMPH % 10.7 % (8-40); MCH 31.5 pg (25.7-33.7); MEAN CELL VOLUME 101.9 fl (80-96); MEAN PLT VOLUME 8.9 fl (7.5-11.1); MONO % 10.6 % (3.8-10.2); NEUT % 76.5 % (42.8-82.8); PLATELET COUNT 182 K/MM3 (134-434); RBC 2.58 M/mm3 (4.00-5.60); RDW 16.9 % (11.9-15.9); WHITE BLOOD COUNT 5.6 K/mm3 (4.0-10.0)
[2018-01-26 07:49] LABS: ANION GAP 6 MMOL/L (8-16); BLOOD UREA NITROGEN 25 mg/dL (7-18); CALCIUM 9.4 mg/dL (8.5-10.1); CHLORIDE 100 mmol/L (98-107); CO2 34 mmol/L (21-32); CREATININE 0.9 mg/dL (0.55-1.3); GLUCOSE,RANDOM 85 mg/dL (74-106); PHOSPHOROUS 2.9 mg/dL (2.5-4.9); POTASSIUM 3.9 mmol/L (3.5-5.1); SODIUM 140 mmol/L (136-145)
[2018-01-26] MEDS: ALBUTEROL SO4 2.5/IPRATROPIUM 0.5 INH SOL 3 ML VIAL.NEB. NEB SCH ×4 (08:46→19:12)
[2018-01-26] MEDS ORDERED: DEXTROSE 5%-WATER - 50 ML IVPB ONE (09:07)
[2018-01-26] MEDS ORDERED: cefTRIAXone SODIUM 1 GM VIAL ONE (09:07)
[2018-01-26] MEDS: GABAPENTIN 300 MG CAPSULE (FP) PO SCH ×2 (09:25→21:24)
[2018-01-26] MEDS: guaiFENesin 600 MG TABLET.ER (FP) PO SCH ×2 (09:25→21:24)
[2018-01-26] MEDS: HEPARIN NA (PORCINE) 5,000 UNITS/ML 1ML VIAL SQ SCH ×2 (09:25→21:24)
[2018-01-26] MEDS: CEFTRIAXONE 1 GM in DEXTROSE 5%-WATER - 50 ML IVPB SCH (09:25)
[2018-01-26] MEDS: TIOTROPIUM BROMIDE 2.5 MCG (SPIRIVA) RESPIMAT INHALER IH SCH (09:26)
[2018-01-26] MEDS: ALLOPURINOL 300 MG TABLET (FP) PO SCH (09:26)
[2018-01-26] MEDS: METOPROLOL TARTRATE 25 MG TABLET (FP) PO SCH ×2 (11:47→21:24)
[2018-01-26] MEDS: FUROSEMIDE 40 MG/4 ML INJECTABLE VIAL IVPUSH SCH (11:47)
--- NOTE | 2018-01-26 11:59 | PN ---
Progress Note, Physician History of Present Illness: PULMONARY ALERT,NO DISTRESS,LESS COUGH - Current Medication List Current Medications: Active Medications Acetaminophen (Tylenol -) 650 mg PO Q4H PRN PRN Reason: PAIN OR FEVER Last Admin: 01/25/18 21:24 Dose: 650 mg Albuterol Sulfate (Ventolin 0.083% Nebulizer Soln -) 1 amp NEB Q4H PRN PRN Reason: SHORT OF BREATH/WHEEZING Last Admin: 01/26/18 02:35 Dose: 1 amp Albuterol/Ipratropium (Duoneb -) 1 amp NEB RQID [facility] Last Admin: 01/26/18 08:46 Dose: 1 amp Allopurinol (Zyloprim -) 300 mg PO DAILY [facility] Last Admin: 01/26/18 09:26 Dose: 300 mg Furosemide (Lasix Injection -) 40 mg IVPUSH DAILY [facility] Last Admin: 01/26/18 11:47 Dose: 40 mg Furosemide (Lasix Injection -) 20 mg IVPUSH ONCE ONE Stop: 01/24/18 16:16 Gabapentin (Neurontin -) 300 mg PO BID [facility] Last Admin: 01/26/18 09:25 Dose: 300 mg Guaifenesin (Mucinex -) 600 mg PO BID [facility] Last Admin: 01/26/18 09:25 Dose: 600 mg Heparin Sodium (Porcine) (Heparin -) 5,000 unit SQ BID [facility] Last Admin: 01/26/18 09:25 Dose: 5,000 unit Ceftriaxone Sodium 1 gm/ (Dextrose) 50 mls @ 200 mls/hr IVPB DAILY [facility]; Protocol Last Admin: 01/26/18 09:25 Dose: 200 mls/hr Metoprolol Tartrate (Lopressor -) 25 mg PO BID [facility] Last Admin: 01/26/18 11:47 Dose: 25 mg Tiotropium [place] (Spiriva Respimat) 2 puff IH DAILY [facility] Last Admin: 01/26/18 09:26 Dose: 2 puff Zolpidem Tartrate (Ambien -) 5 mg PO HS PRN PRN Reason: INSOMNIA Last Admin: 01/25/18 21:24 Dose: 5 mg - Objective Vital Signs: Vital Signs Temperature 98.6 F 01/26/18 09:24 Pulse Rate 113 H 01/26/18 11:45 Respiratory Rate 16 01/26/18 11:45 Blood Pressure 113/67 01/26/18 11:45 O2 Sat by Pulse Oximetry (%) 98 01/26/18 08:12 Constitutional: Yes: Well Nourished, Calm Eyes: Yes: WNL HENT: Yes: WNL Neck: Yes: WNL Cardiovascular: Yes: Pulse Irregular, S1, S2 Respiratory: Yes: Rhonchi (FEW SCATTERED RHONCHI) Gastrointestinal: Yes: Normal Bowel Sounds, Soft Extremities: Yes: WNL Edema: No Labs: CBC, BMP 01/26/18 05:30 01/26/18 05:30 INR, PTT INR 1.22 (0.83-1.09) H 01/22/18 13:30 Assessment/Plan Problem List - Problems (1) CHF (congestive heart failure) Code(s): I50.9 - HEART FAILURE, UNSPECIFIED (2) COPD (chronic obstructive pulmonary disease) Code(s): J44.9 - CHRONIC OBSTRUCTIVE PULMONARY DISEASE, UNSPECIFIED (3) Colon cancer Code(s): C18.9 - MALIGNANT NEOPLASM OF COLON, UNSPECIFIED (4) Colostomy hernia Code(s): K94.09 - OTHER COMPLICATIONS OF COLOSTOMY (5) Liver metastases Code(s): C78.7 - SECONDARY MALIG NEOPLASM OF LIVER AND INTRAHEPATIC BILE DUCT (6) Weight loss Code(s): R63.4 - ABNORMAL WEIGHT LOSS Assessment/Plan H/O COLON CA LLL PNEUMONIA COPD O2 DEPENDENT AFIB INHALED BRONCHODILATORS CONTINUE O2 NASAL ANTIBI[address]ICS [address] CLAIRE
--- NOTE | 2018-01-26 12:31 | PN ---
Progress Note, Physician Chief Complaint: Mr Ernandez says he is feeling 50/50 today which is better than yesterday. Says his cough is better but still present. Still unable to expactorate. Denies cp, sob, n/v. Feels swelling is better. - Current Medication List Current Medications: Active Medications Acetaminophen (Tylenol -) 650 mg PO Q4H PRN PRN Reason: PAIN OR FEVER Last Admin: 01/25/18 21:24 Dose: 650 mg Albuterol Sulfate (Ventolin 0.083% Nebulizer Soln -) 1 amp NEB Q4H PRN PRN Reason: SHORT OF BREATH/WHEEZING Last Admin: 01/26/18 02:35 Dose: 1 amp Albuterol/Ipratropium (Duoneb -) 1 amp NEB RQID [facility] Last Admin: 01/26/18 11:50 Dose: 1 amp Allopurinol (Zyloprim -) 300 mg PO DAILY [facility] Last Admin: 01/26/18 09:26 Dose: 300 mg Furosemide (Lasix Injection -) 40 mg IVPUSH DAILY [facility] Last Admin: 01/26/18 11:47 Dose: 40 mg Furosemide (Lasix Injection -) 20 mg IVPUSH ONCE ONE Stop: 01/24/18 16:16 Gabapentin (Neurontin -) 300 mg PO BID [facility] Last Admin: 01/26/18 09:25 Dose: 300 mg Guaifenesin (Mucinex -) 600 mg PO BID [facility] Last Admin: 01/26/18 09:25 Dose: 600 mg Heparin Sodium (Porcine) (Heparin -) 5,000 unit SQ BID [facility] Last Admin: 01/26/18 09:25 Dose: 5,000 unit Ceftriaxone Sodium 1 gm/ (Dextrose) 50 mls @ 200 mls/hr IVPB DAILY [facility]; Protocol Last Admin: 01/26/18 09:25 Dose: 200 mls/hr Metoprolol Tartrate (Lopressor -) 25 mg PO BID [facility] Last Admin: 01/26/18 11:47 Dose: 25 mg Tiotropium [place] (Spiriva Respimat) 2 puff IH DAILY [facility] Last Admin: 01/26/18 09:26 Dose: 2 puff Zolpidem Tartrate (Ambien -) 5 mg PO HS PRN PRN Reason: INSOMNIA Last Admin: 01/25/18 21:24 Dose: 5 mg - Objective Vital Signs: Vital Signs Temperature 37.0 C 01/26/18 09:24 Pulse Rate 113 H 01/26/18 11:45 Respiratory Rate 16 01/26/18 11:45 Blood Pressure 113/67 01/26/18 11:45 O2 Sat by Pulse Oximetry (%) 98 01/26/18 08:12 Constitutional: Yes: Well Nourished, No Distress, Calm Cardiovascular: Yes: Regular Rate and Rhythm. No: Gallop, Murmur, Rub Respiratory: Yes: Regular, On Nasal O2, Rhonchi (diffuse, course, loud). No: CTA Bilaterally, Rales, Wheezes Gastrointestinal: Yes: Normal Bowel Sounds, Soft, Ascites. No: Tenderness Extremities: Yes: WNL Edema: Yes Edema: LLE: 1+, RLE: 1+ Labs: CBC, BMP 01/26/18 05:30 01/26/18 05:30 INR, PTT INR 1.22 (0.83-1.09) H 01/22/18 13:30 Problem List - Problems (1) Pneumonia Code(s): J18.9 - PNEUMONIA, UNSPECIFIED ORGANISM (2) Atrial fibrillation Code(s): I48.91 - UNSPECIFIED ATRIAL FIBRILLATION Qualifiers: Atrial fibrillation type: chronic Qualified Code(s): I48.2 - Chronic atrial fibrillation (3) CHF (congestive heart failure) Code(s): I50.9 - HEART FAILURE, UNSPECIFIED (4) COPD (chronic obstructive pulmonary disease) Code(s): J44.9 - CHRONIC OBSTRUCTIVE PULMONARY DISEASE, UNSPECIFIED (5) Liver metastases Code(s): C78.7 - SECONDARY MALIG NEOPLASM OF LIVER AND INTRAHEPATIC BILE DUCT (6) Chronic respiratory failure with hypoxia Code(s): J96.11 - CHRONIC RESPIRATORY FAILURE WITH HYPOXIA Assessment/Plan (1) Pneumonia Assessment/Plan: -appreciate ID assistance -continue rocephin day 4 -mucinex added -will add chest PT to help with secretions Code(s): J18.9 - PNEUMONIA, UNSPECIFIED ORGANISM (2) Atrial fibrillation Assessment/Plan: -rate controlled -continue metoprolol -plavix currently held, patient with anemia Code(s): I48.91 - UNSPECIFIED ATRIAL FIBRILLATION Qualifiers: Atrial fibrillation type: chronic Qualified Code(s): I48.2 - Chronic atrial fibrillation (3) CHF (congestive heart failure) Assessment/Plan: -continue lasix -unclear type of CHF and if acute exacerbation or edema secondary to liver metastases -will order ECHO but cannot say if this is acute on chronic Code(s): I50.9 - HEART FAILURE, UNSPECIFIED (4) COPD (chronic obstructive pulmonary disease) Assessment/Plan: -appreciate pulmonary assistance, case d/w Dr Jolley -continue spiriva and duonebs -continue prn albuterol Code(s): J44.9 - CHRONIC OBSTRUCTIVE PULMONARY DISEASE, UNSPECIFIED (5) Liver metastases Assessment/Plan: -patient does not desire further work up -palliative care discussing options Code(s): C78.7 - SECONDARY MALIG NEOPLASM OF LIVER AND INTRAHEPATIC BILE DUCT (6) Chronic respiratory failure with hypoxia Assessment/Plan: -continue home oxygen Code(s): J96.11 - CHRONIC RESPIRATORY FAILURE WITH HYPOXIA
--- NOTE | 2018-01-26 16:33 | ECHO ---
Name: CHANTALE VILLALTA Exam:Adult Echocardiogram Study Date: 01/26/2018 01:47 PM Age: 87 yrs Reason For Study: CHF Height: 67 in Weight: 158 lb BSA: 1.8 m2 MMode/2D Measurements & Calculations IVSd: 0.91 cm Ao root diam: 3.3 cm LVIDd: 5.1 cm LA dimension: 4.3 cm LVIDs: 3.4 cm LVPWd: 0.81 cm EDV(Teich): 125.1 ml TAPSE: 2.1 cm ESV(Teich): 48.8 ml RV S Alexander: 20.4 cm/sec Doppler Measurements & Calculations MV E max alexander: 67.5 cm/sec Ao V2 max: 145.5 cm/sec MV A max alexander: 24.2 cm/sec Ao max P.5 mmHg MV E/A: 2.8 MV dec time: 0.22 sec LV V1 max P.3 mmHg MR max alexander: 457.4 cm/sec LV V1 max: 75.1 cm/sec MR max P.7 mmHg TR max alexander: 266.3 cm/sec Med Peak E' Alexander: 10.1 cm/sec TR max P.5 mmHg Med E/e': 6.7 Lat Peak E' Alexander: 11.9 cm/sec Lat E/e': 5.7 Left Ventricle The left ventricular size, thickness and function are normal. EF 61%. Right Ventricle The right ventricle is normal in size and function. Atria The left atrium is moderately dilated. Right atrium not well visualized. Mitral Valve The mitral valve is grossly normal. There is mild to moderate mitral regurgitation. Tricuspid Valve The tricuspid valve is normal. There is mild tricuspid regurgitation. Aortic Valve Fibrocalcific changes of the aortic valve with mild aortic stenosis. The max PG is 8.5 mmHg. Pulmonic Valve The pulmonic valve is not well seen, but is grossly normal. Great Vessels The aortic root is normal size. Pericardium/Pleura There is no pericardial effusion. Interpretation Summary The right ventricle is normal in size and function. The left atrium is moderately dilated. Right atrium not well visualized. There is mild to moderate mitral regurgitation. There is mild tricuspid regurgitation. Fibrocalcific changes of the aortic valve with mild aortic stenosis. The max PG is 8.5 mmHg. The pulmonic valve is not well seen, but is grossly normal. The aortic root is normal size. MD Axel Kennedy 01/26/2018 04:33 PM
[2018-01-26] MEDS: ZOLPIDEM TARTRATE 5 MG TABLET PO PRN (21:24)
[2018-01-27] MEDS: ALBUTEROL SO4 0.083% IH SOL 2.5 MG/3 ML VIAL.NEB. NEB PRN ×2 (01:11→05:49)
[2018-01-27 06:50] LABS: BASO % 1.2 % (0-2.0); EOS % 1.1 % (0-4.5); LYMPH % 11.3 % (8-40); MCH 31.7 pg (25.7-33.7); MCHC 30.9 g/dl (32.0-35.9); MEAN CELL VOLUME 102.7 fl (80-96); MEAN PLT VOLUME 8.3 fl (7.5-11.1); MONO % 9.9 % (3.8-10.2); NEUT % 76.5 % (42.8-82.8); PLATELET COUNT 200 K/MM3 (134-434); RBC 2.53 M/mm3 (4.00-5.60); RDW 16.5 % (11.9-15.9); WHITE BLOOD COUNT 6.5 K/mm3 (4.0-10.0)
[2018-01-27] MEDS: ALBUTEROL SO4 2.5/IPRATROPIUM 0.5 INH SOL 3 ML VIAL.NEB. NEB SCH ×4 (07:40→20:43)
[2018-01-27 08:23] LABS: ANION GAP 9 MMOL/L (8-16); BLOOD UREA NITROGEN 27 mg/dL (7-18); CALCIUM 9.4 mg/dL (8.5-10.1); CHLORIDE 97 mmol/L (98-107); CO2 35 mmol/L (21-32); CREATININE 0.8 mg/dL (0.55-1.3); GLUCOSE,RANDOM 82 mg/dL (74-106); PHOSPHOROUS 2.8 mg/dL (2.5-4.9); POTASSIUM 4.3 mmol/L (3.5-5.1); SODIUM 141 mmol/L (136-145)
[2018-01-27] MEDS ORDERED: DEXTROSE 5%-WATER - 50 ML IVPB ONE (08:53)
[2018-01-27] MEDS ORDERED: cefTRIAXone SODIUM 1 GM VIAL ONE (08:53)
[2018-01-27] MEDS ORDERED: PT OWN MED DRAWER 7, Y5N ONE (08:53)
[2018-01-27] MEDS: guaiFENesin 600 MG TABLET.ER (FP) PO SCH ×2 (09:37→21:43)
[2018-01-27] MEDS: GABAPENTIN 300 MG CAPSULE (FP) PO SCH ×2 (09:37→21:43)
[2018-01-27] MEDS: ALLOPURINOL 300 MG TABLET (FP) PO SCH (09:37)
[2018-01-27] MEDS: METOPROLOL TARTRATE 25 MG TABLET (FP) PO SCH ×2 (09:37→21:43)
[2018-01-27] MEDS: CEFTRIAXONE 1 GM in DEXTROSE 5%-WATER - 50 ML IVPB SCH (09:38)
[2018-01-27] MEDS: HEPARIN NA (PORCINE) 5,000 UNITS/ML 1ML VIAL SQ SCH ×2 (09:38→21:43)
[2018-01-27] MEDS: FUROSEMIDE 40 MG/4 ML INJECTABLE VIAL IVPUSH SCH (09:38)
[2018-01-27] MEDS: ACETAMINOPHEN 325 MG TABLET (FP) PO PRN (10:12)
--- NOTE | 2018-01-27 11:03 | PN ---
Progress Note, Physician History of Present Illness: pulmonary alert,feels weak,congested - Current Medication List Current Medications: Active Medications Acetaminophen (Tylenol -) 650 mg PO Q4H PRN PRN Reason: PAIN OR FEVER Last Admin: 01/27/18 10:12 Dose: 650 mg Albuterol Sulfate (Ventolin 0.083% Nebulizer Soln -) 1 amp NEB Q4H PRN PRN Reason: SHORT OF BREATH/WHEEZING Last Admin: 01/27/18 05:49 Dose: 1 amp Albuterol/Ipratropium (Duoneb -) 1 amp NEB RQID [facility] Last Admin: 01/27/18 07:40 Dose: 1 amp Allopurinol (Zyloprim -) 300 mg PO DAILY [facility] Last Admin: 01/27/18 09:37 Dose: 300 mg Furosemide (Lasix Injection -) 40 mg IVPUSH DAILY [facility] Last Admin: 01/27/18 09:38 Dose: 40 mg Furosemide (Lasix Injection -) 20 mg IVPUSH ONCE ONE Stop: 01/24/18 16:16 Gabapentin (Neurontin -) 300 mg PO BID [facility] Last Admin: 01/27/18 09:37 Dose: 300 mg Guaifenesin (Mucinex -) 600 mg PO BID [facility] Last Admin: 01/27/18 09:37 Dose: 600 mg Heparin Sodium (Porcine) (Heparin -) 5,000 unit SQ BID [facility] Last Admin: 01/27/18 09:38 Dose: 5,000 unit Ceftriaxone Sodium 1 gm/ (Dextrose) 50 mls @ 200 mls/hr IVPB DAILY [facility]; Protocol Last Admin: 01/27/18 09:38 Dose: 200 mls/hr Metoprolol Tartrate (Lopressor -) 25 mg PO BID [facility] Last Admin: 01/27/18 09:37 Dose: 25 mg Tiotropium [place] (Spiriva Respimat) 2 puff IH DAILY [facility] Last Admin: 01/26/18 09:26 Dose: 2 puff Zolpidem Tartrate (Ambien -) 5 mg PO HS PRN PRN Reason: INSOMNIA Last Admin: 01/26/18 21:24 Dose: 5 mg - Objective Vital Signs: Vital Signs Temperature 984 F H 01/27/18 10:00 Pulse Rate 114 H 01/27/18 10:00 Respiratory Rate 18 01/27/18 10:00 Blood Pressure 111/67 01/27/18 10:00 O2 Sat by Pulse Oximetry (%) 97 01/26/18 21:00 Constitutional: Yes: Well Nourished, Calm Eyes: Yes: WNL HENT: Yes: WNL Neck: Yes: WNL Cardiovascular: Yes: Pulse Irregular, S1, S2 Respiratory: Yes: Rhonchi (scattered rhonchi) Gastrointestinal: Yes: Normal Bowel Sounds, Soft Extremities: Yes: WNL Edema: No Labs: CBC, BMP 01/27/18 05:30 01/27/18 05:30 INR, PTT INR 1.22 (0.83-1.09) H 01/22/18 13:30 Assessment/Plan Problem List - Problems (1) CHF (congestive heart failure) Code(s): I50.9 - HEART FAILURE, UNSPECIFIED (2) COPD (chronic obstructive pulmonary disease) Code(s): J44.9 - CHRONIC OBSTRUCTIVE PULMONARY DISEASE, UNSPECIFIED (3) Colon cancer Code(s): C18.9 - MALIGNANT NEOPLASM OF COLON, UNSPECIFIED (4) Colostomy hernia Code(s): K94.09 - OTHER COMPLICATIONS OF COLOSTOMY (5) Liver metastases Code(s): C78.7 - SECONDARY MALIG NEOPLASM OF LIVER AND INTRAHEPATIC BILE DUCT (6) Weight loss Code(s): R63.4 - ABNORMAL WEIGHT LOSS Assessment/Plan H/O COLON CA LLL PNEUMONIA COPD O2 DEPENDENT AFIB INHALED BRONCHODILATORS CONTINUE O2 NASAL ANTIBIOTICS CHEST PT DR CLAIRE
--- NOTE | 2018-01-27 12:21 | PN ---
Progress Note, Physician Chief Complaint: Mr Ernandez says he is not feeling well, still with persistent cough that is wet sounding but non-productive. No cp or n/v. - Current Medication List Current Medications: Active Medications Acetaminophen (Tylenol -) 650 mg PO Q4H PRN PRN Reason: PAIN OR FEVER Last Admin: 01/27/18 10:12 Dose: 650 mg Albuterol Sulfate (Ventolin 0.083% Nebulizer Soln -) 1 amp NEB Q4H PRN PRN Reason: SHORT OF BREATH/WHEEZING Last Admin: 01/27/18 05:49 Dose: 1 amp Albuterol/Ipratropium (Duoneb -) 1 amp NEB RQID [facility] Last Admin: 01/27/18 07:40 Dose: 1 amp Allopurinol (Zyloprim -) 300 mg PO DAILY [facility] Last Admin: 01/27/18 09:37 Dose: 300 mg Furosemide (Lasix Injection -) 20 mg IVPUSH ONCE ONE Stop: 01/24/18 16:16 Gabapentin (Neurontin -) 300 mg PO BID [facility] Last Admin: 01/27/18 09:37 Dose: 300 mg Guaifenesin (Mucinex -) 600 mg PO BID [facility] Last Admin: 01/27/18 09:37 Dose: 600 mg Heparin Sodium (Porcine) (Heparin -) 5,000 unit SQ BID [facility] Last Admin: 01/27/18 09:38 Dose: 5,000 unit Ceftriaxone Sodium 1 gm/ (Dextrose) 50 mls @ 200 mls/hr IVPB DAILY [facility]; Protocol Last Admin: 01/27/18 09:38 Dose: 200 mls/hr Metoprolol Tartrate (Lopressor -) 25 mg PO BID [facility] Last Admin: 01/27/18 09:37 Dose: 25 mg Tiotropium [place] (Spiriva Respimat) 2 puff IH DAILY [facility] Last Admin: 01/26/18 09:26 Dose: 2 puff Zolpidem Tartrate (Ambien -) 5 mg PO HS PRN PRN Reason: INSOMNIA Last Admin: 01/26/18 21:24 Dose: 5 mg - Objective Vital Signs: Vital Signs Temperature 528.8 C H 01/27/18 10:00 Pulse Rate 114 H 01/27/18 10:00 Respiratory Rate 18 01/27/18 10:00 Blood Pressure 111/67 01/27/18 10:00 O2 Sat by Pulse Oximetry (%) 96 01/27/18 09:00 Constitutional: Yes: Well Nourished, No Distress, Calm Cardiovascular: Yes: Regular Rate and Rhythm. No: Gallop, Murmur, Rub Respiratory: Yes: Regular, Cough (wet sounding), Rhonchi (bibasilar). No: CTA Bilaterally, Rales, Wheezes Gastrointestinal: Yes: Normal Bowel Sounds, Soft, Ascites. No: Tenderness Extremities: Yes: WNL Edema: Yes Edema: LLE: 1+, RLE: 1+ Labs: CBC, BMP 01/27/18 05:30 01/27/18 05:30 INR, PTT INR 1.22 (0.83-1.09) H 01/22/18 13:30 Problem List - Problems (1) Pneumonia Code(s): J18.9 - PNEUMONIA, UNSPECIFIED ORGANISM (2) Atrial fibrillation Code(s): I48.91 - UNSPECIFIED ATRIAL FIBRILLATION Qualifiers: Atrial fibrillation type: chronic Qualified Code(s): I48.2 - Chronic atrial fibrillation (3) COPD (chronic obstructive pulmonary disease) Code(s): J44.9 - CHRONIC OBSTRUCTIVE PULMONARY DISEASE, UNSPECIFIED (4) Liver metastases Code(s): C78.7 - SECONDARY MALIG NEOPLASM OF LIVER AND INTRAHEPATIC BILE DUCT (5) Chronic respiratory failure with hypoxia Code(s): J96.11 - CHRONIC RESPIRATORY FAILURE WITH HYPOXIA (6) Edema due to hypoalbuminemia Code(s): R60.9 - EDEMA, UNSPECIFIED; E88.09 - OTH DISORDERS OF PLASMA-PROTEIN METABOLISM, NEC Assessment/Plan (1) Pneumonia Assessment/Plan: -appreciate ID assistance -continue rocephin day 5 -continue mucinex and chest PT Code(s): J18.9 - PNEUMONIA, UNSPECIFIED ORGANISM (2) Atrial fibrillation Assessment/Plan: -rate controlled -continue metoprolol -plavix currently held, patient with anemia Code(s): I48.91 - UNSPECIFIED ATRIAL FIBRILLATION Qualifiers: Atrial fibrillation type: chronic Qualified Code(s): I48.2 - Chronic atrial fibrillation (3) Edema secondary to liver metastases Assessment/Plan: -change lasix to po Code(s): (4) COPD (chronic obstructive pulmonary disease) Assessment/Plan: -appreciate pulmonary assistance, case d/w Dr Jolley -continue spiriva and duonebs -continue prn albuterol Code(s): J44.9 - CHRONIC OBSTRUCTIVE PULMONARY DISEASE, UNSPECIFIED (5) Liver metastases Assessment/Plan: -patient does not desire further work up -palliative care discussing options Code(s): C78.7 - SECONDARY MALIG NEOPLASM OF LIVER AND INTRAHEPATIC BILE DUCT (6) Chronic respiratory failure with hypoxia Assessment/Plan: -continue home oxygen Code(s): J96.11 - CHRONIC RESPIRATORY FAILURE WITH HYPOXIA
--- NOTE | 2018-01-27 13:59 | PN ---
Progress Note (short form) - Note Progress Note: has lost over 10 pounds still with cough- yellow sputum,no hemoptysis Vital Signs Period Temp Pulse Resp BP Sys/Lepe Pulse Ox Last 24 Hr 98.0 F-984 F 92-114 18-18 97-111/55-67 96-97 cor-rrr lungs scattered ronchi abd soft,nt, +liver edge, less tender ext no edema CBC, BMP 01/27/18 05:30 01/27/18 05:30 Microbiology 01/22/18 13:47 Blood - Peripheral Venous Blood Culture - Final NO GROWTH AFTER 5 DAYS INCUBATION 01/22/18 13:45 Blood - Peripheral Venous Blood Culture - Final NO GROWTH AFTER 5 DAYS INCUBATION 01/24/18 13:15 Urine For Antigen Detection Legionella Antigen - Final 01/24/18 13:15 Urine For Antigen Detection Streptococcus pneumoniae Antigen (M - Final 01/23/18 06:30 Urine - Urine Clean Catch Urine Culture - Final NO GROWTH OBTAINED a/p pneumonia liver lesions most likly mets he has declined workup continue rocephin day #5, hopefully po augmentin soon repeat cxray Problem List - Problems (1) Pneumonia Code(s): J18.9 - PNEUMONIA, UNSPECIFIED ORGANISM (2) Liver lesion Code(s): K76.9 - LIVER DISEASE, UNSPECIFIED (3) Colon cancer Code(s): C18.9 - MALIGNANT NEOPLASM OF COLON, UNSPECIFIED (4) Anemia Code(s): D64.9 - ANEMIA, UNSPECIFIED
[2018-01-27] MEDS: TIOTROPIUM BROMIDE 2.5 MCG (SPIRIVA) RESPIMAT INHALER IH SCH (17:06)
[2018-01-27] MEDS: ZOLPIDEM TARTRATE 5 MG TABLET PO PRN (21:43)
[2018-01-28 06:44] LABS: EOS % 1.4 % (0-4.5); HEMOGLOBIN 7.9 GM/dL (11.7-16.9); LYMPH % 10.8 % (8-40); MCH 31.4 pg (25.7-33.7); MCHC 30.4 g/dl (32.0-35.9); MEAN CELL VOLUME 103.5 fl (80-96); MEAN PLT VOLUME 8.2 fl (7.5-11.1); MONO % 9.5 % (3.8-10.2); NEUT % 74.3 % (42.8-82.8); PLATELET COUNT 215 K/MM3 (134-434); RBC 2.51 M/mm3 (4.00-5.60); RDW 16.8 % (11.9-15.9); WHITE BLOOD COUNT 6.4 K/mm3 (4.0-10.0)
[2018-01-28 06:55] LABS: ANION GAP 6 MMOL/L (8-16); BLOOD UREA NITROGEN 28 mg/dL (7-18); CALCIUM 9.7 mg/dL (8.5-10.1); CHLORIDE 98 mmol/L (98-107); CO2 34 mmol/L (21-32); CREATININE 0.8 mg/dL (0.55-1.3); GLUCOSE,RANDOM 81 mg/dL (74-106); MAGNESIUM 2.1 mg/dL (1.8-2.4); POTASSIUM 4.3 mmol/L (3.5-5.1); SODIUM 139 mmol/L (136-145)
[2018-01-28] MEDS: ALBUTEROL SO4 2.5/IPRATROPIUM 0.5 INH SOL 3 ML VIAL.NEB. NEB SCH ×4 (07:30→20:58)
[2018-01-28] MEDS ORDERED: FUROSEMIDE 40 MG TABLET (FP) PO SCH (10:00)
[2018-01-28] MEDS ORDERED: DEXTROSE 5%-WATER - 50 ML IVPB ONE (10:30)
[2018-01-28] MEDS ORDERED: PT OWN MED DRAWER 7, Y5N ONE (10:30)
[2018-01-28] MEDS ORDERED: cefTRIAXone SODIUM 1 GM VIAL ONE (10:30)
[2018-01-28] MEDS: HEPARIN NA (PORCINE) 5,000 UNITS/ML 1ML VIAL SQ SCH ×2 (11:02→21:03)
[2018-01-28] MEDS: CEFTRIAXONE 1 GM in DEXTROSE 5%-WATER - 50 ML IVPB SCH (11:02)
[2018-01-28] MEDS: ALLOPURINOL 300 MG TABLET (FP) PO SCH (11:03)
[2018-01-28] MEDS: GABAPENTIN 300 MG CAPSULE (FP) PO SCH ×2 (11:03→21:03)
[2018-01-28] MEDS: guaiFENesin 600 MG TABLET.ER (FP) PO SCH ×2 (11:03→21:03)
[2018-01-28] MEDS: FUROSEMIDE 40 MG TABLET (FP) PO SCH (11:03)
[2018-01-28] MEDS: METOPROLOL TARTRATE 25 MG TABLET (FP) PO SCH ×2 (11:03→21:03)
[2018-01-28] MEDS: TIOTROPIUM BROMIDE 2.5 MCG (SPIRIVA) RESPIMAT INHALER IH SCH (11:03)
--- NOTE | 2018-01-28 11:14 | PN ---
Progress Note, Physician History of Present Illness: pulmonary alert,feeling better today,less congested - Current Medication List Current Medications: Active Medications Acetaminophen (Tylenol -) 650 mg PO Q4H PRN PRN Reason: PAIN OR FEVER Albuterol Sulfate (Ventolin 0.083% Nebulizer Soln -) 1 amp NEB Q4H PRN PRN Reason: SHORT OF BREATH/WHEEZING Albuterol/Ipratropium (Duoneb -) 1 amp NEB RQID [facility] Last Admin: 01/28/18 07:30 Dose: 1 amp Allopurinol (Zyloprim -) 300 mg PO DAILY [facility] Last Admin: 01/28/18 11:03 Dose: 300 mg Furosemide (Lasix -) 40 mg PO DAILY [facility] Last Admin: 01/28/18 11:03 Dose: 40 mg Gabapentin (Neurontin -) 300 mg PO BID [facility] Last Admin: 01/28/18 11:03 Dose: 300 mg Guaifenesin (Mucinex -) 600 mg PO BID [facility] Last Admin: 01/28/18 11:03 Dose: 600 mg Heparin Sodium (Porcine) (Heparin -) 5,000 unit SQ BID [facility] Last Admin: 01/28/18 11:02 Dose: 5,000 unit Ceftriaxone Sodium 1 gm/ (Dextrose) 50 mls @ 200 mls/hr IVPB DAILY [facility]; Protocol Last Admin: 01/28/18 11:02 Dose: 200 mls/hr Metoprolol Tartrate (Lopressor -) 25 mg PO BID [facility] Last Admin: 01/28/18 11:03 Dose: 25 mg Tiotropium [place] (Spiriva Respimat) 2 puff IH DAILY [facility] Last Admin: 01/28/18 11:03 Dose: 2 puff Zolpidem Tartrate (Ambien -) 5 mg PO HS PRN PRN Reason: INSOMNIA Last Admin: 01/27/18 21:43 Dose: 5 mg - Objective Vital Signs: Vital Signs Temperature 98 F 01/28/18 10:00 Pulse Rate 102 H 01/28/18 10:00 Respiratory Rate 18 01/28/18 10:00 Blood Pressure 100/62 01/28/18 10:00 O2 Sat by Pulse Oximetry (%) 97 01/28/18 09:00 Constitutional: Yes: Well Nourished, Calm Eyes: Yes: WNL HENT: Yes: WNL Neck: Yes: WNL Cardiovascular: Yes: Pulse Irregular, S1, S2 Respiratory: Yes: Rhonchi (few scattered bethanie rhonchi) Gastrointestinal: Yes: Normal Bowel Sounds, Soft Extremities: Yes: WNL Edema: No Labs: CBC, BMP 01/28/18 05:30 01/28/18 05:30 INR, PTT INR 1.22 (0.83-1.09) H 01/22/18 13:30 Assessment/Plan Problem List - Problems (1) CHF (congestive heart failure) Code(s): I50.9 - HEART FAILURE, UNSPECIFIED (2) COPD (chronic obstructive pulmonary disease) Code(s): J44.9 - CHRONIC OBSTRUCTIVE PULMONARY DISEASE, UNSPECIFIED (3) Colon cancer Code(s): C18.9 - MALIGNANT NEOPLASM OF COLON, UNSPECIFIED (4) Colostomy hernia Code(s): K94.09 - OTHER COMPLICATIONS OF COLOSTOMY (5) Liver metastases Code(s): C78.7 - SECONDARY MALIG NEOPLASM OF LIVER AND INTRAHEPATIC BILE DUCT (6) Weight loss Code(s): R63.4 - ABNORMAL WEIGHT LOSS Assessment/Plan H/O COLON CA LLL PNEUMONIA COPD O2 DEPENDENT AFIB INHALED BRONCHODILATORS CONTINUE O2 NASAL CONTINUE ANTIBIOTICS CHEST PT DR BRILL
[2018-01-28] MEDS: ACETAMINOPHEN 325 MG TABLET (FP) PO PRN ×2 (11:59→21:04)
[2018-01-28 12:06] VITALS: BMI 24.4
[2018-01-28] MEDS ORDERED: oxyCODONE HCL 5 MG TABLET PO PRN (13:36)
--- NOTE | 2018-01-28 15:44 | PN ---
Progress Note, Physician Chief Complaint: Mr Ernandez today complains of nerve pain in his legs. He says this pain is chronic but he was more concerned with his coughing until today. He still has a cough but is improving. No cp or n/v. - Current Medication List Current Medications: Active Medications Acetaminophen (Tylenol -) 650 mg PO Q4H PRN PRN Reason: PAIN OR FEVER Last Admin: 01/28/18 11:59 Dose: 650 mg Albuterol Sulfate (Ventolin 0.083% Nebulizer Soln -) 1 amp NEB Q4H PRN PRN Reason: SHORT OF BREATH/WHEEZING Albuterol/Ipratropium (Duoneb -) 1 amp NEB RQID [facility] Last Admin: 01/28/18 11:20 Dose: 1 amp Allopurinol (Zyloprim -) 300 mg PO DAILY [facility] Last Admin: 01/28/18 11:03 Dose: 300 mg Furosemide (Lasix -) 40 mg PO DAILY [facility] Last Admin: 01/28/18 11:03 Dose: 40 mg Gabapentin (Neurontin -) 300 mg PO BID [facility] Last Admin: 01/28/18 11:03 Dose: 300 mg Guaifenesin (Mucinex -) 600 mg PO BID [facility] Last Admin: 01/28/18 11:03 Dose: 600 mg Heparin Sodium (Porcine) (Heparin -) 5,000 unit SQ BID [facility] Last Admin: 01/28/18 11:02 Dose: 5,000 unit Ceftriaxone Sodium 1 gm/ (Dextrose) 50 mls @ 200 mls/hr IVPB DAILY [facility]; Protocol Last Admin: 01/28/18 11:02 Dose: 200 mls/hr Metoprolol Tartrate (Lopressor -) 25 mg PO BID [facility] Last Admin: 01/28/18 11:03 Dose: 25 mg Oxycodone HCl (Roxicodone -) 2.5 mg PO Q4H PRN PRN Reason: PAIN LEVEL 6-10 Last Admin: 01/28/18 14:42 Dose: 2.5 mg Tiotropium [place] (Spiriva Respimat) 2 puff IH DAILY [facility] Last Admin: 01/28/18 11:03 Dose: 2 puff Zolpidem Tartrate (Ambien -) 5 mg PO HS PRN PRN Reason: INSOMNIA Last Admin: 01/27/18 21:43 Dose: 5 mg - Objective Vital Signs: Vital Signs Temperature 36.8 C 01/28/18 14:25 Pulse Rate 98 H 01/28/18 14:25 Respiratory Rate 18 01/28/18 14:25 Blood Pressure 106/63 01/28/18 14:25 O2 Sat by Pulse Oximetry (%) 97 01/28/18 09:00 Constitutional: Yes: Well Nourished, No Distress, Calm Cardiovascular: Yes: Regular Rate and Rhythm. No: Gallop, Murmur, Rub Respiratory: Yes: Regular, On Nasal O2, Rhonchi. No: CTA Bilaterally, Rales, Wheezes Gastrointestinal: Yes: Normal Bowel Sounds, Soft. No: Distention, Tenderness Extremities: Yes: WNL Edema: No Labs: CBC, BMP 01/28/18 05:30 01/28/18 05:30 INR, PTT INR 1.22 (0.83-1.09) H 01/22/18 13:30 Problem List - Problems (1) Pneumonia Code(s): J18.9 - PNEUMONIA, UNSPECIFIED ORGANISM (2) Atrial fibrillation Code(s): I48.91 - UNSPECIFIED ATRIAL FIBRILLATION Qualifiers: Atrial fibrillation type: chronic Qualified Code(s): I48.2 - Chronic atrial fibrillation (3) COPD (chronic obstructive pulmonary disease) Code(s): J44.9 - CHRONIC OBSTRUCTIVE PULMONARY DISEASE, UNSPECIFIED (4) Liver metastases Code(s): C78.7 - SECONDARY MALIG NEOPLASM OF LIVER AND INTRAHEPATIC BILE DUCT (5) Chronic respiratory failure with hypoxia Code(s): J96.11 - CHRONIC RESPIRATORY FAILURE WITH HYPOXIA (6) Edema due to hypoalbuminemia Code(s): R60.9 - EDEMA, UNSPECIFIED; E88.09 - OTH DISORDERS OF PLASMA-PROTEIN METABOLISM, NEC Assessment/Plan (1) Pneumonia Assessment/Plan: -appreciate ID assistance -continue rocephin day 6 -continue mucinex and chest PT -defer transition to oral antibiotics to ID Code(s): J18.9 - PNEUMONIA, UNSPECIFIED ORGANISM (2) Atrial fibrillation Assessment/Plan: -rate controlled -continue metoprolol -plavix currently held, patient with anemia Code(s): I48.91 - UNSPECIFIED ATRIAL FIBRILLATION Qualifiers: Atrial fibrillation type: chronic Qualified Code(s): I48.2 - Chronic atrial fibrillation (3) Edema secondary to liver metastases Assessment/Plan: -change lasix to po -may need to change back to IV lasix if edema or effusions worsens -recorded eating 75% of meals -will add ensure to increase protein as well Code(s): (4) COPD (chronic obstructive pulmonary disease) Assessment/Plan: -appreciate pulmonary assistance, case d/w Dr Jolley -continue spiriva and duonebs -continue prn albuterol Code(s): J44.9 - CHRONIC OBSTRUCTIVE PULMONARY DISEASE, UNSPECIFIED (5) Liver metastases Assessment/Plan: -patient does not desire further work up -palliative care discussing options -DNR/DNI and MOLST form reviewed Code(s): C78.7 - SECONDARY MALIG NEOPLASM OF LIVER AND INTRAHEPATIC BILE DUCT (6) Chronic respiratory failure with hypoxia Assessment/Plan: -continue home oxygen Code(s): J96.11 - CHRONIC RESPIRATORY FAILURE WITH HYPOXIA (7) Neuropathy -patient with chronic neuropathy -however he says the pain is worse, says he feels like he is walking on rocks -continue gabapentin -since with metastatic cancer will trial low dose oxycodone as well for pain control
--- NOTE | 2018-01-28 15:52 | PN ---
Progress Note (short form) - Note Progress Note: has lost over 10 pounds still with cough- yellow sputum,no hemoptysis reports no improvement Vital Signs Period Temp Pulse Resp BP Sys/Lepe Pulse Ox Last 24 Hr 98 F-98.7 F 90-110 17-19 90-131/50-73 97-98 cor-rrr lungs still congested cough llungs otherwise clear abd firm, nt ext no edema CBC, BMP 01/28/18 05:30 01/28/18 05:30 Microbiology 01/22/18 13:47 Blood - Peripheral Venous Blood Culture - Final NO GROWTH AFTER 5 DAYS INCUBATION 01/22/18 13:45 Blood - Peripheral Venous Blood Culture - Final NO GROWTH AFTER 5 DAYS INCUBATION 01/24/18 13:15 Urine For Antigen Detection Legionella Antigen - Final 01/24/18 13:15 Urine For Antigen Detection Streptococcus pneumoniae Antigen (M - Final 01/23/18 06:30 Urine - Urine Clean Catch Urine Culture - Final NO GROWTH OBTAINED a/p pneumonia liver lesions most likly mets he has declined workup continue rocephin day #6, hopefully po augmentin soon d/w pulmonary and hospitalist, will start 48h low dose steroids repeat cxray- effusion RLL Problem List - Problems (1) Pneumonia Code(s): J18.9 - PNEUMONIA, UNSPECIFIED ORGANISM (2) Liver lesion Code(s): K76.9 - LIVER DISEASE, UNSPECIFIED (3) Colon cancer Code(s): C18.9 - MALIGNANT NEOPLASM OF COLON, UNSPECIFIED (4) Anemia Code(s): D64.9 - ANEMIA, UNSPECIFIED
[2018-01-28] MEDS: methylPREDNISolone NA SUCC 40 MG/1 ML VIAL IVPUSH SCH ×2 (16:58→21:04)
[2018-01-28] MEDS: ZOLPIDEM TARTRATE 5 MG TABLET PO PRN (21:03)
[2018-01-29] MEDS: ALBUTEROL SO4 0.083% IH SOL 2.5 MG/3 ML VIAL.NEB. NEB PRN (02:12)
[2018-01-29 06:44] LABS: BASO % 0.2 % (0-2.0); EOS % 0.1 % (0-4.5); HEMATOCRIT 26.2 % (35.4-49); HEMOGLOBIN 8.1 GM/dL (11.7-16.9); LYMPH % 7.3 % (8-40); MCH 31.8 pg (25.7-33.7); MCHC 30.8 g/dl (32.0-35.9); MEAN CELL VOLUME 103.1 fl (80-96); MEAN PLT VOLUME 8.3 fl (7.5-11.1); MONO % 2.1 % (3.8-10.2); NEUT % 90.3 % (42.8-82.8); PLATELET COUNT 228 K/MM3 (134-434); RBC 2.54 M/mm3 (4.00-5.60); RDW 16.2 % (11.9-15.9); WHITE BLOOD COUNT 4.5 K/mm3 (4.0-10.0)
[2018-01-29 07:07] LABS: ANION GAP 2 MMOL/L (8-16); BLOOD UREA NITROGEN 28 mg/dL (7-18); CALCIUM 9.9 mg/dL (8.5-10.1); CHLORIDE 99 mmol/L (98-107); CO2 34 mmol/L (21-32); CREATININE 0.9 mg/dL (0.55-1.3); GLUCOSE,RANDOM 140 mg/dL (74-106); MAGNESIUM 2.3 mg/dL (1.8-2.4); PHOSPHOROUS 3.6 mg/dL (2.5-4.9); SODIUM 135 mmol/L (136-145)
[2018-01-29] MEDS: ALBUTEROL SO4 2.5/IPRATROPIUM 0.5 INH SOL 3 ML VIAL.NEB. NEB SCH ×4 (07:33→20:36)
[2018-01-29] MEDS ORDERED: DEXTROSE 5%-WATER - 50 ML IVPB ONE (09:33)
[2018-01-29] MEDS ORDERED: cefTRIAXone SODIUM 1 GM VIAL ONE (09:33)
[2018-01-29] MEDS: CEFTRIAXONE 1 GM in DEXTROSE 5%-WATER - 50 ML IVPB SCH (09:45)
[2018-01-29] MEDS: ACETAMINOPHEN 325 MG TABLET (FP) PO PRN ×2 (09:45→20:30)
[2018-01-29] MEDS: METOPROLOL TARTRATE 25 MG TABLET (FP) PO SCH ×3 (09:46→21:45)
[2018-01-29] MEDS: guaiFENesin 600 MG TABLET.ER (FP) PO SCH ×3 (09:46→21:45)
[2018-01-29] MEDS: FUROSEMIDE 40 MG TABLET (FP) PO SCH (09:46)
[2018-01-29] MEDS: TIOTROPIUM BROMIDE 2.5 MCG (SPIRIVA) RESPIMAT INHALER IH SCH (09:46)
[2018-01-29] MEDS: methylPREDNISolone NA SUCC 40 MG/1 ML VIAL IVPUSH SCH ×3 (09:46→21:45)
[2018-01-29] MEDS: HEPARIN NA (PORCINE) 5,000 UNITS/ML 1ML VIAL SQ SCH ×3 (09:46→21:45)
[2018-01-29] MEDS: ALLOPURINOL 300 MG TABLET (FP) PO SCH (09:46)
[2018-01-29] MEDS: GABAPENTIN 300 MG CAPSULE (FP) PO SCH ×3 (09:46→21:45)
--- NOTE | 2018-01-29 11:28 | PN ---
Progress Note, Physician History of Present Illness: pulmonary alert,oob-chair,feeling better,less congested - Current Medication List Current Medications: Active Medications Acetaminophen (Tylenol -) 650 mg PO Q4H PRN PRN Reason: PAIN OR FEVER Last Admin: 01/29/18 09:45 Dose: 650 mg Albuterol Sulfate (Ventolin 0.083% Nebulizer Soln -) 1 amp NEB Q4H PRN PRN Reason: SHORT OF BREATH/WHEEZING Last Admin: 01/29/18 02:12 Dose: 1 amp Albuterol/Ipratropium (Duoneb -) 1 amp NEB RQID [facility] Last Admin: 01/29/18 11:03 Dose: 1 amp Allopurinol (Zyloprim -) 300 mg PO DAILY [facility] Last Admin: 01/29/18 09:46 Dose: 300 mg Furosemide (Lasix -) 40 mg PO DAILY [facility] Last Admin: 01/29/18 09:46 Dose: 40 mg Gabapentin (Neurontin -) 300 mg PO BID [facility] Last Admin: 01/29/18 09:46 Dose: 300 mg Guaifenesin (Mucinex -) 600 mg PO BID [facility] Last Admin: 01/29/18 09:46 Dose: 600 mg Heparin Sodium (Porcine) (Heparin -) 5,000 unit SQ BID [facility] Last Admin: 01/29/18 09:46 Dose: 5,000 unit Ceftriaxone Sodium 1 gm/ (Dextrose) 50 mls @ 200 mls/hr IVPB DAILY [facility]; Protocol Last Admin: 01/29/18 09:45 Dose: 200 mls/hr Methylprednisolone Sodium Succinate (Solu-Medrol -) 40 mg IVPUSH BID [facility] Last Admin: 01/29/18 09:46 Dose: 40 mg Metoprolol Tartrate (Lopressor -) 25 mg PO BID [facility] Last Admin: 01/29/18 09:46 Dose: 25 mg Oxycodone HCl (Roxicodone -) 2.5 mg PO Q4H PRN PRN Reason: PAIN LEVEL 6-10 Last Admin: 01/28/18 14:42 Dose: 2.5 mg Tiotropium [place] (Spiriva Respimat) 2 puff IH DAILY [facility] Last Admin: 01/29/18 09:46 Dose: 2 puff Zolpidem Tartrate (Ambien -) 5 mg PO HS PRN PRN Reason: INSOMNIA Last Admin: 01/28/18 21:03 Dose: 5 mg - Objective Vital Signs: Vital Signs Temperature 98.0 F 01/29/18 10:00 Pulse Rate 102 H 01/29/18 10:00 Respiratory Rate 20 01/29/18 10:00 Blood Pressure 109/57 L 01/29/18 10:00 O2 Sat by Pulse Oximetry (%) 97 01/29/18 09:00 Constitutional: Yes: Well Nourished, Calm Eyes: Yes: WNL HENT: Yes: WNL Neck: Yes: WNL Cardiovascular: Yes: Pulse Irregular, S1, S2 Respiratory: Yes: Rhonchi (few rhonchi) Gastrointestinal: Yes: Normal Bowel Sounds, Soft Extremities: Yes: WNL Edema: No Labs: CBC, BMP 01/29/18 05:30 01/29/18 05:30 INR, PTT INR 1.22 (0.83-1.09) H 01/22/18 13:30 Assessment/Plan Problem List - Problems (1) CHF (congestive heart failure) Code(s): I50.9 - HEART FAILURE, UNSPECIFIED (2) COPD (chronic obstructive pulmonary disease) Code(s): J44.9 - CHRONIC OBSTRUCTIVE PULMONARY DISEASE, UNSPECIFIED (3) Colon cancer Code(s): C18.9 - MALIGNANT NEOPLASM OF COLON, UNSPECIFIED (4) Colostomy hernia Code(s): K94.09 - OTHER COMPLICATIONS OF COLOSTOMY (5) Liver metastases Code(s): C78.7 - SECONDARY MALIG NEOPLASM OF LIVER AND INTRAHEPATIC BILE DUCT (6) Weight loss Code(s): R63.4 - ABNORMAL WEIGHT LOSS Assessment/Plan H/O COLON CA LLL PNEUMONIA COPD O2 DEPENDENT AFIB INHALED BRONCHODILATORS CONTINUE O2 NASAL CONTINUE ANTIBIOTICS CHEST PT CONTINUE HARINDER CLAIRE
--- NOTE | 2018-01-29 12:25 | PN ---
Progress Note, Physician Chief Complaint: Mr Ernandez says he is feeling better today. Says the pain in his legs are better controlled. No cp, sob, n/v. Coughing present but significantly decreased. - Current Medication List Current Medications: Active Medications Acetaminophen (Tylenol -) 650 mg PO Q4H PRN PRN Reason: PAIN OR FEVER Last Admin: 01/29/18 09:45 Dose: 650 mg Albuterol Sulfate (Ventolin 0.083% Nebulizer Soln -) 1 amp NEB Q4H PRN PRN Reason: SHORT OF BREATH/WHEEZING Last Admin: 01/29/18 02:12 Dose: 1 amp Albuterol/Ipratropium (Duoneb -) 1 amp NEB RQID [facility] Last Admin: 01/29/18 11:03 Dose: 1 amp Allopurinol (Zyloprim -) 300 mg PO DAILY [facility] Last Admin: 01/29/18 09:46 Dose: 300 mg Furosemide (Lasix -) 40 mg PO DAILY [facility] Last Admin: 01/29/18 09:46 Dose: 40 mg Gabapentin (Neurontin -) 300 mg PO BID [facility] Last Admin: 01/29/18 09:46 Dose: 300 mg Guaifenesin (Mucinex -) 600 mg PO BID [facility] Last Admin: 01/29/18 09:46 Dose: 600 mg Heparin Sodium (Porcine) (Heparin -) 5,000 unit SQ BID [facility] Last Admin: 01/29/18 09:46 Dose: 5,000 unit Ceftriaxone Sodium 1 gm/ (Dextrose) 50 mls @ 200 mls/hr IVPB DAILY [facility]; Protocol Last Admin: 01/29/18 09:45 Dose: 200 mls/hr Methylprednisolone Sodium Succinate (Solu-Medrol -) 40 mg IVPUSH BID [facility] Last Admin: 01/29/18 09:46 Dose: 40 mg Metoprolol Tartrate (Lopressor -) 25 mg PO BID [facility] Last Admin: 01/29/18 09:46 Dose: 25 mg Oxycodone HCl (Roxicodone -) 2.5 mg PO Q4H PRN PRN Reason: PAIN LEVEL 6-10 Last Admin: 01/28/18 14:42 Dose: 2.5 mg Tiotropium [place] (Spiriva Respimat) 2 puff IH DAILY [facility] Last Admin: 01/29/18 09:46 Dose: 2 puff Zolpidem Tartrate (Ambien -) 5 mg PO HS PRN PRN Reason: INSOMNIA Last Admin: 01/28/18 21:03 Dose: 5 mg - Objective Vital Signs: Vital Signs Temperature 36.7 C 01/29/18 10:00 Pulse Rate 102 H 01/29/18 10:00 Respiratory Rate 20 01/29/18 10:00 Blood Pressure 109/57 L 01/29/18 10:00 O2 Sat by Pulse Oximetry (%) 97 01/29/18 09:00 Constitutional: Yes: Well Nourished, No Distress, Calm Cardiovascular: Yes: Regular Rate and Rhythm. No: Gallop, Murmur, Rub Respiratory: Yes: Regular, CTA Bilaterally, Cough. No: Rales, Rhonchi, Wheezes Gastrointestinal: Yes: Normal Bowel Sounds, Soft. No: Distention, Tenderness Extremities: Yes: WNL Edema: Yes Edema: LLE: 1+, RLE: 1+ Labs: CBC, BMP 01/29/18 05:30 01/29/18 05:30 INR, PTT INR 1.22 (0.83-1.09) H 01/22/18 13:30 Problem List - Problems (1) Pneumonia Code(s): J18.9 - PNEUMONIA, UNSPECIFIED ORGANISM (2) Atrial fibrillation Code(s): I48.91 - UNSPECIFIED ATRIAL FIBRILLATION Qualifiers: Atrial fibrillation type: chronic Qualified Code(s): I48.2 - Chronic atrial fibrillation (3) COPD (chronic obstructive pulmonary disease) Code(s): J44.9 - CHRONIC OBSTRUCTIVE PULMONARY DISEASE, UNSPECIFIED (4) Liver metastases Code(s): C78.7 - SECONDARY MALIG NEOPLASM OF LIVER AND INTRAHEPATIC BILE DUCT (5) Chronic respiratory failure with hypoxia Code(s): J96.11 - CHRONIC RESPIRATORY FAILURE WITH HYPOXIA (6) Edema due to hypoalbuminemia Code(s): R60.9 - EDEMA, UNSPECIFIED; E88.09 - OTH DISORDERS OF PLASMA-PROTEIN METABOLISM, NEC Assessment/Plan (1) Pneumonia Assessment/Plan -case d/w Dr Gu -continue rocephin day 7, plan to stop in next 24-48 hours Code(s): J18.9 - PNEUMONIA, UNSPECIFIED ORGANISM (2) Atrial fibrillation Assessment/Plan: -rate controlled -continue metoprolol -plavix currently held, patient with anemia Code(s): I48.91 - UNSPECIFIED ATRIAL FIBRILLATION Qualifiers: Atrial fibrillation type: chronic Qualified Code(s): I48.2 - Chronic atrial fibrillation (3) Edema secondary to liver metastases Assessment/Plan: -improved today -continue oral lasix -continue mealtime supplement to improve protein Code(s): (4) COPD (chronic obstructive pulmonary disease) Assessment/Plan: -appreciate pulmonary assistance, case d/w Dr Jolley -continue spiriva and duonebs -continue prn albuterol -short course of IV steroids Code(s): J44.9 - CHRONIC OBSTRUCTIVE PULMONARY DISEASE, UNSPECIFIED (5) Liver metastases Assessment/Plan: -patient does not desire further work up -palliative care discussing options -DNR/DNI and MOLST form reviewed Code(s): C78.7 - SECONDARY MALIG NEOPLASM OF LIVER AND INTRAHEPATIC BILE DUCT (6) Chronic respiratory failure with hypoxia Assessment/Plan: -continue home oxygen Code(s): J96.11 - CHRONIC RESPIRATORY FAILURE WITH HYPOXIA (7) Neuropathy -improved control with low dose oxycodone Dispo -possible discharge to SNF this weekend pending IV antibiotics
[2018-01-29] MEDS ORDERED: PT OWN MED DRAWER 7, Y5N ONE (14:45)
--- NOTE | 2018-01-29 15:12 | PN ---
Progress Note (short form) - Note Progress Note: has lost over 10 pounds still with cough- yellow sputum,no hemoptysis some improvement with steroids Vital Signs Period Temp Pulse Resp BP Sys/Lepe Pulse Ox Last 24 Hr 97.7 F-98.7 F 89-105 18-20 103-111/51-68 96-97 oob in chair cor-rrr lungs clear abd soft,firm liver ext no edema CBC, BMP 01/29/18 05:30 01/29/18 05:30 a/p pneumonia-opersistent cough liver lesions most likly mets he has declined workup continue rocephin day #7, hopefully d/c antiibotics next 24-48 hours short course of steroids day #1 repeat cxray- effusion RLL/atelectasis RLL Problem List - Problems (1) Pneumonia Code(s): J18.9 - PNEUMONIA, UNSPECIFIED ORGANISM (2) Liver lesion Code(s): K76.9 - LIVER DISEASE, UNSPECIFIED (3) Colon cancer Code(s): C18.9 - MALIGNANT NEOPLASM OF COLON, UNSPECIFIED (4) Anemia Code(s): D64.9 - ANEMIA, UNSPECIFIED
[2018-01-29] MEDS: ZOLPIDEM TARTRATE 5 MG TABLET PO PRN (20:30)
[2018-01-30] MEDS: ALBUTEROL SO4 0.083% IH SOL 2.5 MG/3 ML VIAL.NEB. NEB PRN (02:28)
[2018-01-30 07:03] LABS: BASO % 0.1 % (0-2.0); HEMATOCRIT 27.3 % (35.4-49); HEMOGLOBIN 8.5 GM/dL (11.7-16.9); LYMPH % 5.2 % (8-40); MCH 31.8 pg (25.7-33.7); MEAN CELL VOLUME 102.5 fl (80-96); MEAN PLT VOLUME 8.5 fl (7.5-11.1); NEUT % 89.7 % (42.8-82.8); PLATELET COUNT 272 K/MM3 (134-434); RBC 2.67 M/mm3 (4.00-5.60); RDW 15.9 % (11.9-15.9); WHITE BLOOD COUNT 7.6 K/mm3 (4.0-10.0)
[2018-01-30] MEDS: ALBUTEROL SO4 2.5/IPRATROPIUM 0.5 INH SOL 3 ML VIAL.NEB. NEB SCH ×4 (07:50→20:41)
[2018-01-30 08:47] LABS: ANION GAP 8 MMOL/L (8-16); BLOOD UREA NITROGEN 35 mg/dL (7-18); CALCIUM 10.5 mg/dL (8.5-10.1); CHLORIDE 96 mmol/L (98-107); CO2 37 mmol/L (21-32); CREATININE 0.9 mg/dL (0.55-1.3); GLUCOSE,RANDOM 124 mg/dL (74-106); MAGNESIUM 2.3 mg/dL (1.8-2.4); PHOSPHOROUS 3.1 mg/dL (2.5-4.9); SODIUM 140 mmol/L (136-145)
[2018-01-30] MEDS ORDERED: cefTRIAXone SODIUM 1 GM VIAL ONE (08:58)
[2018-01-30] MEDS ORDERED: DEXTROSE 5%-WATER - 50 ML IVPB ONE (08:58)
[2018-01-30] MEDS ORDERED: PT OWN MED DRAWER 7, Y5N ONE ×2 (08:58→09:58)
[2018-01-30] MEDS: CEFTRIAXONE 1 GM in DEXTROSE 5%-WATER - 50 ML IVPB SCH (09:22)
[2018-01-30] MEDS: methylPREDNISolone NA SUCC 40 MG/1 ML VIAL IVPUSH SCH ×2 (09:23→21:02)
[2018-01-30] MEDS: HEPARIN NA (PORCINE) 5,000 UNITS/ML 1ML VIAL SQ SCH ×2 (09:23→21:02)
[2018-01-30] MEDS: guaiFENesin 600 MG TABLET.ER (FP) PO SCH ×2 (09:23→21:02)
[2018-01-30] MEDS: METOPROLOL TARTRATE 25 MG TABLET (FP) PO SCH ×2 (09:23→21:02)
[2018-01-30] MEDS: GABAPENTIN 300 MG CAPSULE (FP) PO SCH ×2 (09:23→21:02)
[2018-01-30] MEDS: FUROSEMIDE 40 MG TABLET (FP) PO SCH (09:24)
[2018-01-30] MEDS: ALLOPURINOL 300 MG TABLET (FP) PO SCH (09:24)
[2018-01-30] MEDS: ACETAMINOPHEN 325 MG TABLET (FP) PO PRN ×2 (09:56→16:19)
--- NOTE | 2018-01-30 12:58 | PN ---
Progress Note, Physician Chief Complaint: Less SOB still c/o LE edema - Current Medication List Current Medications: Active Medications Acetaminophen (Tylenol -) 650 mg PO Q4H PRN PRN Reason: PAIN OR FEVER Last Admin: 01/30/18 09:56 Dose: 650 mg Albuterol Sulfate (Ventolin 0.083% Nebulizer Soln -) 1 amp NEB Q4H PRN PRN Reason: SHORT OF BREATH/WHEEZING Last Admin: 01/30/18 02:28 Dose: 1 amp Albuterol/Ipratropium (Duoneb -) 1 amp NEB RQID [facility] Last Admin: 01/30/18 07:50 Dose: 1 amp Allopurinol (Zyloprim -) 300 mg PO DAILY [facility] Last Admin: 01/30/18 09:24 Dose: 300 mg Furosemide (Lasix -) 40 mg PO DAILY [facility] Last Admin: 01/30/18 09:24 Dose: 40 mg Gabapentin (Neurontin -) 300 mg PO BID [facility] Last Admin: 01/30/18 09:23 Dose: 300 mg Guaifenesin (Mucinex -) 600 mg PO BID [facility] Last Admin: 01/30/18 09:23 Dose: 600 mg Heparin Sodium (Porcine) (Heparin -) 5,000 unit SQ BID [facility] Last Admin: 01/30/18 09:23 Dose: 5,000 unit Ceftriaxone Sodium 1 gm/ (Dextrose) 50 mls @ 200 mls/hr IVPB DAILY [facility]; Protocol Last Admin: 01/30/18 09:22 Dose: 200 mls/hr Methylprednisolone Sodium Succinate (Solu-Medrol -) 40 mg IVPUSH BID [facility] Last Admin: 01/30/18 09:23 Dose: 40 mg Metoprolol Tartrate (Lopressor -) 25 mg PO BID [facility] Last Admin: 01/30/18 09:23 Dose: 25 mg Oxycodone HCl (Roxicodone -) 2.5 mg PO Q4H PRN PRN Reason: PAIN LEVEL 6-10 Last Admin: 01/28/18 14:42 Dose: 2.5 mg Tiotropium [place] (Spiriva Respimat) 2 puff IH DAILY [facility] Last Admin: 01/29/18 09:46 Dose: 2 puff Zolpidem Tartrate (Ambien -) 5 mg PO HS PRN PRN Reason: INSOMNIA Last Admin: 01/29/18 20:30 Dose: 5 mg - Objective Vital Signs: Vital Signs Temperature 97.5 F L 01/30/18 10:00 Pulse Rate 102 H 01/30/18 10:00 Respiratory Rate 20 01/30/18 10:00 Blood Pressure 128/67 01/30/18 10:00 O2 Sat by Pulse Oximetry (%) 100 01/30/18 08:09 Constitutional: Yes: Well Nourished, No Distress, Calm Cardiovascular: Yes: WNL, Regular Rate and Rhythm. No: Murmur, Rub Respiratory: Yes: Regular, Cough, On Nasal O2, Rhonchi, SOB, Wheezes (scattered) . No: Accessory Muscle Use, Tachypnea Gastrointestinal: Yes: WNL, Normal Bowel Sounds, Soft, Abdomen, Obese. No: Distention, Tenderness Genitourinary: Yes: WNL Edema: No Neurological: Yes: WNL, Alert, Oriented Psychiatric: Yes: WNL, Alert, Oriented Labs: CBC, BMP 01/30/18 05:30 01/30/18 05:30 INR, PTT INR 1.22 (0.83-1.09) H 01/22/18 13:30 Problem List - Problems (1) Pneumonia Assessment/Plan: On Ceftriaxone TWBC normal afebrile Code(s): J18.9 - PNEUMONIA, UNSPECIFIED ORGANISM (2) COPD (chronic obstructive pulmonary disease) Assessment/Plan: Cont Current Nebs and Po Prednisone O2 inhalation Code(s): J44.9 - CHRONIC OBSTRUCTIVE PULMONARY DISEASE, UNSPECIFIED (3) Chronic respiratory failure with hypoxia Assessment/Plan: On O2 inhalation saturating well cont IV abx bronchodilators and PO Prednisone Code(s): J96.11 - CHRONIC RESPIRATORY FAILURE WITH HYPOXIA (4) Edema due to hypoalbuminemia Assessment/Plan: Secopndary liver metastasis Code(s): R60.9 - EDEMA, UNSPECIFIED; E88.09 - OTH DISORDERS OF PLASMA-PROTEIN METABOLISM, NEC (5) Liver metastases Assessment/Plan: DNR DNI will F/U Oncology and Gi recommondations Code(s): C78.7 - SECONDARY MALIG NEOPLASM OF LIVER AND INTRAHEPATIC BILE DUCT (6) Atrial fibrillation Assessment/Plan: Rtae controlled no active issue Code(s): I48.91 - UNSPECIFIED ATRIAL FIBRILLATION Qualifiers: Atrial fibrillation type: chronic Qualified Code(s): I48.2 - Chronic atrial fibrillation
[2018-01-30] MEDS: TIOTROPIUM BROMIDE 2.5 MCG (SPIRIVA) RESPIMAT INHALER IH SCH (13:17)
--- NOTE | 2018-01-30 14:40 | PN ---
Progress Note (short form) - Note Progress Note: Breathing seems to be improving. No CP. No acute events overnight. Intake & Output 01/27/18 01/28/18 01/29/18 01/30/18 23:59 23:59 23:59 23:59 Intake Total 360 1030 1250 70 Output Total 600 700 450 Balance -240 330 800 70 Weight 158 lb 4 oz 156 lb 12.8 oz 157 lb 12.8 oz 157 lb Last Vital Signs Temp Pulse Resp BP Pulse Ox 97.5 F L 102 H 20 128/67 100 01/30/18 10:00 01/30/18 10:00 01/30/18 10:00 01/30/18 10:00 01/30/18 08:09 Active Medications Acetaminophen (Tylenol -) 650 mg PO Q4H PRN PRN Reason: PAIN OR FEVER Last Admin: 01/30/18 09:56 Dose: 650 mg Albuterol Sulfate (Ventolin 0.083% Nebulizer Soln -) 1 amp NEB Q4H PRN PRN Reason: SHORT OF BREATH/WHEEZING Last Admin: 01/30/18 02:28 Dose: 1 amp Albuterol/Ipratropium (Duoneb -) 1 amp NEB RQID [facility] Last Admin: 01/30/18 07:50 Dose: 1 amp Allopurinol (Zyloprim -) 300 mg PO DAILY [facility] Last Admin: 01/30/18 09:24 Dose: 300 mg Furosemide (Lasix -) 40 mg PO DAILY [facility] Last Admin: 01/30/18 09:24 Dose: 40 mg Gabapentin (Neurontin -) 300 mg PO BID [facility] Last Admin: 01/30/18 09:23 Dose: 300 mg Guaifenesin (Mucinex -) 600 mg PO BID [facility] Last Admin: 01/30/18 09:23 Dose: 600 mg Heparin Sodium (Porcine) (Heparin -) 5,000 unit SQ BID [facility] Last Admin: 01/30/18 09:23 Dose: 5,000 unit Ceftriaxone Sodium 1 gm/ (Dextrose) 50 mls @ 200 mls/hr IVPB DAILY [facility]; Protocol Last Admin: 01/30/18 09:22 Dose: 200 mls/hr Methylprednisolone Sodium Succinate (Solu-Medrol -) 40 mg IVPUSH BID [facility] Last Admin: 01/30/18 09:23 Dose: 40 mg Metoprolol Tartrate (Lopressor -) 25 mg PO BID [facility] Last Admin: 01/30/18 09:23 Dose: 25 mg Oxycodone HCl (Roxicodone -) 2.5 mg PO Q4H PRN PRN Reason: PAIN LEVEL 6-10 Last Admin: 01/28/18 14:42 Dose: 2.5 mg Tiotropium [place] (Spiriva Respimat) 2 puff IH DAILY [facility] Last Admin: 01/30/18 13:17 Dose: 2 puff Zolpidem Tartrate (Ambien -) 5 mg PO HS PRN PRN Reason: INSOMNIA Last Admin: 01/29/18 20:30 Dose: 5 mg Constitutional: Yes: NAD Eyes: Yes: WNL HENT: Yes: WNL Neck: Yes: WNL Cardiovascular: Yes: Pulse Irregular, S1, S2 Respiratory: Yes: Few rhonchi Gastrointestinal: Yes: Normal Bowel Sounds, Soft Extremities: Yes: WNL Edema: No Labs: Laboratory Results - last 24 hr 01/30/18 01/30/18 05:30 05:30 WBC 7.6 RBC 2.67 L Hgb 8.5 L Hct 27.3 L MCV 102.5 H MCH 31.8 MCHC 31.0 L RDW 15.9 Plt Count 272 MPV 8.5 Absolute Neuts (auto) 6.8 Neutrophils % 89.7 H Lymphocytes % 5.2 L D Monocytes % 5.0 D Eosinophils % 0.0 D Basophils % 0.1 Nucleated RBC % 0 Sodium 140 Potassium 5.0 Chloride 96 L Carbon Dioxide 37 H Anion Gap 8 BUN 35 H Creatinine 0.9 Creat Clearance w eGFR > 60 Random Glucose 124 H Calcium 10.5 H Phosphorus 3.1 Magnesium 2.3 Assessment/Plan Problem List - Problems (1) CHF (congestive heart failure) Code(s): I50.9 - HEART FAILURE, UNSPECIFIED (2) COPD (chronic obstructive pulmonary disease) Code(s): J44.9 - CHRONIC OBSTRUCTIVE PULMONARY DISEASE, UNSPECIFIED (3) Colon cancer Code(s): C18.9 - MALIGNANT NEOPLASM OF COLON, UNSPECIFIED (4) Colostomy hernia Code(s): K94.09 - OTHER COMPLICATIONS OF COLOSTOMY (5) Liver metastases Code(s): C78.7 - SECONDARY MALIG NEOPLASM OF LIVER AND INTRAHEPATIC BILE DUCT (6) Weight loss Code(s): R63.4 - ABNORMAL WEIGHT LOSS Assessment/Plan H/O COLON CA LLL PNEUMONIA COPD O2 DEPENDENT AFIB INHALED BRONCHODILATORS NC O2 ABX CHEST PT MEDROL Dr Cook
[2018-01-31] MEDS: ALBUTEROL SO4 2.5/IPRATROPIUM 0.5 INH SOL 3 ML VIAL.NEB. NEB SCH ×4 (07:00→21:59)
[2018-01-31 07:22] LABS: BASO % 0.1 % (0-2.0); HEMATOCRIT 26.9 % (35.4-49); HEMOGLOBIN 8.4 GM/dL (11.7-16.9); LYMPH % 5.8 % (8-40); MCH 31.8 pg (25.7-33.7); MEAN CELL VOLUME 102.5 fl (80-96); MEAN PLT VOLUME 8.4 fl (7.5-11.1); MONO % 3.7 % (3.8-10.2); NEUT % 90.4 % (42.8-82.8); PLATELET COUNT 290 K/MM3 (134-434); RBC 2.63 M/mm3 (4.00-5.60); WHITE BLOOD COUNT 7.9 K/mm3 (4.0-10.0)
[2018-01-31 08:04] LABS: ANION GAP 4 MMOL/L (8-16); BLOOD UREA NITROGEN 39 mg/dL (7-18); CALCIUM 9.9 mg/dL (8.5-10.1); CHLORIDE 98 mmol/L (98-107); CO2 36 mmol/L (21-32); CREATININE 0.9 mg/dL (0.55-1.3); GLUCOSE,RANDOM 123 mg/dL (74-106); POTASSIUM 4.9 mmol/L (3.5-5.1); SODIUM 137 mmol/L (136-145)
[2018-01-31] MEDS: ALBUTEROL SO4 0.083% IH SOL 2.5 MG/3 ML VIAL.NEB. NEB PRN (08:40)
[2018-01-31] MEDS ORDERED: PT OWN MED DRAWER 7, Y5N ONE ×3 (09:14→09:19)
[2018-01-31] MEDS ORDERED: DEXTROSE 5%-WATER - 50 ML IVPB ONE (09:14)
[2018-01-31] MEDS ORDERED: cefTRIAXone SODIUM 1 GM VIAL ONE (09:14)
[2018-01-31] MEDS: HEPARIN NA (PORCINE) 5,000 UNITS/ML 1ML VIAL SQ SCH ×2 (09:51→21:03)
[2018-01-31] MEDS: guaiFENesin 600 MG TABLET.ER (FP) PO SCH ×2 (09:52→21:03)
[2018-01-31] MEDS: ACETAMINOPHEN 325 MG TABLET (FP) PO PRN ×2 (09:52→21:04)
[2018-01-31] MEDS: GABAPENTIN 300 MG CAPSULE (FP) PO SCH ×2 (09:52→21:03)
[2018-01-31] MEDS: methylPREDNISolone NA SUCC 40 MG/1 ML VIAL IVPUSH SCH ×2 (09:52→21:03)
[2018-01-31] MEDS: FUROSEMIDE 40 MG TABLET (FP) PO SCH (09:52)
[2018-01-31] MEDS: METOPROLOL TARTRATE 25 MG TABLET (FP) PO SCH ×2 (09:52→21:03)
[2018-01-31] MEDS: TIOTROPIUM BROMIDE 2.5 MCG (SPIRIVA) RESPIMAT INHALER IH SCH (09:52)
[2018-01-31] MEDS: ALLOPURINOL 300 MG TABLET (FP) PO SCH (09:52)
[2018-01-31] MEDS: CEFTRIAXONE 1 GM in DEXTROSE 5%-WATER - 50 ML IVPB SCH (09:53)
--- NOTE | 2018-01-31 10:50 | PN ---
Progress Note, Physician Chief Complaint: Less SOB still c/o LE edema - Current Medication List Current Medications: Active Medications Acetaminophen (Tylenol -) 650 mg PO Q4H PRN PRN Reason: PAIN OR FEVER Last Admin: 01/31/18 09:52 Dose: 650 mg Albuterol Sulfate (Ventolin 0.083% Nebulizer Soln -) 1 amp NEB Q4H PRN PRN Reason: SHORT OF BREATH/WHEEZING Last Admin: 01/31/18 08:40 Dose: 1 amp Albuterol/Ipratropium (Duoneb -) 1 amp NEB RQID [facility] Last Admin: 01/31/18 07:00 Dose: 1 amp Allopurinol (Zyloprim -) 300 mg PO DAILY [facility] Last Admin: 01/31/18 09:52 Dose: 300 mg Furosemide (Lasix -) 40 mg PO DAILY [facility] Last Admin: 01/31/18 09:52 Dose: 40 mg Gabapentin (Neurontin -) 300 mg PO BID [facility] Last Admin: 01/31/18 09:52 Dose: 300 mg Guaifenesin (Mucinex -) 600 mg PO BID [facility] Last Admin: 01/31/18 09:52 Dose: 600 mg Heparin Sodium (Porcine) (Heparin -) 5,000 unit SQ BID [facility] Last Admin: 01/31/18 09:51 Dose: 5,000 unit Ceftriaxone Sodium 1 gm/ (Dextrose) 50 mls @ 200 mls/hr IVPB DAILY [facility]; Protocol Last Admin: 01/31/18 09:53 Dose: 200 mls/hr Methylprednisolone Sodium Succinate (Solu-Medrol -) 40 mg IVPUSH BID [facility] Last Admin: 01/31/18 09:52 Dose: 40 mg Metoprolol Tartrate (Lopressor -) 25 mg PO BID [facility] Last Admin: 01/31/18 09:52 Dose: 25 mg Oxycodone HCl (Roxicodone -) 2.5 mg PO Q4H PRN PRN Reason: PAIN LEVEL 6-10 Last Admin: 01/28/18 14:42 Dose: 2.5 mg Tiotropium [place] (Spiriva Respimat) 2 puff IH DAILY [facility] Last Admin: 01/31/18 09:52 Dose: 2 puff - Objective Vital Signs: Vital Signs Temperature 9832 F H 01/31/18 06:00 Pulse Rate 102 H 01/31/18 09:03 Respiratory Rate 20 10/14/18 09:03 Blood Pressure 121/63 01/31/18 09:03 O2 Sat by Pulse Oximetry (%) 100 01/31/18 07:55 Constitutional: Well Nourished, No Distress, Calm Cardiovascular: Regular Rate and Rhythm. No: Murmur, Rub Respiratory: Regular, Cough, On Nasal O2, Rhonchi, SOB, Wheezes (scattered). No : Accessory Muscle Use, Tachypnea Gastrointestinal: Yes: WNL, Normal Bowel Sounds, Soft, Abdomen, Obese. No: Distention, Tenderness, colostomy at place. EXT: Resolving trace Neurological: AOX 3 WNL, Alert, Oriented Labs: CBC, BMP 01/31/18 05:17 01/31/18 05:17 INR, PTT INR 1.22 (0.83-1.09) H 01/22/18 13:30 Problem List - Problems (1) Pneumonia Assessment/Plan: On Ceftriaxone TWBC normal afebrile Code(s): J18.9 - PNEUMONIA, UNSPECIFIED ORGANISM (2) COPD (chronic obstructive pulmonary disease) Assessment/Plan: Cont Current Nebs and Po Prednisone O2 inhalation Code(s): J44.9 - CHRONIC OBSTRUCTIVE PULMONARY DISEASE, UNSPECIFIED (3) Chronic respiratory failure with hypoxia Assessment/Plan: On O2 inhalation saturating well cont IV abx bronchodilators and PO Prednisone Code(s): J96.11 - CHRONIC RESPIRATORY FAILURE WITH HYPOXIA (4) Edema due to hypoalbuminemia Assessment/Plan: Secopndary liver metastasis Code(s): R60.9 - EDEMA, UNSPECIFIED; E88.09 - OTH DISORDERS OF PLASMA-PROTEIN METABOLISM, NEC (5) Liver metastases Assessment/Plan: DNR DNI will F/U Oncology and Gi recommondations Code(s): C78.7 - SECONDARY MALIG NEOPLASM OF LIVER AND INTRAHEPATIC BILE DUCT (6) Atrial fibrillation Assessment/Plan: Rtae controlled no active issue Code(s): I48.91 - UNSPECIFIED ATRIAL FIBRILLATION Qualifiers: Atrial fibrillation type: chronic Qualified Code(s): I48.2 - Chronic atrial fibrillation
--- NOTE | 2018-01-31 13:03 | PN ---
Progress Note (short form) - Note Progress Note: No significant change in breathing today. Still with ANDREWS and intermittent cough. No CP. No acute events overnight. Intake & Output 01/28/18 01/29/18 01/30/18 01/31/18 23:59 23:59 23:59 23:59 Intake Total 1030 1250 430 10 Output Total 700 450 300 700 Balance 330 800 130 -690 Weight 156 lb 12.8 oz 157 lb 12.8 oz 157 lb 156 lb 12.8 oz Last Vital Signs Temp Pulse Resp BP Pulse Ox 9832 F H 102 H 20 121/63 100 01/31/18 06:00 01/31/18 09:03 01/31/18 09:03 01/31/18 09:03 01/31/18 07:55 Active Medications Acetaminophen (Tylenol -) 650 mg PO Q4H PRN PRN Reason: PAIN OR FEVER Last Admin: 01/31/18 09:52 Dose: 650 mg Albuterol Sulfate (Ventolin 0.083% Nebulizer Soln -) 1 amp NEB Q4H PRN PRN Reason: SHORT OF BREATH/WHEEZING Last Admin: 01/31/18 08:40 Dose: 1 amp Albuterol/Ipratropium (Duoneb -) 1 amp NEB RQID [facility] Last Admin: 01/31/18 11:40 Dose: 1 amp Allopurinol (Zyloprim -) 300 mg PO DAILY [facility] Last Admin: 01/31/18 09:52 Dose: 300 mg Furosemide (Lasix -) 40 mg PO DAILY [facility] Last Admin: 01/31/18 09:52 Dose: 40 mg Gabapentin (Neurontin -) 300 mg PO BID [facility] Last Admin: 01/31/18 09:52 Dose: 300 mg Guaifenesin (Mucinex -) 600 mg PO BID [facility] Last Admin: 01/31/18 09:52 Dose: 600 mg Heparin Sodium (Porcine) (Heparin -) 5,000 unit SQ BID [facility] Last Admin: 01/31/18 09:51 Dose: 5,000 unit Ceftriaxone Sodium 1 gm/ (Dextrose) 50 mls @ 200 mls/hr IVPB DAILY [facility]; Protocol Last Admin: 01/31/18 09:53 Dose: 200 mls/hr Methylprednisolone Sodium Succinate (Solu-Medrol -) 40 mg IVPUSH BID [facility] Last Admin: 01/31/18 09:52 Dose: 40 mg Metoprolol Tartrate (Lopressor -) 25 mg PO BID [facility] Last Admin: 01/31/18 09:52 Dose: 25 mg Oxycodone HCl (Roxicodone -) 2.5 mg PO Q4H PRN PRN Reason: PAIN LEVEL 6-10 Last Admin: 01/28/18 14:42 Dose: 2.5 mg Tiotropium [place] (Spiriva Respimat) 2 puff IH DAILY [facility] Last Admin: 01/31/18 09:52 Dose: 2 puff Constitutional: Yes: NAD Eyes: Yes: WNL HENT: Yes: WNL Neck: Yes: WNL Cardiovascular: Yes: Pulse Irregular, S1, S2 Respiratory: Yes: Scattered bilateral rhonchi, no wheeze Gastrointestinal: Yes: Normal Bowel Sounds, Soft Extremities: Yes: WNL Edema: No Labs: Laboratory Results - last 24 hr 01/31/18 01/31/18 05:17 05:17 WBC 7.9 RBC 2.63 L Hgb 8.4 L Hct 26.9 L MCV 102.5 H MCH 31.8 MCHC 31.0 L RDW 16.0 H Plt Count 290 MPV 8.4 Absolute Neuts (auto) 7.1 Neutrophils % 90.4 H Lymphocytes % 5.8 L Monocytes % 3.7 L Eosinophils % 0.0 Basophils % 0.1 Nucleated RBC % 0 Sodium 137 Potassium 4.9 Chloride 98 Carbon Dioxide 36 H Anion Gap 4 L BUN 39 H Creatinine 0.9 Creat Clearance w eGFR > 60 Random Glucose 123 H Calcium 9.9 Assessment/Plan Problem List - Problems (1) CHF (congestive heart failure) Code(s): I50.9 - HEART FAILURE, UNSPECIFIED (2) COPD (chronic obstructive pulmonary disease) Code(s): J44.9 - CHRONIC OBSTRUCTIVE PULMONARY DISEASE, UNSPECIFIED (3) Colon cancer Code(s): C18.9 - MALIGNANT NEOPLASM OF COLON, UNSPECIFIED (4) Colostomy hernia Code(s): K94.09 - OTHER COMPLICATIONS OF COLOSTOMY (5) Liver metastases Code(s): C78.7 - SECONDARY MALIG NEOPLASM OF LIVER AND INTRAHEPATIC BILE DUCT (6) Weight loss Code(s): R63.4 - ABNORMAL WEIGHT LOSS Assessment/Plan H/O COLON CA LLL PNEUMONIA COPD O2 DEPENDENT AFIB INHALED BRONCHODILATORS NC O2 ABX CHEST PT MEDROL Dr Cook
[2018-02-01 02:06] VITALS: TEMP 97.8
[2018-02-01] MEDS: ALBUTEROL SO4 0.083% IH SOL 2.5 MG/3 ML VIAL.NEB. NEB PRN (06:15)
[2018-02-01] MEDS ORDERED: cefTRIAXone SODIUM 1 GM VIAL ONE (08:29)
[2018-02-01] MEDS ORDERED: DEXTROSE 5%-WATER - 50 ML IVPB ONE (08:29)
[2018-02-01] MEDS ORDERED: PT OWN MED DRAWER 7, Y5N ONE (08:34)
[2018-02-01] MEDS: ALBUTEROL SO4 2.5/IPRATROPIUM 0.5 INH SOL 3 ML VIAL.NEB. NEB SCH ×2 (08:56→12:59)
[2018-02-01] MEDS: TIOTROPIUM BROMIDE 2.5 MCG (SPIRIVA) RESPIMAT INHALER IH SCH (09:33)
[2018-02-01] MEDS: CEFTRIAXONE 1 GM in DEXTROSE 5%-WATER - 50 ML IVPB SCH (09:34)
[2018-02-01] MEDS: ACETAMINOPHEN 325 MG TABLET (FP) PO PRN (09:35)
[2018-02-01] MEDS: METOPROLOL TARTRATE 25 MG TABLET (FP) PO SCH (09:36)
[2018-02-01] MEDS: GABAPENTIN 300 MG CAPSULE (FP) PO SCH (09:36)
[2018-02-01] MEDS: HEPARIN NA (PORCINE) 5,000 UNITS/ML 1ML VIAL SQ SCH (09:36)
[2018-02-01] MEDS: methylPREDNISolone NA SUCC 40 MG/1 ML VIAL IVPUSH SCH (09:36)
[2018-02-01] MEDS: guaiFENesin 600 MG TABLET.ER (FP) PO SCH (09:36)
[2018-02-01] MEDS: FUROSEMIDE 40 MG TABLET (FP) PO SCH (09:37)
[2018-02-01] MEDS: ALLOPURINOL 300 MG TABLET (FP) PO SCH (09:38)
[2018-02-01 10:12] VITALS: BP 124/61; PULSE 90
--- NOTE | 2018-02-01 11:57 | DS ---
Physical Examination Vital Signs: Vital Signs Temperature 36.6 C 01/31/18 22:00 Pulse Rate 90 02/01/18 10:00 Respiratory Rate 20 02/01/18 10:00 Blood Pressure 124/61 02/01/18 10:00 O2 Sat by Pulse Oximetry (%) 100 02/01/18 08:15 Constitutional: Yes: Well Nourished, No Distress, Calm Cardiovascular: Yes: Regular Rate and Rhythm. No: Gallop, Murmur, Rub Respiratory: Yes: Regular, CTA Bilaterally. No: Rales, Rhonchi, Wheezes Gastrointestinal: Yes: Normal Bowel Sounds, Soft. No: Distention, Tenderness Extremities: Yes: WNL Edema: No Labs: CBC, BMP 01/31/18 05:17 01/31/18 05:17 Discharge Summary Reason For Visit: LESION OF LIVER; SEPSIS; PNEUMONIA Current Active Problems Abdominal hernia (Acute) Abdominal pain, right lateral (Acute) Anemia (Acute) Anorexia (Acute) Atrial fibrillation (Acute) COPD (chronic obstructive pulmonary disease) (Acute) Chronic respiratory failure with hypoxia (Acute) Colon cancer (Acute) Colon polyp (Acute) Colostomy hernia (Acute) Diverticulosis (Acute) Edema due to hypoalbuminemia (Acute) Liver lesion (Acute) Liver metastases (Acute) Nephrolithiasis (Acute) Pneumonia (Acute) Weight loss (Acute) Hospital Course: (1) Pneumonia Code(s): J18.9 - PNEUMONIA, UNSPECIFIED ORGANISM (2) Atrial fibrillation Code(s): I48.91 - UNSPECIFIED ATRIAL FIBRILLATION Qualifiers: Atrial fibrillation type: chronic Qualified Code(s): I48.2 - Chronic atrial fibrillation (3) Edema secondary to liver metastases Code(s): (4) COPD (chronic obstructive pulmonary disease) Code(s): J44.9 - CHRONIC OBSTRUCTIVE PULMONARY DISEASE, UNSPECIFIED (5) Liver metastases Code(s): C78.7 - SECONDARY MALIG NEOPLASM OF LIVER AND INTRAHEPATIC BILE DUCT (6) Chronic respiratory failure with hypoxia Code(s): J96.11 - CHRONIC RESPIRATORY FAILURE WITH HYPOXIA (7) Neuropathy Mr Ernandez is a pleasant 87 year old male who comes in with pneumonia and found to have liver lesions that are most likely metastatic cancer. He was admitted and seen by ID. He finished a full course of rocephin without difficulty. He was incidentally found to have liver masses. They are suspicious for metastatic cancer but patient is currently declining any workup including biopsy. He had edema and this was secondary to liver dysfunction from metastases, he was diuresed with IV lasix and was transitioned successfully to oral lasix. He had a COPD exacerbation, he was seen by pulmonary and had a short course of IV steroids with good response. He was also started on low dose oxycodone for his neuropathy pain and this was well controlled. He is currently safe for discharge to SNF. Case d/w his son who understands plan. 37 minutes spent in preparation of this discharge Condition: Stable - Instructions Diet, Activity, Other Instructions: sodium controlled diet. Up with assistance, further activity per PT at SNF. Referrals: Edison Davalos MD [Primary Care Provider] - Disposition: [facility] - Home Medications Comprehensive Discharge Medication List: Ambulatory Orders Albuterol Sulfate [Proair Hfa] 8.5 gm IH PRN 01/22/18 Allopurinol 300 mg PO DAILY 01/22/18 Furosemide [Lasix] 40 mg PO DAILY 01/22/18 Gabapentin 300 mg PO BID 01/22/18 Metoprolol Tartrate [Lopressor -] 25 mg PO BID 01/22/18 Acetaminophen [Tylenol .Regular Strength -] 650 mg PO Q4H PRN tablet 02/01/18 Albuterol 2.5/Ipratropium 0.5 [Duoneb -] 1 amp NEB RQID amp 02/01/18 Clopidogrel Bisulfate [Plavix -] 75 mg PO DAILY #30 tablet 02/01/18 Guaifenesin [Mucinex -] 600 mg PO BID tablet.er 02/01/18 Tiotropium [place] [Spiriva Respimat] 2 puff IH DAILY inhaler 02/01/18 oxyCODONE HCL [Roxicodone -] 2.5 mg PO Q4H PRN tablet MDD 20mg 02/01/18 predniSONE [Deltasone -] 5 mg PO ASDIR #78 tab 02/01/18
--- NOTE | 2018-02-01 12:14 | PN ---
Progress Note (short form) - Note Progress Note: cough improved Vital Signs Period Temp Pulse Resp BP Sys/Lepe Pulse Ox Last 24 Hr 97.8 F-99.0 F 90-102 18-20 101-134/53-66 100-100 cor-rrr lungs decreased bs at bases abd soft,nt ext no edema CBC, BMP 01/31/18 05:17 01/31/18 05:17 Microbiology 01/22/18 13:47 Blood - Peripheral Venous Blood Culture - Final NO GROWTH AFTER 5 DAYS INCUBATION 01/22/18 13:45 Blood - Peripheral Venous Blood Culture - Final NO GROWTH AFTER 5 DAYS INCUBATION 01/24/18 13:15 Urine For Antigen Detection Legionella Antigen - Final 01/24/18 13:15 Urine For Antigen Detection Streptococcus pneumoniae Antigen (M - Final 01/23/18 06:30 Urine - Urine Clean Catch Urine Culture - Final NO GROWTH OBTAINED a/p cough improved pneumonia liver lesions most likely mets he has declined workup rocephin day #10, d/c antibiotics please call back if needed Problem List - Problems (1) Pneumonia Code(s): J18.9 - PNEUMONIA, UNSPECIFIED ORGANISM (2) Liver lesion Code(s): K76.9 - LIVER DISEASE, UNSPECIFIED (3) Colon cancer Code(s): C18.9 - MALIGNANT NEOPLASM OF COLON, UNSPECIFIED (4) Anemia Code(s): D64.9 - ANEMIA, UNSPECIFIED
== END 2018-02-01 14:10 | DRG 435 ==
LOC: JER 12:27 → JERBED 17:37 → J4W 22:01
PROVIDERS: ADMIT Internal Medicine; ATTEND Internal Medicine
PROC: 30233N1 Transfusion of Nonautologous Red Blood Cells into Peripheral Vein, Percutaneous Approach (ICD-10-PCS; principal; 2018-01-24)
DX: C78.7 Secondary malignant neoplasm of liver and intrahepatic bile duct (principal); J18.9 Pneumonia, unspecified organism; J44.0 Chronic obstructive pulmonary disease with (acute) lower respiratory infection; J96.11 Chronic respiratory failure with hypoxia; J90 Pleural effusion, not elsewhere classified; J44.1 Chronic obstructive pulmonary disease with (acute) exacerbation; I48.91 Unspecified atrial fibrillation; I50.9 Heart failure, unspecified; E87.79 Other fluid overload; D64.9 Anemia, unspecified; I48.2 Chronic atrial fibrillation
CPT/HCPCS: 36415; 36430; 71045-TC-FY; 71260-TC; 74177-TC; 80048; 80053; 81003; 81015; 82105; 82150; 82378; 82550; 82607; 82746; 82803; 83605; 83690; 83735; 84100; 84484; 85025; 85610; 85730; 86301; 86850; 86900; 86901; 86922; 87040; 87086; 87899; 93005; 93010; 93306-TC; 94640; 97116-GP; 97162-GP; 99284-25; J1644; J7620; P9038; P9058

== ENCOUNTER 2018-03-03 19:36 | Inpatient (IN) | payer OTHER ==
[2018-03-03 19:44] VITALS: BMI 25.1
--- NOTE | 2018-03-03 20:18 | PDOC ---
Attending Attestation - Resident Resident Name: Gladis Rodrigues - ED Attending Attestation I have performed the following: I have examined & evaluated the patient, The case was reviewed & discussed with the resident, I agree w/resident's findings & plan, Exceptions are as noted - Medical Decision Making 03/03/18 20:18 I, Dr. Precious Talbot, DO, attest that this document has been prepared under my direction and personally reviewed by me in its entirety. I further attest, that it accurately reflects all work, treatment, procedures and medical decision -making performed by me.
--- NOTE | 2018-03-03 21:50 | PDOC ---
Attending Attestation - HPI HPI: 03/03/18 21:50 The patient is a 87 year old male, with a significant past medical history of Afib, COPD, and colon cancer (s/p colectomy and ostomy creation) , who presents to the emergency department with, non-draining colostomy, nausea with 2 episodes of black emesis, and abdominal pain. Patient notes he has not changed his colostomy bag in 2 days. Patient also endorses a pain to his sacral ulcer. Patient is a poor historian. He denies any recent fevers, chills, headache or dizziness. He denies any recent chest pain or shortness of breath. Allergies: NKA Past surgical history: colectomy and ostomy creation Social History: Former smoker. Primary Care Physician: Dr. Davalos Urologist: Dr. Membreno <Anita Haas - Last Filed: 03/03/18 21:50> - Resident Resident Name: Nicolasa Hein - ED Attending Attestation I have performed the following: I have examined & evaluated the patient, The case was reviewed & discussed with the resident, I agree w/resident's findings & plan, Exceptions are as noted - Physicial Exam PE: 03/04/18 07:30 agree with exam documented by resident - Medical Decision Making 03/04/18 07:30 87M with colostomy 2/2 GI CA, AFib here with constipation for several days now with n/v. Initially vitally stable, but ekg showed afib with RVR, treated with one dose of dilt with good effect. BP found to be decreased to 80s/50s but responsive to fluid with good MAP. CT ap showed SBO farm service consultant refused patient and recommended transfer of patient 2/2 complicated medical condition and instability for acute surgical intervention Planned for medical admission for NGT decompression and medical stabilization. Medical evaluation for admission stated patient stable enough for transfer. [facility] center called and patient accepted to step down <Pieter Reeves - Last Filed: 03/04/18 07:35> Attestations - Attestations 03/03/18 21:50 Documentation prepared by Anita Haas, acting as medical coding instructor for Pieter Reeves MD. <Anita Haas - Last Filed: 03/03/18 21:50>
[2018-03-03 22:29] LABS: BASO % 0.4 % (0-2.0); EOS % 0.1 % (0-4.5); HEMATOCRIT 29.9 % (35.4-49); HEMOGLOBIN 9.6 GM/dL (11.7-16.9); LYMPH % 3.4 % (8-40); MCH 32.7 pg (25.7-33.7); MEAN CELL VOLUME 102.1 fl (80-96); MEAN PLT VOLUME 8.5 fl (7.5-11.1); MONO % 5.6 % (3.8-10.2); NEUT % 90.5 % (42.8-82.8); PLATELET COUNT 309 K/MM3 (134-434); RBC 2.93 M/mm3 (4.00-5.60); RDW 17.5 % (11.9-15.9); WHITE BLOOD COUNT 12.6 K/mm3 (4.0-10.0)
[2018-03-03] MEDS ORDERED: dilTIAZem HCL 50 MG/10 ML - 10 ML VIAL IVPUSH ONE ×2 (22:42→22:49)
[2018-03-03] MEDS ORDERED: dilTIAZem HCL 125 MG/25 ML - 25 ML VIAL ONE (22:48)
[2018-03-03 22:52] LABS: ALBUMIN 2.6 g/dl (3.4-5.0); ALK PHOS 212 U/L (45-117); ANION GAP 9 MMOL/L (8-16); BILIRUBIN,TOTAL 1.1 mg/dL (0.2-1); BLOOD UREA NITROGEN 29 mg/dL (7-18); CALCIUM 9.5 mg/dL (8.5-10.1); CHLORIDE 92 mmol/L (98-107); CO2 36 mmol/L (21-32); CREATININE 1.5 mg/dL (0.55-1.3); GLUCOSE,RANDOM 129 mg/dL (74-106); MAGNESIUM 1.6 mg/dL (1.8-2.4); POTASSIUM 4.1 mmol/L (3.5-5.1); SGOT/AST 39 U/L (15-37); SGPT/ALT 16 U/L (13-61); SODIUM 137 mmol/L (136-145)
[2018-03-03 22:55] LABS: INR 1.16 (0.83-1.09); PROTHROMBIN TIME (PATIENT) 13.7 SEC (9.7-13.0)
[2018-03-03 23:02] LABS: ANISOCYTOSIS 1+; MACROCYTOSIS 1+; PLATELET ESTIMATE ADEQUATE
--- NOTE | 2018-03-03 23:22 | PDOC ---
History of Present Illness - General Chief Complaint: Nausea/Vomiting Stated Complaint: SICK Time Seen by Provider: 03/03/18 20:18 History Source: Patient, Old Records Exam Limitations: Other (poor historian) - History of Present Illness Initial Comments: 03/03/18 23:24 Pt is an 87yo m with PMH of colon ca s/p colectomy and ostomy, Afib, COPD (2L at home), Liver mets presenting to ED with complaints of colostomy bag not draining for the past 2 days, nausea and vomiting and sacral ulcer. Pt says he vomited twice today and said it was "black." He has been unable to tolerate po. Pt says the colostomy bag was changed two days ago and has not been draining. He denies fevers, urinary symptoms, headaches, chest pain, SOB. PMD: Leonie PMH: see hpi PSH: see hpi Meds: see med rec Social: denies Allergies: nkda Past History - Past Medical History Allergies/Adverse Reactions: Allergies Allergy/AdvReac Type Severity Reaction Status Date / Time No Known Allergies Allergy Verified 03/03/18 19:37 Home Medications: Ambulatory Orders Albuterol Sulfate [Proair Hfa] 8.5 gm IH PRN 01/22/18 Allopurinol 300 mg PO DAILY 01/22/18 Furosemide [Lasix] 40 mg PO DAILY 01/22/18 Gabapentin 300 mg PO BID 01/22/18 Metoprolol Tartrate [Lopressor -] 25 mg PO BID 01/22/18 Acetaminophen [Tylenol .Regular Strength -] 650 mg PO Q4H PRN tablet 02/01/18 Albuterol 2.5/Ipratropium 0.5 [Duoneb -] 1 amp NEB RQID amp 02/01/18 Clopidogrel Bisulfate [Plavix -] 75 mg PO DAILY #30 tablet 02/01/18 Guaifenesin [Mucinex -] 600 mg PO BID tablet.er 02/01/18 Tiotropium [place] [Spiriva Respimat] 2 puff IH DAILY inhaler 02/01/18 oxyCODONE HCL [Roxicodone -] 2.5 mg PO Q4H PRN tablet MDD 20mg 02/01/18 predniSONE [Deltasone -] 5 mg PO ASDIR #78 tab 02/01/18 Anemia: Yes Asthma: No Cancer: 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) Cardiac Disorders: Yes (svt) COPD: Yes CHF: Yes GI Disorders: Yes (diverticulosis, LLQ colostomy) Disorders: Yes (bph) HTN: Yes Hypercholesterolemia: Yes - Surgical History Abdominal Surgery: Yes (colostomy.) Orthopedic Surgery: Yes (rt.hip replacement) - Immunization History Td Vaccination: Yes TDAP Vaccination: Yes Immunization Up to Date: Yes - Suicide/Smoking/Psychosocial Hx Smoking Status: No Smoking History: Unknown if ever smoked Have you smoked in the past 12 months: No Number of Cigarettes Smoked Daily: 0 Information on smoking cessation initiated: No Hx Alcohol Use: No Drug/Substance Use Hx: No Substance Use Type: None Hx Substance Use Treatment: No Review of Systems - Review of Systems Constitutional: No: Chills, Fever HEENTM: No: Recent change in vision, Throat Pain Respiratory: No: Cough, Shortness of Breath, Hemoptysis Cardiac (ROS): Yes: Lightheadedness. No: Chest Pain, Palpitations, Syncope ABD/GI: Yes: See HPI, Abdominal Distended, Nausea, Vomiting. No: Constipated, Diarrhea : No: Dysuria, Frequency, Hematuria Musculoskeletal: No: Back Pain, Joint Pain, Neck Pain Integumentary: No: Symptoms Reported Neurological: No: Headache, Numbness, Paresthesia, Tingling *Physical Exam - Vital Signs Last Vital Signs Temp Pulse Resp BP Pulse Ox 97.1 F L 78 18 147/69 98 03/03/18 19:43 03/03/18 19:43 03/03/18 19:43 03/03/18 19:43 03/03/18 20:45 - Physical Exam General Appearance: Yes: Moderate Distress, Cachetic HEENT: positive: EOMI, NICA, Other (dentures in place). negative: Pale Conjunctivae, Scleral Icterus (R), Scleral Icterus (L) Neck: positive: Trachea midline, Supple. negative: Lymphadenopathy (R), Lymphadenopathy (L) Respiratory/Chest: positive: Crackles. negative: Decreased Breath Sounds, Rhonchi, Stridor, Wheezing Cardiovascular: positive: Irregularly Irregular. negative: JVD Vascular Pulses: Carotid (R): 2+, Carotid (L): 2+ Gastrointestinal/Abdominal: positive: Normal Bowel Sounds, Organomegaly ( hepatomegaly), Distended, Tenderness (in all quadrants). negative: Pulsatile Mass, Guarding, Rebound Musculoskeletal: negative: CVA Tenderness Extremity: positive: Normal Capillary Refill, Pedal Edema (up to knees 2+ pitting). negative: Coldness, Cyanosis Integumentary: positive: Normal Color, Dry, Warm ED Treatment Course - LABORATORY CBC & Chemistry Diagram: 03/03/18 22:24 03/03/18 22:24 - ADDITIONAL ORDERS Additional order review: Laboratory Results 03/03/18 03/03/18 03/03/18 22:24 22:24 22:24 PT with INR 13.70 H INR 1.16 H Sodium 137 Potassium 4.1 Chloride 92 L Carbon Dioxide 36 H Anion Gap 9 BUN 29 H Creatinine 1.5 H Creat Clearance w eGFR 44.07 Random Glucose 129 H Lactic Acid 2.1 H Calcium 9.5 Magnesium 1.6 L Total Bilirubin 1.1 H AST 39 H ALT 16 Alkaline Phosphatase 212 H Creatine Kinase Troponin I Total Protein 6.0 L Albumin 2.6 L 03/03/18 22:21 PT with INR INR Sodium Potassium Chloride Carbon Dioxide Anion Gap BUN Creatinine Creat Clearance w eGFR Random Glucose Lactic Acid Calcium Magnesium Total Bilirubin AST ALT Alkaline Phosphatase Creatine Kinase 53 Troponin I < 0.02 Total Protein Albumin 03/03/18 22:24 RBC 2.93 L MCV 102.1 H MCHC 32.0 RDW 17.5 H MPV 8.5 Neutrophils % 90.5 H Lymphocytes % 3.4 L D Monocytes % 5.6 Eosinophils % 0.1 D Basophils % 0.4 D - RADIOLOGY Radiology Studies Ordered: Category Date Time Status ABDOMEN & PELVIS CT WITH CONTR [CT] Stat CT Scan 03/03/18 21:42 Ordered CHEST X-RAY PORTABLE* [RAD] Stat Radiology 03/03/18 21:44 Taken - Medications Given in the ED: ED Medications Discontinued Medications Generic Name Dose Route Start Last Admin Trade Name Freq PRN Reason Stop Dose Admin Diltiazem HCl 5 mg 03/03/18 22:42 03/03/18 22:54 Cardizem Injection - IVPUSH 03/03/18 22:43 Not Given ONCE ONE Diltiazem HCl 20 mg 03/03/18 22:49 03/03/18 22:54 Cardizem Injection - IVPUSH 03/03/18 22:50 20 mg ONCE ONE Administration Medical Decision Making - Medical Decision Making Pt is an 87yo m with PMH of colon ca s/p colectomy and ostomy, Afib, COPD (2L at home), Liver mets presenting to ED with complaints of colostomy bag not draining for the past 2 days, nausea and vomiting and sacral ulcer. Vitals: Selected Entries 03/03/18 19:43 Temperature 97.1 F L Pulse Rate 78 Respiratory 18 Rate Blood Pressure 147/69 O2 Sat by Pulse 96 Oximetry (%) PE: distended abdomen, tender to palpation, splenomegaly and mass palpated. Ddx: SBO, obstruction, ileus, impaction, pancreatitis, cholecystitis, AAA Labs ordered. CT with contrast ordered. EKG ordered. Laboratory Tests 03/03/18 03/03/18 03/03/18 22:21 22:24 22:24 WBC 12.6 H Hgb 9.6 L Hct 29.9 L Plt Count 309 Neutrophils % 90.5 H INR 1.16 H Creatinine Lactic Acid AST Alkaline Phosphatase Troponin I < 0.02 03/03/18 03/03/18 22:24 22:24 WBC Hgb Hct Plt Count Neutrophils % INR Creatinine 1.5 H Lactic Acid 2.1 H AST 39 H Alkaline Phosphatase 212 H Troponin I Lactic only slightly elevated. Cr elevated above baseline (KATH). Ct ordered without contrast. 03/03/18 23:21 EKG showed Afib RVR (Hr in 160s). Started 20mg Diltiazem. Will wait 15 minutes and repeat EKG. HR now 100s-110s. Repeating EKG EKG showed Afib. no ezequiel or depressions. 03/03/18 23:50 had emesis, coffee ground looking 03/04/18 01:46 sbo hernia in llq passes through. CTAP: 5 mm subpleural nodule right lower lobe, advise followup. Left lower quadrant colostomy with large partly seen parastomal hernia measuring approximately 17 x 12 cm axially and at least 13.8 cm craniocaudally. Moderately dilated, fluid- and air-filled small bowel within the hernia sac as well as with the left upper and left lower quadrants, consistent with small bowel obstruction, which could be related to the hernia or could be secondary to adhesions. Transition point appears to be just beyond the herniated small bowel , within the left lower quadrant. Hernia neck measures approximately 5.5 cm, and there is no focal narrowing of the dilated small bowel that passes through the neck. Small free fluid in hernia sac. Decompressed distal small bowel. Surgical changes left lower quadrant small bowel. Presacral soft tissue thickening, possibly scarring secondary to nearby surgical changes, but advise followup to exclude recurrent/residual mass. 4.8 x 2.6 x 4.6 cm fluid-containing structure just anterior to this region could represent a postoperative seroma versus a tented portion of bladder. No colitis or free air . Air-filled appendix probably containing diverticula. No pericecal inflammation to suggest acute appendicitis. Tortuous aorta with 4.1 cm fusiform infrarenal aneurysm and a 4.0 x 3.9 x 2.9 cm saccular aneurysm just above bifurcation on the right. No retroperitoneal hematoma. Hepatosplenomegaly. Slightly nodular liver contour, possibly cirrhosis. Scattered hyperdensities in liver, question chemoembolization material. Small ascites. Small nonobstructing stones and cystic foci bilateral kidneys. No ureterolithiasis or obstructive uropathy. No bladder calculi. Unremarkable pancreas and gallbladder. Abdominal wall laxity. Subcutaneous edema. Bilateral iliac bone lucencies that could represent bone cysts, although a 2.4 cm lytic lesion on the right is also a possibility. Consider bone scan correlation. Chronic compression fracture T11. Arthroplasty right hip. Chronic left rib fractures. Coronary artery disease. Small pericardial effusion. Emphysematous changes lung bases 03/04/18 01:[address] Cooper who recommended transfer to tertiary center 03/04/18 02:18 Calling [facility]. said pt is not stable for transfer. Pt can be medically treated here then go to OR. Will consult ICU. OG tube placed, drained 2800+mL of dark brown fluid. decreaesd bp 80s/50s Will order another L of fluid. 03/04/18 06:30 Pt rate controlled in 100s. Bp 90s/60s, saturating 98% 2LNC pt started on another liter. Called back Dr. Cooper, still recommended transfer. called [facility] transfer center, pt will be accepted to step down unit by Dr. Delon West. Waiting for bed. Pt informed and agreed to transfer. OG tube removed and NG tube placed. another IV placed. PT started on 3rd liter of NS. Will trend bp. Pt is otherwise rate controlled. Waiting for transfer. Morning team will be informed of patient. Will monitor BP *DC/Admit/Observation/Transfer Diagnosis at time of Disposition: SBO (small bowel obstruction), KATH (acute kidney injury) AAA (abdominal aortic aneurysm) Qualifiers: Presence of rupture: without rupture Qualified Code(s): I71.4 - Abdominal aortic aneurysm, without rupture - Discharge Dispostion Disposition: TRANSFER ACUTE CARE/OTHER HOSP Condition at time of disposition: Good - Referrals - Patient Instructions - Post Discharge Activity
[2018-03-03] MEDS ORDERED: ONDANSETRON 4 MG/2 ML VIAL IVPB ONE (23:48)
[2018-03-03] MEDS ORDERED: SODIUM CHLORIDE 500 ML IV STA (23:49)
[2018-03-04] MEDS ORDERED: dilTIAZem HCL 50 MG/10 ML - 10 ML VIAL IVPUSH ONE (00:02)
[2018-03-04] MEDS ORDERED: ONDANSETRON 4 MG/2 ML VIAL ONE (00:10)
[2018-03-04] MEDS ORDERED: PANTOPRAZOLE SODIUM 40 MG VIAL IVPUSH ONE (00:16)
[2018-03-04] MEDS ORDERED: PANTOPRAZOLE SODIUM 80 MG/200 ML BAG IVPB ONE (02:08)
[2018-03-04] MEDS ORDERED: SODIUM CHLORIDE 1,000 ML IV STA ×2 (03:27→05:12)
--- NOTE | 2018-03-04 07:59 | PDOC ---
*Physical Exam - Vital Signs Last Vital Signs Temp Pulse Resp BP Pulse Ox 97.1 F L 95 H 18 93/51 L 95 03/03/18 19:43 03/04/18 07:33 03/04/18 07:33 03/04/18 07:33 03/04/18 07:33 - Physical Exam Comments: 03/04/18 09:02 General Appearance: Nourished. No Apparent Distress HEENT: NG tube in palce. No Pharyngeal Erythema, Tonsillar Exudate, Tonsillar Erythema Neck: No Cervical Lymphadenopathy Respiratory/Chest: Lungs Clear, Normal Breath Sounds. No Crackles, Rales, Rhonchi, Wheezing Cardiovascular: Regular Rhythm, Regular Rate. No Murmur, Gallops, Rubs Gastrointestinal/Abdominal: Colostomy bag in place. Diffuse discomfort with palpation. No Guarding, Rebound, Musculoskeletal: No CVA Tenderness Extremity: Normal Capillary Refill Integumentary: Normal Color, Dry, Warm Neurologic: Fully Oriented, Alert, Normal Mood/Affect, Normal Response, ED Treatment Course - LABORATORY CBC & Chemistry Diagram: 03/03/18 22:24 03/03/18 22:24 - ADDITIONAL ORDERS Additional order review: Laboratory Results 03/04/18 03/03/18 03/03/18 05:03 22:24 22:24 PT with INR INR PTT (Actin FS) 31.0 Sodium 137 Potassium 4.1 Chloride 92 L Carbon Dioxide 36 H Anion Gap 9 BUN 29 H Creatinine 1.5 H Creat Clearance w eGFR 44.07 Random Glucose 129 H Lactic Acid 2.1 H Calcium 9.5 Magnesium 1.6 L Total Bilirubin 1.1 H AST 39 H ALT 16 Alkaline Phosphatase 212 H Creatine Kinase Troponin I Total Protein 6.0 L Albumin 2.6 L Blood Type Antibody Screen 03/03/18 03/03/18 03/03/18 22:24 22:21 22:21 PT with INR 13.70 H INR 1.16 H PTT (Actin FS) Sodium Potassium Chloride Carbon Dioxide Anion Gap BUN Creatinine Creat Clearance w eGFR Random Glucose Lactic Acid Calcium Magnesium Total Bilirubin AST ALT Alkaline Phosphatase Creatine Kinase 53 Troponin I < 0.02 Total Protein Albumin Blood Type O POSITIVE Antibody Screen Negative 03/03/18 22:24 RBC 2.93 L MCV 102.1 H MCHC 32.0 RDW 17.5 H MPV 8.5 Neutrophils % 90.5 H Lymphocytes % 3.4 L D Monocytes % 5.6 Eosinophils % 0.1 D Basophils % 0.4 D - Medications Given in the ED: ED Medications Discontinued Medications Generic Name Dose Route Start Last Admin Trade Name [place]ia PRN Reason Stop Dose Admin Diltiazem HCl 5 mg 03/03/18 22:42 03/03/18 22:54 Cardizem Injection - IVPUSH 03/03/18 22:43 Not Given ONCE ONE Diltiazem HCl 20 mg 03/03/18 22:49 03/03/18 22:54 Cardizem Injection - IVPUSH 03/03/18 22:50 20 mg ONCE ONE Administration Diltiazem HCl 25 mg 03/04/18 00:02 03/04/18 00:31 Cardizem Injection - IVPUSH 03/04/18 00:03 Not Given ONCE ONE Sodium Chloride 500 mls @ 1,000 mls/hr 03/03/18 23:49 03/04/18 00:23 Normal Saline - IV 03/04/18 00:18 1,000 mls/hr ASDIR STA Administration Sodium Chloride 1,000 mls @ 1,000 mls/hr 03/04/18 03:27 03/04/18 03:48 Normal Saline - IV 03/04/18 04:26 1,000 mls/hr ASDIR STA Administration Sodium Chloride 1,000 mls @ 1,000 mls/hr 03/04/18 05:12 03/04/18 05:31 Normal Saline - IV 03/04/18 06:11 1,000 mls/hr ASDIR STA Administration Ondansetron HCl 4 mg 03/03/18 23:48 03/04/18 00:23 Zofran Injection IVPB 03/03/18 23:49 4 mg ONCE ONE Administration Pantoprazole Sodium 80 mg 03/04/18 00:16 03/04/18 02:06 Protonix Iv IVPUSH 03/04/18 00:17 80 mg ONCE ONE Administration Progress Note - Progress Note Progress Note: The patient is a 87 year old male with multiple co-morbidities who presented for evaluation of nausea, vomiting and his colostomy bag not draining for 2 days. The patient was noted to have a SBO due to a possible incarcerated hernia. The case was discussed with surgery and the patient is not a good surgical candidate. Patient pending transfer to [facility]. Medical Decision Making - Medical Decision Making 03/04/18 09:04 We had a discussion with the patient and the patient's son who both note that the patient does not wish to have surgery under any circumstances. The patient understands the risks including with not having surgery for his condition and continues to state that he does not wish to have any surgical intervention. Given that the patient does not wish to have surgical intervention, we will admit to our service as the patient does not require surgical services at [facility]. We discussed the case with Dr. Milner who accepted the patient for admission. *DC/Admit/Observation/Transfer Diagnosis at time of Disposition: SBO (small bowel obstruction), KATH (acute kidney injury) AAA (abdominal aortic aneurysm) Qualifiers: Presence of rupture: without rupture Qualified Code(s): I71.4 - Abdominal aortic aneurysm, without rupture - Discharge Dispostion Condition at time of disposition: Stable Decision to Admit order: Yes - Referrals - Patient Instructions - Post Discharge Activity
[2018-03-04] MEDS ORDERED: ONDANSETRON 4 MG/2 ML VIAL IVPUSH PRN (10:18)
[2018-03-04] MEDS ORDERED: MAGNESIUM SULF 50% (8.12 MEQ/2 ML-1 GM VIAL) IVPB ONE ×2 (10:24→22:45)
--- NOTE | 2018-03-04 10:24 | HP ---
Admitting History and Physical - Primary Care Physician PCP: Edison Davalos - Admission Chief Complaint: I felt sick History of Present Illness: Mr Ernandez is a very pleasant 87 year old male who comes in with loss of appetite, constipation, and vomiting. He says that he was doing well until approximately 2-3 days ago. It is unclear exactly when the symptoms started as he states he was feeling fine until last night to he started feeling sick around Thursday. He says the first thing he noticed was decreased oral intake. He says he stopped eating but he could not tell me if it was because he was having nausea, anorexia, or abdominal pain. Then next he noted that his colostomy bag was empty, he did not need to change it since Thursday. Then Thursday he had multiple episodes of vomiting. He says it was dark brown. Because of this he came to the hospital. Aside from this he is without complaint. He denies fevers , chills, lightheadedness, dizziness, chest pain or pressure, shortness of breath, abdominal pain, difficulty or pain on urination, or swelling. History Source: Patient Limitations to Obtaining History: No Limitations - Past Medical History Cardiovascular: Yes: CAD (with coronary stenting 08/26), CHF, HTN, Hyperlipdemia , Other (h/o SVT) Pulmonary: Yes: COPD Gastrointestinal: Yes: Cancer (rectal cancer with abdominoperineal resection ), Diverticulosis Renal/: Yes: BPH, Renal Calculi, Other (epididymitis) Heme/Onc: Yes: Cancer (Rectal canbcer excised 08/22) Rheumatology: Yes: Gout Dermatology: Yes: Squamous Cell (cancer of scalp) - Past Surgical History Past Surgical History: Yes: Colonoscopy, Colostomy, Hernia Repair (RIH and LIH) , Joint Replacement (right THR), Prostatectomy, Upper Endoscopy - Smoking History Smoking history: Never smoked Have you smoked in the past 12 months: No Aproximately how many cigarettes per day: 0 - Alcohol/Substance Use Hx Alcohol Use: No History of Substance Use: reports: None - Social History Usual Living Arrangement: Yes: Alone ADL: Independent 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[employer] History of Recent Travel: No Home Medications - Allergies Allergies/Adverse Reactions: Allergies Allergy/AdvReac Type Severity Reaction Status Date / Time No Known Allergies Allergy Verified 03/03/18 19:37 - Home Medications Home Medications: Ambulatory Orders Albuterol Sulfate [Proair Hfa] 8.5 gm IH PRN 01/22/18 Allopurinol 300 mg PO DAILY 01/22/18 Furosemide [Lasix] 40 mg PO DAILY 01/22/18 Gabapentin 200 mg PO HS 01/22/18 Metoprolol Tartrate [Lopressor -] 25 mg PO BID 01/22/18 Acetaminophen [Tylenol .Regular Strength -] 650 mg PO Q4H PRN tablet 02/01/18 Albuterol 2.5/Ipratropium 0.5 [Duoneb -] 1 amp NEB RQID amp 02/01/18 Clopidogrel Bisulfate [Plavix -] 75 mg PO DAILY #30 tablet 02/01/18 Tiotropium [place] [Spiriva Respimat] 2 puff IH DAILY inhaler 02/01/18 Eszopiclone [Lunesta] 2 mg PO HS 03/04/18 Family Disease History - Family Disease History Family Disease History: CA: Father ( of kidney cancer), Daughter ( of cancer ? primary), Other: Mother (lived to ) Review of Systems Findings/Remarks: Full review of systems obtained, as per HPI and otherwise negative Physical Examination Vital Signs: Vital Signs Temperature 36.2 C L 03/03/18 19:43 Pulse Rate 113 H 03/04/18 09:18 Respiratory Rate 16 03/04/18 09:18 Blood Pressure 90/54 L 03/04/18 09:18 O2 Sat by Pulse Oximetry (%) 100 03/04/18 09:18 Constitutional: Yes: Well Nourished, No Distress, Calm Eyes: Yes: Conjunctiva Clear, EOM Intact, PERRL HENT: Yes: Atraumatic, Normocephalic Cardiovascular: Yes: Regular Rate and Rhythm. No: Gallop, Murmur, Rub Respiratory: Yes: Regular, CTA Bilaterally. No: Rales, Rhonchi, Wheezes Gastrointestinal: Yes: Soft, Hypoactive Bowel Sounds, Tenderness, Other ( colostomy bag, clean). No: Normal Bowel Sounds, Distention Extremities: Yes: WNL Edema: No Labs: CBC, BMP 03/03/18 22:24 03/03/18 22:24 Imaging - Results Chest X-ray: Report Reviewed, Image Reviewed Cat Scan: Report Reviewed Problem List - Problems (1) SBO (small bowel obstruction) Assessment/Plan: -patient to be admitted to med/surg -discussed with patient treatment options -patient states that under no circumstances does he want surgery, even if it means -NGT placed to LIWS -surgery consulted and note reviewed -GI consulted -monitor for improvement -pain control Code(s): K56.609 - UNSP INTESTNL OBST, UNSP TO PARTIAL VERSUS COMPLETE OBST (2) KATH (acute kidney injury) Assessment/Plan: -secondary to dehydration -hydrate with IVF -monitor for improvement Code(s): N17.9 - ACUTE KIDNEY FAILURE, UNSPECIFIED (3) AAA (abdominal aortic aneurysm) Assessment/Plan: -present Code(s): I71.4 - ABDOMINAL AORTIC ANEURYSM, WITHOUT RUPTURE Qualifiers: Presence of rupture: without rupture Qualified Code(s): I71.4 - Abdominal aortic aneurysm, without rupture (4) Atrial fibrillation Assessment/Plan: -sounds in sinus rhythm -hold metoprolol currently Code(s): I48.91 - UNSPECIFIED ATRIAL FIBRILLATION Qualifiers: Atrial fibrillation type: chronic Qualified Code(s): I48.2 - Chronic atrial fibrillation (5) COPD (chronic obstructive pulmonary disease) Assessment/Plan: -not in exacerbation Code(s): J44.9 - CHRONIC OBSTRUCTIVE PULMONARY DISEASE, UNSPECIFIED (6) Chronic respiratory failure with hypoxia Assessment/Plan: -continue oxygen Code(s): J96.11 - CHRONIC RESPIRATORY FAILURE WITH HYPOXIA (7) Liver metastases Assessment/Plan: -present Code(s): C78.7 - SECONDARY MALIG NEOPLASM OF LIVER AND INTRAHEPATIC BILE DUCT Assessment/Plan Discussed treatment and goals of care. Mr Ernandez says he is DNR/DNI and he does not want heroic measures. Also says under no circumstances does he want surgery.
[2018-03-04] MEDS ORDERED: ALBUTEROL SO4 8 GM HFA INHALER IH SCH (10:30)
[2018-03-04] MEDS ORDERED: SODIUM CHLORIDE 1,000 ML IV SCH ×2 (10:30→23:55)
[2018-03-04] MEDS ORDERED: MAGNESIUM 1GM/D5W - 1 GM/100 ML IVPB IVPB ONE (10:38)
--- NOTE | 2018-03-04 11:06 | PN ---
Progress Note (short form) - Note Progress Note: surgery 87m with metastatic colon ca, afib, copd on home o2, sacral decubiti, chf, cad with stent, on plavix, on steroids with complex incisional/parastomal hernia and sbo with possible transition in abdominal cavity just distal to exit from parastomal hernia. Agree with transfer to tertiary center as patient may require cardiac cath, 24 physician present surgical/cardiac icu, colorectal surgery, and hernia repair with possible loss of domain.
--- NOTE | 2018-03-04 11:51 | EKG ---
Test Reason : Blood Pressure : / mmHG Vent. Rate : 128 BPM Atrial Rate : 144 BPM P-R Int : 000 ms QRS Dur : 104 ms QT Int : 326 ms P-R-T Axes : 000 153 -05 degrees QTc Int : 475 ms ATRIAL FIBRILLATION WITH RAPID VENTRICULAR RESPONSE RIGHT AXIS DEVIATION INCOMPLETE RIGHT BUNDLE BRANCH BLOCK RIGHT VENTRICULAR HYPERTROPHY NONSPECIFIC ST ABNORMALITY ABNORMAL QRS-T ANGLE, CONSIDER PRIMARY T WAVE ABNORMALITY ABNORMAL ECG WHEN COMPARED WITH ECG OF 03-MAR-2018 21:52, NO SIGNIFICANT CHANGE WAS FOUND Confirmed by CHAVO WERNER MD ([id number]) on 03/04/2018 11:51:14 AM Referred By: Confirmed By:CHAVO WERNER MD
--- NOTE | 2018-03-04 11:52 | EKG ---
Test Reason : Blood Pressure : / mmHG Vent. Rate : 161 BPM Atrial Rate : 174 BPM P-R Int : 000 ms QRS Dur : 096 ms QT Int : 286 ms P-R-T Axes : 000 208 -42 degrees QTc Int : 468 ms ATRIAL FIBRILLATION WITH RAPID VENTRICULAR RESPONSE RIGHT SUPERIOR AXIS DEVIATION PULMONARY DISEASE PATTERN INCOMPLETE RIGHT BUNDLE BRANCH BLOCK RIGHT VENTRICULAR HYPERTROPHY WITH REPOLARIZATION ABNORMALITY MARKED ST ABNORMALITY, POSSIBLE ANTERIOR SUBENDOCARDIAL INJURY ABNORMAL ECG WHEN COMPARED WITH ECG OF 22-JAN-2018 12:48, VENT. RATE HAS INCREASED BY 62 BPM INCOMPLETE RIGHT BUNDLE BRANCH BLOCK HAS REPLACED RIGHT BUNDLE BRANCH BLOCK Confirmed by CHAVO WERNER MD ([id number]) on 03/04/2018 11:52:40 AM Referred By: Confirmed By:CHAVO WERNER MD
[2018-03-04] MEDS ORDERED: MORPHINE SULFATE 2 MG/ML VIAL ONE (13:37)
[2018-03-04] MEDS: MORPHINE SULFATE 2 MG/ML VIAL IVPUSH PRN (13:39)
[2018-03-04] MEDS ORDERED: SODIUM CHLORIDE 250 ML IV STA (22:16)
--- NOTE | 2018-03-04 22:21 | HOSP ---
Physical Examination Vital Signs: Vital Signs Temperature 98.1 F 03/04/18 19:17 Pulse Rate 117 H 03/04/18 19:17 Respiratory Rate 18 03/04/18 20:32 Blood Pressure 99/57 L 03/04/18 19:17 O2 Sat by Pulse Oximetry (%) 94 L 03/04/18 20:32 Labs: CBC, BMP 03/03/18 22:24 03/03/18 22:24 Hospitalist Encounter Assessment: Called by nurse as pt was in SVT with HR around 118-124. Assessed and examined pt. VS: 105/58, HR 118-124 EKG 03/04/18 22:56:14: Atrial fibrillation with RVR w/ premature ventricular or aberrantly conducted complexes. L [place] deviation, low voltage QRS, RBBB, QTc 436. Vent Rate 124 Awake Alert NAD Irregularly irregular CTA B/L anteriorly, 1+ pitting edema Colostomy in place Ordered 250 ML NS Bolus. Chose low amount of fluid to not exacerbate CHF, EKG, will repeat BP. 12:05 am: Repeat BP after 250 cc bolus: 98/57, HR 129 Will start pt on Amiodorone gtt 2/2 hypotension limiting use of diltiazem, transfer to [facility]. Visit type - Emergency Visit Emergency Visit: Yes ED Registration Date: 03/04/18 Care time: The patient presented to the Emergency Department on the above date and was hospitalized for further evaluation of their emergent condition. - New Patient This patient is new to me today: Yes Date on this admission: 03/05/18 - Critical Care Critical Care patient: No
[2018-03-04] MEDS ORDERED: AMIODARONE IN DEXTROSE,ISO-OSM 360 MG/200 ML BAG IVPB SCH (23:45)
[2018-03-04] MEDS ORDERED: AMIODARONE IN DEXTROSE,ISO-OSM 150 MG/100 ML BAG IVPB ONE (23:55)
[2018-03-05 06:59] LABS: BASO % 0.2 % (0-2.0); EOS % 0.1 % (0-4.5); HEMATOCRIT 25.7 % (35.4-49); HEMOGLOBIN 7.8 GM/dL (11.7-16.9); LYMPH % 12.5 % (8-40); MCH 31.4 pg (25.7-33.7); MCHC 30.4 g/dl (32.0-35.9); MEAN CELL VOLUME 103.4 fl (80-96); MEAN PLT VOLUME 8.7 fl (7.5-11.1); MONO % 14.1 % (3.8-10.2); NEUT % 73.1 % (42.8-82.8); PLATELET COUNT 189 K/MM3 (134-434); RBC 2.49 M/mm3 (4.00-5.60); RDW 17.3 % (11.9-15.9); WHITE BLOOD COUNT 5.7 K/mm3 (4.0-10.0)
[2018-03-05] MEDS: ALBUTEROL SO4 2.5/IPRATROPIUM 0.5 INH SOL 3 ML VIAL.NEB. NEB SCH ×4 (07:05→21:20)
[2018-03-05 07:26] LABS: ALBUMIN 2.1 g/dl (3.4-5.0); ALK PHOS 151 U/L (45-117); ANION GAP 9 MMOL/L (8-16); BILIRUBIN,TOTAL 0.7 mg/dL (0.2-1); BLOOD UREA NITROGEN 47 mg/dL (7-18); CALCIUM 8.8 mg/dL (8.5-10.1); CHLORIDE 100 mmol/L (98-107); CO2 32 mmol/L (21-32); CREATININE 1.8 mg/dL (0.55-1.3); GLUCOSE,RANDOM 88 mg/dL (74-106); MAGNESIUM 2.4 mg/dL (1.8-2.4); PHOSPHOROUS 4.2 mg/dL (2.5-4.9); POTASSIUM 4.1 mmol/L (3.5-5.1); SGOT/AST 181 U/L (15-37); SGPT/ALT 27 U/L (13-61); SODIUM 140 mmol/L (136-145); TOT PROT 5.1 g/dl (6.4-8.2)
[2018-03-05] MEDS ORDERED: TIOTROPIUM BROMIDE 2.5 MCG (SPIRIVA) RESPIMAT INHALER IH SCH (10:00)
[2018-03-05 12:24] LABS: ANISOCYTOSIS 1+; MACROCYTOSIS 1+; PLATELET ESTIMATE NORMAL
[2018-03-05] MEDS: ACETAMINOPHEN 1000 MG/100 ML VIAL (NON FORMULARY) IVPB PRN (12:26)
--- NOTE | 2018-03-05 13:06 | PN ---
Progress Note, Physician - Current Medication List Current Medications: Active Medications Acetaminophen (Ofirmev Injection -) 1,000 mg IVPB Q6H PRN PRN Reason: PAIN LEVEL 1-5 Last Admin: 03/05/18 12:26 Dose: 1,000 mg Albuterol/Ipratropium (Duoneb -) 1 amp NEB RQID KELLEE Last Admin: 03/05/18 11:29 Dose: 1 amp Sodium Chloride (Normal Saline -) 1,000 mls @ 100 mls/hr IV ASDIR KELLEE Last Admin: 03/05/18 01:36 Dose: 100 mls/hr Amiodarone HCl/Dextrose (Nexterone 360 Mg/200 Ml Bag) 360 mg in 200 mls @ 16.667 mls/hr IVPB TITR KELLEE; Protocol Last Admin: 03/05/18 01:29 Dose: 0.5 mg/min, 16.667 mls/hr Metronidazole (Flagyl 500mg Premixed Ivpb -) 500 mg in 100 mls @ 100 mls/hr IVPB Q8H-IV KELLEE Levofloxacin (Levaquin 500 Mg Premixed Ivpb -) 500 mg in 100 mls @ 100 mls/hr IVPB ONCE ONE Stop: 03/05/18 14:29 Levofloxacin (Levaquin 250 Mg Premixed Ivpb -) 250 mg in 50 mls @ 50 mls/hr IVPB DAILY KELLEE; Protocol Morphine Sulfate (Morphine Sulfate) 1 mg IVPUSH Q4H PRN PRN Reason: PAIN LEVEL 6-10 Last Admin: 03/04/18 13:39 Dose: 1 mg Ondansetron HCl (Zofran Injection) 4 mg IVPUSH Q6H PRN PRN Reason: NAUSEA - Objective Vital Signs: Vital Signs Temperature 38.2 C H 03/05/18 12:28 Pulse Rate 120 H 03/05/18 10:00 Respiratory Rate 18 03/05/18 10:00 Blood Pressure 100/56 L 03/05/18 10:00 O2 Sat by Pulse Oximetry (%) 94 L 03/04/18 20:32 Labs: CBC, BMP 03/05/18 05:30 03/05/18 05:30 INR, PTT INR 1.16 (0.83-1.09) H 03/03/18 22:24 Problem List - Problems (1) SBO (small bowel obstruction) Code(s): K56.609 - UNSP INTESTNL OBST, UNSP TO PARTIAL VERSUS COMPLETE OBST (2) KATH (acute kidney injury) Code(s): N17.9 - ACUTE KIDNEY FAILURE, UNSPECIFIED (3) AAA (abdominal aortic aneurysm) Code(s): I71.4 - ABDOMINAL AORTIC ANEURYSM, WITHOUT RUPTURE Qualifiers: Presence of rupture: without rupture Qualified Code(s): I71.4 - Abdominal aortic aneurysm, without rupture (4) Atrial fibrillation Code(s): I48.91 - UNSPECIFIED ATRIAL FIBRILLATION Qualifiers: Atrial fibrillation type: chronic Qualified Code(s): I48.2 - Chronic atrial fibrillation (5) COPD (chronic obstructive pulmonary disease) Code(s): J44.9 - CHRONIC OBSTRUCTIVE PULMONARY DISEASE, UNSPECIFIED (6) Chronic respiratory failure with hypoxia Code(s): J96.11 - CHRONIC RESPIRATORY FAILURE WITH HYPOXIA (7) Liver metastases Code(s): C78.7 - SECONDARY MALIG NEOPLASM OF LIVER AND INTRAHEPATIC BILE DUCT
[2018-03-05 14:42] LABS: URINE APPEARANCE SLCLOUDY; URINE BILIRUBIN NEGATIVE (<2.0 mg/dL); URINE COLOR DKYELLOW; URINE GLUCOSE (UA) NEGATIVE (NEGATIVE); URINE KETONE NEGATIVE (NEGATIVE); URINE LEUK ESTERASE 1+ (NEGATIVE); URINE NITRITE NEGATIVE (NEGATIVE); URINE PROTEIN NEGATIVE (NEGATIVE); URINE UROBILINOGEN NEGATIVE mg/dL (0.2-1.0)
--- NOTE | 2018-03-05 14:49 | CON.GI ---
Consult Consult Specialty:: Gastroenterology Referred by:: Dr. Davalos Reason for Consultation:: Bowel obstruction - History of Present Illness Chief Complaint: Vomiting and abdominal pain History of Present Illness: 87M is admitted with vomiting dark stagnant small bowel contents and imaging reveals an SBO at the level of his ostomy hernia. He was seen by DR Servin and determined to need tertiary care transfer for surgery. Arcadio has refused the transfer and surgery. He was found to have multiple liver lesiopns felt to reflect metastatic disease when I last consulted on him on 01/23/18. He opted to declare himself a DNR and opted against any diagnostics ( liver biopsy) or heroic interventions. He had an abdominoperineal resection for rectal cancer in 2004. He last had a colonoscopy on 10/19/09 which led to the removal of a transverse colon polyp. EGD on 10/26/09 revealed nonerosive acid reflux, a prebyesophagus and a J shaped stomach. He denies any pain at present. NO colostostomy output since discharge but NG output appears minimal ( ? 200cc) - History Source History Provided By: Patient Limitations to Obtaining History: No Limitations - Past Medical History Cardio/Vascular: Yes: CAD (with coronary stenting 08/26), CHF, HTN, Hyperlipdemia , Other (h/o SVT) Pulmonary: Yes: COPD Gastrointestinal: Yes: Cancer (rectal cancer with abdominoperineal resection , permanent colostomy with hernia), Diverticulosis, GERD Renal/: Yes: BPH, Renal Calculi, Other (epididymitis) Heme/Onc: Yes: Cancer (rectal cancer 2004) Rheumatology: Yes: Gout Dermatology: Yes: Squamous Cell (cancer of scalp) - Past Surgical History Past Surgical History: Yes: Colonoscopy, Colostomy, Hernia Repair (RIH and LIH) , Joint Replacement (right THR), Prostatectomy, Upper Endoscopy Additional Surgical History: open right ureteral stone extraction. 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[employer] Place of : [facility] History of Recent Travel: No Home Medications - Allergies Allergies/Adverse Reactions: Allergies Allergy/AdvReac Type Severity Reaction Status Date / Time No Known Allergies Allergy Verified 03/03/18 19:37 - Home Medications Home Medications: Ambulatory Orders Albuterol Sulfate [Proair Hfa] 8.5 gm IH PRN 01/22/18 Allopurinol 300 mg PO DAILY 01/22/18 Furosemide [Lasix] 40 mg PO DAILY 01/22/18 Gabapentin 200 mg PO HS 01/22/18 Metoprolol Tartrate [Lopressor -] 25 mg PO BID 01/22/18 Acetaminophen [Tylenol .Regular Strength -] 650 mg PO Q4H PRN tablet 02/01/18 Albuterol 2.5/Ipratropium 0.5 [Duoneb -] 1 amp NEB RQID amp 02/01/18 Clopidogrel Bisulfate [Plavix -] 75 mg PO DAILY #30 tablet 02/01/18 Tiotropium [place] [Spiriva Respimat] 2 puff IH DAILY inhaler 02/01/18 Eszopiclone [Lunesta] 2 mg PO HS 03/04/18 Family Disease History - Family Disease History Family Disease History: CA: Father ( of kidney cancer), Daughter ( of cancer ? primary), Other: Mother (lived to ) Review of Systems - Review of Systems Constitutional: reports: Loss of Appetite, Unintentional Wgt. Loss Eyes: reports: No Symptoms HENT: reports: No Symptoms Neck: reports: No Symptoms Cardiovascular: reports: No Symptoms Respiratory: reports: SOB on Exertion Gastrointestinal: reports: Abdominal Pain, Bloating, Vomiting Genitourinary: reports: No Symptoms Musculoskeletal: reports: Joint Pain Physical Exam-GI Vital Signs: Vital Signs Temperature 100.8 F H 03/05/18 12:28 Pulse Rate 120 H 03/05/18 10:00 Respiratory Rate 18 03/05/18 10:00 Blood Pressure 100/56 L 03/05/18 10:00 O2 Sat by Pulse Oximetry (%) 94 L 03/04/18 20:32 CBC,CMP WBC 5.7 K/mm3 (4.0-10.0) 03/05/18 05:30 RBC 2.49 M/mm3 (4.00-5.60) L 03/05/18 05:30 Hgb 7.8 GM/dL (11.7-16.9) L 03/05/18 05:30 Hct 25.7 % (35.4-49) L 03/05/18 05:30 MCV 103.4 fl (80-96) H 03/05/18 05:30 MCH 31.4 pg (25.7-33.7) 03/05/18 05:30 MCHC 30.4 g/dl (32.0-35.9) L 03/05/18 05:30 RDW 17.3 % (11.9-15.9) H 03/05/18 05:30 Plt Count 189 K/MM3 (134-434) D 03/05/18 05:30 MPV 8.7 fl (7.5-11.1) 03/05/18 05:30 Absolute Neuts (auto) 4.2 K/mm3 (1.5-8.0) 03/05/18 05:30 Neutrophils % 73.1 % (42.8-82.8) 03/05/18 05:30 Neutrophils % (Manual) 42.8 % (42.8-82.8) D 03/05/18 05:30 Band Neutrophils % 23.5 % 03/05/18 05:30 Lymphocytes % 12.5 % (8-40) D 03/05/18 05:30 Lymphocytes % (Manual) 13.3 % (8-40) D 03/05/18 05:30 Monocytes % 14.1 % (3.8-10.2) H D 03/05/18 05:30 Monocytes % (Manual) 10 % (3.8-10.2) D 03/05/18 05:30 Eosinophils % 0.1 % (0-4.5) 03/05/18 05:30 Eosinophils % (Manual) 1.0 % (0-4.5) 03/05/18 05:30 Basophils % 0.2 % (0-2.0) 03/05/18 05:30 Basophils % (Manual) 0.0 % (0-2.0) 03/05/18 05:30 Myelocytes % (Man) 2 % (0-2) 03/05/18 05:30 Promyelocytes % (Man) 0 % (0-2) 03/05/18 05:30 Blast Cells % (Manual) 3 % (0-0) H 03/05/18 05:30 Nucleated RBC % 0 % (0-0) 03/05/18 05:30 Metamyelocytes 4 % (0-2) H 03/05/18 05:30 Hypochromia 0 03/05/18 05:30 Platelet Estimate Normal 03/05/18 05:30 Platelet Comment No clumping noted 03/03/18 22:24 Polychromasia 0 03/05/18 05:30 Anisocytosis 1+ 03/05/18 05:30 Microcytosis 1+ 03/05/18 05:30 Macrocytosis 1+ 03/05/18 05:30 Sodium 140 mmol/L (136-145) 03/05/18 05:30 Potassium 4.1 mmol/L (3.5-5.1) 03/05/18 05:30 Chloride 100 mmol/L (98-107) 03/05/18 05:30 Carbon Dioxide 32 mmol/L (21-32) 03/05/18 05:30 Anion Gap 9 MMOL/L (8-16) 03/05/18 05:30 BUN 47 mg/dL (7-18) H 03/05/18 05:30 Creatinine 1.8 mg/dL (0.55-1.3) H 03/05/18 05:30 Creat Clearance w eGFR 35.70 (>60) 03/05/18 05:30 Random Glucose 88 mg/dL (74-106) 03/05/18 05:30 Lactic Acid 2.1 mmol/L (0.4-2.0) H 03/03/18 22:24 Calcium 8.8 mg/dL (8.5-10.1) 03/05/18 05:30 Phosphorus 4.2 mg/dL (2.5-4.9) 03/05/18 05:30 Magnesium 2.4 mg/dL (1.8-2.4) 03/05/18 05:30 Total Bilirubin 0.7 mg/dL (0.2-1) 03/05/18 05:30 AST 181 U/L (15-37) H 03/05/18 05:30 ALT 27 U/L (13-61) 03/05/18 05:30 Alkaline Phosphatase 151 U/L (45-117) H 03/05/18 05:30 Creatine Kinase 53 IU/L (26-308) 03/03/18 22:21 Troponin I < 0.02 ng/ml (0.00-0.05) 03/03/18 22:21 Total Protein 5.1 g/dl (6.4-8.2) L 03/05/18 05:30 Albumin 2.1 g/dl (3.4-5.0) L 03/05/18 05:30 Current Medications Generic Name Dose Route Start Last Admin Trade Name Freq PRN Reason Stop Dose Admin Acetaminophen 1,000 mg 03/04/18 10:23 03/05/18 12:26 Ofirmev Injection - IVPB 1,000 mg Q6H PRN Administration PAIN LEVEL 1-5 Albuterol/Ipratropium 1 amp 03/04/18 22:45 03/05/18 11:29 Duoneb - NEB 1 amp RQID KELLEE Administration Sodium Chloride 1,000 mls @ 100 mls/hr 03/04/18 23:55 03/05/18 01:36 Normal Saline - IV 100 mls/hr ASDIR KELLEE Administration Amiodarone HCl/Dextrose 360 mg in 200 mls @ 16.667 mls/hr 03/04/18 23:45 01:29 Nexterone 360 Mg/200 Ml Bag IVPB 0.5 mg/min TITR KELLEE 16.667 mls/hr Administration Protocol 0.5 MG/MIN Metronidazole 500 mg in 100 mls @ 100 mls/hr 03/05/18 18:00 Flagyl 500mg Premixed Ivpb - IVPB Q8H-IV KELLEE Levofloxacin 250 mg in 50 mls @ 50 mls/hr 03/06/18 10:00 Levaquin 250 Mg Premixed Ivpb - IVPB DAILY KELLEE Protocol Morphine Sulfate 1 mg 03/04/18 10:18 03/04/18 13:39 Morphine Sulfate IVPUSH 1 mg Q4H PRN Administration PAIN LEVEL 6-10 Ondansetron HCl 4 mg 03/04/18 10:18 Zofran Injection IVPUSH Q6H PRN NAUSEA Constitutional: Yes: Calm, Other (NG tube in place) Eyes: Yes: Conjunctiva Clear HENT: Yes: Atraumatic Neck: Yes: Trachea Midline Cardiovascular: Yes: Regular Rate and Rhythm, Bruit Respiratory: Yes: CTA Bilaterally Gastrointestinal Inspection: Yes: Scars (healed long midline vertical and right flank incisions nontender LLQ colotomy hernia, empty bag) ...Auscultate: Yes: Normoactive Bowel Sounds ...Palpate: Yes: Soft, Other (nontender) ...Rectal Exam: Yes: Deferred (closed) Edema: No Neurological: Yes: Alert, Oriented Labs: CBC, BMP 03/05/18 05:30 03/05/18 05:30 INR, PTT INR 1.16 (0.83-1.09) H 03/03/18 22:24 Laboratory Tests 01/23/18 05:40 Tumor Marker AFP < 0.7 Carcinoembryonic Ag 43.5 H Problem List - Problems (1) SBO (small bowel obstruction) Assessment/Plan: As per Arcadio's wishes his management will be confined to conservative measures. Continue NG suctioning and IV fluids Code(s): K56.609 - UNSP INTESTNL OBST, UNSP TO PARTIAL VERSUS COMPLETE OBST (2) Atrial fibrillation Code(s): I48.91 - UNSPECIFIED ATRIAL FIBRILLATION Qualifiers: Atrial fibrillation type: chronic Qualified Code(s): I48.2 - Chronic atrial fibrillation (3) Colon cancer Code(s): C18.9 - MALIGNANT NEOPLASM OF COLON, UNSPECIFIED (4) Colon polyp Code(s): K63.5 - POLYP OF COLON (5) Colostomy hernia Code(s): K94.09 - OTHER COMPLICATIONS OF COLOSTOMY (6) Diverticulosis Code(s): K57.90 - DVRTCLOS OF INTEST, PART UNSP, W/O PERF OR ABSCESS W/O BLEED Assessment/Plan SBO due to ostomy hernia and refusing surgery and transfer to tertiary care center Continue NG suctioning Dr Rodriguez will be covering this weekend. Please kt him as needed
[2018-03-05 15:02] LABS: EPI CELLS RARE /HPF (FEW); GRANULAR CASTS 1 /lpf; URINE HYALINE CAST 34 /lpf; URINE MUCUS RARE
--- NOTE | 2018-03-05 15:45 | CON.CARD ---
Consult Consult Specialty:: cardio - History of Present Illness Chief Complaint: sbo History of Present Illness: 87 M here with SBO, who developed tachycardia/SVT yest evening with rapid HR and low bp--transferred to for amio gtt. 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 PPM deferred. --diast CHF pt refused cardio f/u since that time, insisting on only seeing pmd (dr katz) at present: states he felt sob earlier today which is not usual for him--relieved with nebulizer tx. denies cp, palpitations, presyncope other signif PMH: --liver lesions suspected met.s--declined further w/u --rectal Ca s/p resection 2004 --HTN --COPD - Past Medical History Cardio/Vascular: Yes: CAD (with coronary stenting 08/26), CHF, HTN, Hyperlipdemia , Other (h/o SVT) Pulmonary: Yes: COPD Gastrointestinal: Yes: Cancer (rectal cancer with abdominoperineal resection , permanent colostomy with hernia), Diverticulosis, GERD Renal/: Yes: BPH, Renal Calculi, Other (epididymitis) Rheumatology: Yes: Gout Dermatology: Yes: Squamous Cell (cancer of scalp) - Past Surgical History Past Surgical History: Yes: Colonoscopy, Colostomy, Hernia Repair (RIH and LIH) , Joint Replacement (right THR), Prostatectomy, Upper Endoscopy Additional Surgical History: open right ureteral stone extraction. 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[employer] History of Recent Travel: No Home Medications - Allergies Allergies/Adverse Reactions: Allergies Allergy/AdvReac Type Severity Reaction Status Date / Time No Known Allergies Allergy Verified 03/03/18 19:37 - Home Medications Home Medications: Ambulatory Orders Albuterol Sulfate [Proair Hfa] 8.5 gm IH PRN 01/22/18 Allopurinol 300 mg PO DAILY 01/22/18 Furosemide [Lasix] 40 mg PO DAILY 01/22/18 Gabapentin 200 mg PO HS 01/22/18 Metoprolol Tartrate [Lopressor -] 25 mg PO BID 01/22/18 Acetaminophen [Tylenol .Regular Strength -] 650 mg PO Q4H PRN tablet 02/01/18 Albuterol 2.5/Ipratropium 0.5 [Duoneb -] 1 amp NEB RQID amp 02/01/18 Clopidogrel Bisulfate [Plavix -] 75 mg PO DAILY #30 tablet 02/01/18 Tiotropium Penryn [Spiriva Respimat] 2 puff IH DAILY inhaler 02/01/18 Eszopiclone [Lunesta] 2 mg PO HS 03/04/18 Family Disease History - Family Disease History Family Disease History: CA: Father ( of kidney cancer), Daughter ( of cancer ? primary), Other: Mother (lived to ) Review of Systems - Review of Systems Constitutional: denies: Chills, Fever Eyes: denies: Eye Pain HENT: denies: Nasal Congestion Neck: denies: Stiffness Cardiovascular: denies: Palpitations Respiratory: denies: Orthopnea, PND Gastrointestinal: denies: Diarrhea, Rectal Bleeding Genitourinary: denies: Burning, Hematuria Musculoskeletal: denies: Muscle Pain Integumentary: denies: Rash Neurological: denies: Numbness, Seizure, Syncope Endocrine: denies: Excessive Sweating Hematology/Lymphatic: denies: Excessive Bleeding Vital Signs: Vital Signs Temperature 100.8 F H 03/05/18 12:28 Pulse Rate 120 H 03/05/18 10:00 Respiratory Rate 18 03/05/18 10:00 Blood Pressure 100/56 L 03/05/18 10:00 O2 Sat by Pulse Oximetry (%) 94 L 03/04/18 20:32 Constitutional: Yes: Well Nourished, No Distress Eyes: No: Sclera Icterus HENT: No: Nasal Congestion Neck: No: Decreased ROM Respiratory: Yes: CTA Bilaterally, Rales (minimal L base). No: Accessory Muscle Use Gastrointestinal: Yes: Normal Bowel Sounds. No: Distention, Hepatomegaly, Palpable Mass, Tenderness Cardiovascular: Yes: Regular Rate and Rhythm JVD: Yes Carotid Bruit: No PMI: Non-Displaced Heart Sounds: Yes: S1, S2. No: Gallop Murmur: No: Systolic Murmur, Diastolic Murmur Musculoskeletal: Yes: Other (No kyphosis) Extremities: No: Cold, Cyanosis Edema: No Peripheral Pulses: 2+ Left Carotid, 2+ Right Carotid, 2+ Left Doralis Pedis, 2+ Right Dorsalis Pedis Integumentary: No: Jaundice Neurological: Yes: Alert, Oriented (x3) Psychiatric: No: Agitated - Other Data Labs, Other Data: CBC, BMP 03/05/18 05:30 03/05/18 05:30 INR, PTT INR 1.16 (0.83-1.09) H 03/03/18 22:24 Laboratory Tests 01/25/18 03/03/18 03/03/18 05:30 22:21 22:24 WBC Hgb Plt Count INR 1.16 H Sodium Potassium Carbon Dioxide BUN Creatinine AST 40 H ALT Troponin I < 0.02 Albumin 03/03/18 03/05/18 03/05/18 22:24 05:30 05:30 WBC 5.7 Hgb 7.8 L Plt Count 189 D INR Sodium 140 Potassium 4.1 Carbon Dioxide 32 BUN 47 H Creatinine 1.8 H AST 39 H 181 H ALT 27 Troponin I Albumin 2.1 L Assessment/Plan ECG 03/03 (21:52): SVT. RBBB/LPFB. nonsp ST-Ts (RBBB/LPFB not new vs prior 2012) ECG #2 and 3: afib, no signif change otherwise CXR: vs 01/27/18, bibasilar changes partially resolved. residual fluid (+/- atx/ infiltrate) L base (images reviewed: no vascular redistribution pattern appreciated) Echo 02/04 (): nl LV/EF. nl RV. mod LAE. mild . mild-mod MR. tele: afib mostly HRs 100s-110s today, at times to 130s-140s PSVT: -known h/o AVNRT (s/p ablation), PAT (med managed--was on Multaq then (2010), brief PAFs -pt previously declined AC or further monitoring/cardio f/u -rapid HRs here with soft BPs--amio gtt started -infection w/u per hospitalist (low grade fever today) -will have to stop amio given mult liver lesions (suspected met.s) with mildly abnl AST at baseline which is acutely up today -will have to use digoxin and low dose metoprolol for HR control, as bp tolerates (multaq contraindicated in pt's with h/o CHF and similarly carries risks of worsening liver function) -AC not a consideration regardless of rhythm substrate given pt's longstanding preferences and currently very morbid state with baseline anemia and hi bleeding risk -no isch ECG changes, trop neg. observe. no ischemia w/u currently warranted. -LVEF preserved, no signif structural heart dz -given pt refusal of transfer to tertiary care center for definitive tx of his condition, and refusing w/u and tx of suspected metastatic cancer, with debilitated condition and evidence of impaired liver synthetic fxn on labs, seems prudent to have palliative care involved and clarify goals of care with pt sob, pleural effusions, ? acute HFpEF: -bilat effusions present 02/04, resolving on repeat here -today sob, ? acute diast chf triggered by rapid afib here. + JVD on exam -will stop IVF. -defer lasix as he is currently saturating well and without sob--reassess in am , f/u creatinine tomorrow KATH: -creat up here vs prior, and rising -IV fluids stopped given suspect active chf at present (as above) liver met.s, ? primary; hi LFTs, SBO: -per GI CAD: -no s/sx of ischemia -cont home med regimen when/if able to take po -observe HTN: -bp low here
--- NOTE | 2018-03-05 15:51 | PN ---
Progress Note, Physician Chief Complaint: Mr Ernandez says he is feeling better. No cp, sob, n/v. Expressed concern about not getting by mouth medications, explained he is getting medications he needs through the IV. - Current Medication List Current Medications: Active Medications Acetaminophen (Ofirmev Injection -) 1,000 mg IVPB Q6H PRN PRN Reason: PAIN LEVEL 1-5 Last Admin: 03/05/18 12:26 Dose: 1,000 mg Albuterol/Ipratropium (Duoneb -) 1 amp NEB RQID [facility] Last Admin: 03/05/18 11:29 Dose: 1 amp Sodium Chloride (Normal Saline -) 1,000 mls @ 100 mls/hr IV ASDIR [facility] Last Admin: 03/05/18 01:36 Dose: 100 mls/hr Amiodarone HCl/Dextrose (Nexterone 360 Mg/200 Ml Bag) 360 mg in 200 mls @ 16.667 mls/hr IVPB TITR [facility]; Protocol Last Admin: 03/05/18 01:29 Dose: 0.5 mg/min, 16.667 mls/hr Metronidazole (Flagyl 500mg Premixed Ivpb -) 500 mg in 100 mls @ 100 mls/hr IVPB Q8H-IV [facility] Levofloxacin (Levaquin 250 Mg Premixed Ivpb -) 250 mg in 50 mls @ 50 mls/hr IVPB DAILY [facility]; Protocol Morphine Sulfate (Morphine Sulfate) 1 mg IVPUSH Q4H PRN PRN Reason: PAIN LEVEL 6-10 Last Admin: 03/04/18 13:39 Dose: 1 mg Ondansetron HCl (Zofran Injection) 4 mg IVPUSH Q6H PRN PRN Reason: NAUSEA - Objective Vital Signs: Vital Signs Temperature 37.9 C H 03/05/18 14:15 Pulse Rate 120 H 03/05/18 14:15 Respiratory Rate 18 03/05/18 14:15 Blood Pressure 97/52 L 03/05/18 14:15 O2 Sat by Pulse Oximetry (%) 94 L 03/04/18 20:32 Constitutional: Yes: Well Nourished, No Distress, Calm Cardiovascular: Yes: Tachycardia. No: Pulse Irregular, Gallop, Murmur, Rub Respiratory: Yes: Regular, CTA Bilaterally. No: Rales, Rhonchi, Wheezes Gastrointestinal: Yes: Soft, Hypoactive Bowel Sounds, Tenderness, Other (NGT in place). No: Distention Extremities: Yes: WNL Edema: No Labs: CBC, BMP 03/05/18 05:30 03/05/18 05:30 INR, PTT INR 1.16 (0.83-1.09) H 03/03/18 22:24 Problem List - Problems (1) SBO (small bowel obstruction) Code(s): K56.609 - UNSP INTESTNL OBST, UNSP TO PARTIAL VERSUS COMPLETE OBST (2) KATH (acute kidney injury) Code(s): N17.9 - ACUTE KIDNEY FAILURE, UNSPECIFIED (3) AAA (abdominal aortic aneurysm) Code(s): I71.4 - ABDOMINAL AORTIC ANEURYSM, WITHOUT RUPTURE Qualifiers: Qualified Code(s): I71.4 - Abdominal aortic aneurysm, without rupture (4) Atrial fibrillation Code(s): I48.91 - UNSPECIFIED ATRIAL FIBRILLATION Qualifiers: Qualified Code(s): I48.2 - Chronic atrial fibrillation (5) COPD (chronic obstructive pulmonary disease) Code(s): J44.9 - CHRONIC OBSTRUCTIVE PULMONARY DISEASE, UNSPECIFIED (6) Chronic respiratory failure with hypoxia Code(s): J96.11 - CHRONIC RESPIRATORY FAILURE WITH HYPOXIA (7) Liver metastases Code(s): C78.7 - SECONDARY MALIG NEOPLASM OF LIVER AND INTRAHEPATIC BILE DUCT Assessment/Plan (1) SBO (small bowel obstruction) Assessment/Plan: -appreciate GI assistance -continue conservative management -continue NGT to LIWS and npo -hydration with IVF Code(s): K56.609 - UNSP INTESTNL OBST, UNSP TO PARTIAL VERSUS COMPLETE OBST (2) KATH (acute kidney injury) Assessment/Plan: -not improved -CT scan showing normal kidneys -check FENa labs Code(s): N17.9 - ACUTE KIDNEY FAILURE, UNSPECIFIED (3) AAA (abdominal aortic aneurysm) Assessment/Plan: -present Code(s): I71.4 - ABDOMINAL AORTIC ANEURYSM, WITHOUT RUPTURE Qualifiers: Presence of rupture: without rupture Qualified Code(s): I71.4 - Abdominal aortic aneurysm, without rupture (4) Atrial fibrillation Assessment/Plan: -tachycardic -placed on amiodarone gtt overnight -consult cardiology Code(s): I48.91 - UNSPECIFIED ATRIAL FIBRILLATION Qualifiers: Atrial fibrillation type: chronic Qualified Code(s): I48.2 - Chronic atrial fibrillation (5) COPD (chronic obstructive pulmonary disease) Assessment/Plan: -not in exacerbation Code(s): J44.9 - CHRONIC OBSTRUCTIVE PULMONARY DISEASE, UNSPECIFIED (6) Chronic respiratory failure with hypoxia Assessment/Plan: -continue oxygen Code(s): J96.11 - CHRONIC RESPIRATORY FAILURE WITH HYPOXIA (7) Liver metastases Assessment/Plan: -present Code(s): C78.7 - SECONDARY MALIG NEOPLASM OF LIVER AND INTRAHEPATIC BILE DUCT
[2018-03-05] MEDS ORDERED: DIGOXIN 0.25 MG TABLET (FP) PO ONE (16:48)
[2018-03-05] MEDS ORDERED: METOPROLOL TARTRATE 5 MG/5 ML VIAL IVPUSH PRN (16:50)
[2018-03-05] MEDS ORDERED: DIGOXIN 0.5 MG/2 ML AMPUL IVPUSH ONE (17:00)
[2018-03-05] MEDS: METOPROLOL TARTRATE 5 MG/5 ML VIAL IVPUSH SCH ×2 (17:18→21:43)
[2018-03-06] MEDS: METOPROLOL TARTRATE 5 MG/5 ML VIAL IVPUSH SCH ×6 (02:00→21:54)
[2018-03-06] MEDS: MORPHINE SULFATE 2 MG/ML VIAL IVPUSH PRN ×4 (02:58→20:12)
[2018-03-06 06:57] LABS: BASO % 0.1 % (0-2.0); HEMATOCRIT 24.1 % (35.4-49); HEMOGLOBIN 7.3 GM/dL (11.7-16.9); LYMPH % 5.9 % (8-40); MCH 31.3 pg (25.7-33.7); MCHC 30.1 g/dl (32.0-35.9); MEAN CELL VOLUME 103.9 fl (80-96); MEAN PLT VOLUME 8.7 fl (7.5-11.1); MONO % 14.7 % (3.8-10.2); NEUT % 79.3 % (42.8-82.8); PLATELET COUNT 139 K/MM3 (134-434); RBC 2.32 M/mm3 (4.00-5.60); RDW 17.8 % (11.9-15.9); WHITE BLOOD COUNT 4.9 K/mm3 (4.0-10.0)
[2018-03-06 07:47] LABS: ANION GAP 11 MMOL/L (8-16); BLOOD UREA NITROGEN 49 mg/dL (7-18); CALCIUM 8.6 mg/dL (8.5-10.1); CHLORIDE 105 mmol/L (98-107); CO2 29 mmol/L (21-32); CREATININE 1.4 mg/dL (0.55-1.3); GLUCOSE,RANDOM 90 mg/dL (74-106); MAGNESIUM 2.2 mg/dL (1.8-2.4); PHOSPHOROUS 3.2 mg/dL (2.5-4.9); POTASSIUM 3.3 mmol/L (3.5-5.1); SODIUM 144 mmol/L (136-145)
[2018-03-06] MEDS: ALBUTEROL SO4 2.5/IPRATROPIUM 0.5 INH SOL 3 ML VIAL.NEB. NEB SCH ×4 (08:45→20:14)
[2018-03-06] MEDS: ACETAMINOPHEN 1000 MG/100 ML VIAL (NON FORMULARY) IVPB PRN (09:15)
[2018-03-06] MEDS: DIGOXIN 0.5 MG/2 ML AMPUL IVPUSH SCH (10:14)
--- NOTE | 2018-03-06 11:16 | PN ---
Progress Note, Physician Chief Complaint: Mr Ernandez pulled out his NGT overnight. Complaining of being thirsty. No cp, sob, n/v. - Current Medication List Current Medications: Active Medications Acetaminophen (Ofirmev Injection -) 1,000 mg IVPB Q6H PRN PRN Reason: PAIN LEVEL 1-5 Last Admin: 03/06/18 09:15 Dose: 1,000 mg Albuterol/Ipratropium (Duoneb -) 1 amp NEB RQID [facility] Last Admin: 03/06/18 08:45 Dose: 1 amp Digoxin (Lanoxin Injection -) 0.125 mg IVPUSH DAILY [facility] Last Admin: 03/06/18 10:14 Dose: 0.125 mg Metronidazole (Flagyl 500mg Premixed Ivpb -) 500 mg in 100 mls @ 100 mls/hr IVPB Q8H-IV [facility] Last Admin: 03/06/18 10:14 Dose: 100 mls/hr Levofloxacin (Levaquin 250 Mg Premixed Ivpb -) 250 mg in 50 mls @ 50 mls/hr IVPB DAILY [facility]; Protocol Last Admin: 03/06/18 10:15 Dose: 50 mls/hr Metoprolol Tartrate (Lopressor Injection -) 5 mg IVPUSH Q4H-IV [facility] Last Admin: 03/06/18 05:01 Dose: 5 mg Metoprolol Tartrate (Lopressor Injection -) 5 mg IVPUSH Q1H PRN PRN Reason: TACHYCARDIA Morphine Sulfate (Morphine Sulfate) 1 mg IVPUSH Q4H PRN PRN Reason: PAIN LEVEL 6-10 Last Admin: 03/06/18 10:46 Dose: 1 mg Ondansetron HCl (Zofran Injection) 4 mg IVPUSH Q6H PRN PRN Reason: NAUSEA Pantoprazole Sodium (Protonix Iv) 40 mg IVPUSH DAILY [facility] - Objective Vital Signs: Vital Signs Temperature 530.5 C H 03/06/18 05:07 Pulse Rate 132 H 03/06/18 10:14 Respiratory Rate 20 03/06/18 05:07 Blood Pressure 95/59 L 03/06/18 05:07 O2 Sat by Pulse Oximetry (%) 95 03/05/18 21:00 Constitutional: Yes: Well Nourished, No Distress, Calm Cardiovascular: Yes: Tachycardia, Pulse Irregular. No: Gallop, Murmur, Rub Respiratory: Yes: Regular, CTA Bilaterally. No: Rales, Rhonchi, Wheezes Gastrointestinal: Yes: Normal Bowel Sounds, Soft, Other (stool in colostomy bag) . No: Distention, Tenderness Extremities: Yes: WNL Edema: No Labs: CBC, BMP 03/06/18 05:30 03/06/18 05:30 INR, PTT INR 1.16 (0.83-1.09) H 03/03/18 22:24 Problem List - Problems (1) SBO (small bowel obstruction) Code(s): K56.609 - UNSP INTESTNL OBST, UNSP TO PARTIAL VERSUS COMPLETE OBST (2) KATH (acute kidney injury) Code(s): N17.9 - ACUTE KIDNEY FAILURE, UNSPECIFIED (3) AAA (abdominal aortic aneurysm) Code(s): I71.4 - ABDOMINAL AORTIC ANEURYSM, WITHOUT RUPTURE Qualifiers: Presence of rupture: without rupture Qualified Code(s): I71.4 - Abdominal aortic aneurysm, without rupture (4) Atrial fibrillation Code(s): I48.91 - UNSPECIFIED ATRIAL FIBRILLATION Qualifiers: Atrial fibrillation type: chronic Qualified Code(s): I48.2 - Chronic atrial fibrillation (5) COPD (chronic obstructive pulmonary disease) Code(s): J44.9 - CHRONIC OBSTRUCTIVE PULMONARY DISEASE, UNSPECIFIED (6) Chronic respiratory failure with hypoxia Code(s): J96.11 - CHRONIC RESPIRATORY FAILURE WITH HYPOXIA (7) Liver metastases Code(s): C78.7 - SECONDARY MALIG NEOPLASM OF LIVER AND INTRAHEPATIC BILE DUCT Assessment/Plan (1) SBO (small bowel obstruction) Assessment/Plan: -appreciate GI assistance -appears resolving -NGT pulled out by patient -trial of clear liquids Code(s): K56.609 - UNSP INTESTNL OBST, UNSP TO PARTIAL VERSUS COMPLETE OBST (2) KATH (acute kidney injury) Assessment/Plan: -stable -? if uremia secondary to minimal GI bleed -will start protonix -continue IVF -clear liquids Code(s): N17.9 - ACUTE KIDNEY FAILURE, UNSPECIFIED (3) AAA (abdominal aortic aneurysm) Assessment/Plan: -present Code(s): I71.4 - ABDOMINAL AORTIC ANEURYSM, WITHOUT RUPTURE Qualifiers: Presence of rupture: without rupture Qualified Code(s): I71.4 - Abdominal aortic aneurysm, without rupture (4) Atrial fibrillation Assessment/Plan: -tachycardic -appreciate cardiology assistance -continue IV digoxin and metoprolol -defer to cardiology when can change to oral Code(s): I48.91 - UNSPECIFIED ATRIAL FIBRILLATION Qualifiers: Atrial fibrillation type: chronic Qualified Code(s): I48.2 - Chronic atrial fibrillation (5) COPD (chronic obstructive pulmonary disease) Assessment/Plan: -not in exacerbation Code(s): J44.9 - CHRONIC OBSTRUCTIVE PULMONARY DISEASE, UNSPECIFIED (6) Chronic respiratory failure with hypoxia Assessment/Plan: -continue oxygen Code(s): J96.11 - CHRONIC RESPIRATORY FAILURE WITH HYPOXIA (7) Liver metastases Assessment/Plan: -present Code(s): C78.7 - SECONDARY MALIG NEOPLASM OF LIVER AND INTRAHEPATIC BILE DUCT
[2018-03-06 11:54] LABS: ANISOCYTOSIS 1+; MACROCYTOSIS 1+; PLATELET ESTIMATE DECREASED
[2018-03-06] MEDS: PANTOPRAZOLE SODIUM 40 MG VIAL IVPUSH SCH (12:16)
--- NOTE | 2018-03-06 17:58 | PN ---
Progress Note, Physician History of Present Illness: No complaints Tele: Afib 125/min - Current Medication List Current Medications: Active Medications Acetaminophen (Ofirmev Injection -) 1,000 mg IVPB Q6H PRN PRN Reason: PAIN LEVEL 1-5 Last Admin: 03/06/18 09:15 Dose: 1,000 mg Albuterol/Ipratropium (Duoneb -) 1 amp NEB RQID [facility] Last Admin: 03/06/18 15:45 Dose: 1 amp Digoxin (Lanoxin Injection -) 0.125 mg IVPUSH DAILY [facility] Last Admin: 03/06/18 10:14 Dose: 0.125 mg Metronidazole (Flagyl 500mg Premixed Ivpb -) 500 mg in 100 mls @ 100 mls/hr IVPB Q8H-IV [facility] Last Admin: 03/06/18 17:12 Dose: 100 mls/hr Levofloxacin (Levaquin 250 Mg Premixed Ivpb -) 250 mg in 50 mls @ 50 mls/hr IVPB DAILY [facility]; Protocol Last Admin: 03/06/18 10:15 Dose: 50 mls/hr Metoprolol Tartrate (Lopressor Injection -) 5 mg IVPUSH Q4H-IV [facility] Last Admin: 03/06/18 17:12 Dose: 5 mg Metoprolol Tartrate (Lopressor Injection -) 5 mg IVPUSH Q1H PRN PRN Reason: TACHYCARDIA Morphine Sulfate (Morphine Sulfate) 1 mg IVPUSH Q4H PRN PRN Reason: PAIN LEVEL 6-10 Last Admin: 03/06/18 14:43 Dose: 1 mg Ondansetron HCl (Zofran Injection) 4 mg IVPUSH Q6H PRN PRN Reason: NAUSEA Pantoprazole Sodium (Protonix Iv) 40 mg IVPUSH DAILY [facility] Last Admin: 03/06/18 12:16 Dose: 40 mg - Objective Vital Signs: Vital Signs Temperature 98.0 F 03/06/18 14:00 Pulse Rate 112 H 03/06/18 17:12 Respiratory Rate 20 03/06/18 14:00 Blood Pressure 102/40 L 03/06/18 17:12 O2 Sat by Pulse Oximetry (%) 95 03/06/18 09:00 Constitutional: Yes: No Distress Eyes: Yes: WNL HENT: Yes: WNL Neck: Yes: WNL Cardiovascular: Yes: Pulse Irregular Respiratory: Yes: CTA Bilaterally Gastrointestinal: Yes: Normal Bowel Sounds Musculoskeletal: Yes: WNL Extremities: Yes: WNL Edema: No Labs: CBC, BMP 03/06/18 05:30 03/06/18 05:30 INR, PTT INR 1.16 (0.83-1.09) H 03/03/18 22:24 Assessment/Plan PSVT: -known h/o AVNRT (s/p ablation), PAT (med managed--was on Multaq then (2010), brief PAFs -pt previously declined AC or further monitoring/cardio f/u -rapid HRs here with soft BPs--amio gtt started -infection w/u per hospitalist (low grade fever today) -will have to stop amio given mult liver lesions (suspected met.s) with mildly abnl AST at baseline which is acutely up today -will have to use digoxin and low dose metoprolol for HR control, as bp tolerates (multaq contraindicated in pt's with h/o CHF and similarly carries risks of worsening liver function) -AC not a consideration regardless of rhythm substrate given pt's longstanding preferences and currently very morbid state with baseline anemia and hi bleeding risk -no isch ECG changes, trop neg. observe. no ischemia w/u currently warranted. -LVEF preserved, no signif structural heart dz -given pt refusal of transfer to tertiary care center for definitive tx of his condition, and refusing w/u and tx of suspected metastatic cancer, with debilitated condition and evidence of impaired liver synthetic fxn on labs, seems prudent to have palliative care involved and clarify goals of care with pt -03/06: Dig level 0.7 sob, pleural effusions, ? acute HFpEF: -bilat effusions present 02/04, resolving on repeat here -today sob, ? acute diast chf triggered by rapid afib here. + JVD on exam -IVR stopped. -defer lasix as he is currently saturating well and without sob--reassess in am , f/u creatinine tomorrow KATH: -03/06: creat trending down -Would contiunue to hold IVF liver met.s, ? primary; hi LFTs, SBO: -per GI CAD: -no s/sx of ischemia -cont home med regimen when/if able to take po -observe HTN: -bp low here
[2018-03-07] MEDS: METOPROLOL TARTRATE 5 MG/5 ML VIAL IVPUSH SCH ×6 (02:03→22:24)
[2018-03-07] MEDS: MORPHINE SULFATE 2 MG/ML VIAL IVPUSH PRN (03:49)
[2018-03-07 07:20] LABS: BASO % 0.2 % (0-2.0); HEMATOCRIT 26.9 % (35.4-49); HEMOGLOBIN 8.1 GM/dL (11.7-16.9); LYMPH % 7.9 % (8-40); MCH 31.5 pg (25.7-33.7); MCHC 30.1 g/dl (32.0-35.9); MEAN CELL VOLUME 104.7 fl (80-96); MEAN PLT VOLUME 8.9 fl (7.5-11.1); MONO % 9.9 % (3.8-10.2); PLATELET COUNT 144 K/MM3 (134-434); RBC 2.57 M/mm3 (4.00-5.60); RDW 17.6 % (11.9-15.9); WHITE BLOOD COUNT 7.2 K/mm3 (4.0-10.0)
[2018-03-07] MEDS: ALBUTEROL SO4 2.5/IPRATROPIUM 0.5 INH SOL 3 ML VIAL.NEB. NEB SCH ×4 (07:45→20:28)
[2018-03-07 08:10] LABS: ANION GAP 9 MMOL/L (8-16); BLOOD UREA NITROGEN 42 mg/dL (7-18); CALCIUM 9.4 mg/dL (8.5-10.1); CHLORIDE 104 mmol/L (98-107); CO2 30 mmol/L (21-32); CREATININE 1.1 mg/dL (0.55-1.3); GLUCOSE,RANDOM 101 mg/dL (74-106); MAGNESIUM 2.2 mg/dL (1.8-2.4); PHOSPHOROUS 2.4 mg/dL (2.5-4.9); SODIUM 144 mmol/L (136-145)
[2018-03-07] MEDS: ACETAMINOPHEN 1000 MG/100 ML VIAL (NON FORMULARY) IVPB PRN (09:35)
[2018-03-07] MEDS: PANTOPRAZOLE SODIUM 40 MG VIAL IVPUSH SCH (09:36)
[2018-03-07] MEDS: DIGOXIN 0.5 MG/2 ML AMPUL IVPUSH SCH (09:45)
--- NOTE | 2018-03-07 10:23 | PN ---
Progress Note, Physician History of Present Illness: Feels aggitated this AM NG tube in TEle: AFib - Current Medication List Current Medications: Active Medications Acetaminophen (Ofirmev Injection -) 1,000 mg IVPB Q6H PRN PRN Reason: PAIN LEVEL 1-5 Last Admin: 03/07/18 09:35 Dose: 1,000 mg Albuterol/Ipratropium (Duoneb -) 1 amp NEB RQID [facility] Last Admin: 03/07/18 07:45 Dose: 1 amp Digoxin (Lanoxin Injection -) 0.125 mg IVPUSH DAILY [facility] Last Admin: 03/07/18 09:45 Dose: 0.125 mg Metronidazole (Flagyl 500mg Premixed Ivpb -) 500 mg in 100 mls @ 100 mls/hr IVPB Q8H-IV [facility] Last Admin: 03/07/18 09:36 Dose: 100 mls/hr Levofloxacin (Levaquin 250 Mg Premixed Ivpb -) 250 mg in 50 mls @ 50 mls/hr IVPB DAILY [facility]; Protocol Last Admin: 03/07/18 09:46 Dose: 50 mls/hr Metoprolol Tartrate (Lopressor Injection -) 5 mg IVPUSH Q4H-IV [facility] Last Admin: 03/07/18 09:46 Dose: 5 mg Metoprolol Tartrate (Lopressor Injection -) 5 mg IVPUSH Q1H PRN PRN Reason: TACHYCARDIA Morphine Sulfate (Morphine Sulfate) 1 mg IVPUSH Q4H PRN PRN Reason: PAIN LEVEL 6-10 Last Admin: 03/07/18 03:49 Dose: 1 mg Ondansetron HCl (Zofran Injection) 4 mg IVPUSH Q6H PRN PRN Reason: NAUSEA Pantoprazole Sodium (Protonix Iv) 40 mg IVPUSH DAILY [facility] Last Admin: 03/07/18 09:36 Dose: 40 mg - Objective Vital Signs: Vital Signs Temperature 98.4 F 03/07/18 06:00 Pulse Rate 128 H 03/07/18 09:46 Respiratory Rate 20 03/07/18 06:00 Blood Pressure 103/64 03/07/18 09:46 O2 Sat by Pulse Oximetry (%) 95 03/06/18 21:00 Constitutional: Yes: Anxious Eyes: Yes: WNL HENT: Yes: WNL, Other (NGT in place) Cardiovascular: Yes: Pulse Irregular Respiratory: Yes: CTA Bilaterally Gastrointestinal: Yes: Normal Bowel Sounds Musculoskeletal: Yes: WNL Extremities: Yes: WNL Edema: No Labs: CBC, BMP 03/07/18 05:30 03/07/18 05:30 INR, PTT INR 1.16 (0.83-1.09) H 03/03/18 22:24 Assessment/Plan PSVT: -known h/o AVNRT (s/p ablation), PAT (med managed--was on Multaq then (2010), brief PAFs -pt previously declined AC or further monitoring/cardio f/u -rapid HRs here with soft BPs--amio gtt started -infection w/u per hospitalist -will have to stop amio given mult liver lesions (suspected met.s) with mildly abnl AST at baseline which is acutely up today -will have to use digoxin and low dose metoprolol for HR control, as bp tolerates (multaq contraindicated in pt's with h/o CHF and similarly carries risks of worsening liver function) -AC not a consideration regardless of rhythm substrate given pt's longstanding preferences and currently very morbid state with baseline anemia and hi bleeding risk -no isch ECG changes, trop neg. observe. no ischemia w/u currently warranted. -LVEF preserved, no signif structural heart dz -given pt refusal of transfer to tertiary care center for definitive tx of his condition, and refusing w/u and tx of suspected metastatic cancer, with debilitated condition and evidence of impaired liver synthetic fxn on labs, seems prudent to have palliative care involved and clarify goals of care with pt -03/06: Dig level 0.7 03/07: Remains in AF with rates 100s. Continue Dig and IV Metoprolol 5mg Q4h sob, pleural effusions, ? acute HFpEF: -bilat effusions present 02/04, resolving on repeat here -today sob, ? acute diast chf triggered by rapid afib here. + JVD on exam -IVR stopped. -defer lasix as he is currently saturating well and without sob--reassess in am , f/u creatinine tomorrow KATH: -03/06: creat trending down -Would contiunue to hold IVF liver met.s, ? primary; hi LFTs, SBO: -per GI CAD: -no s/sx of ischemia -cont home med regimen when/if able to take po -observe
[2018-03-07 10:42] LABS: ANISOCYTOSIS 1+; MACROCYTOSIS 1+; OVALOCYTE 1+; PLATELET ESTIMATE DECREASED
--- NOTE | 2018-03-07 11:38 | PN ---
Progress Note, Physician Chief Complaint: Mr Ernandez complains of abdominal pain. No cp or sob. - Current Medication List Current Medications: Active Medications Acetaminophen (Ofirmev Injection -) 1,000 mg IVPB Q6H PRN PRN Reason: PAIN LEVEL 1-5 Last Admin: 03/07/18 09:35 Dose: 1,000 mg Albuterol/Ipratropium (Duoneb -) 1 amp NEB RQID [facility] Last Admin: 03/07/18 07:45 Dose: 1 amp Digoxin (Lanoxin Injection -) 0.125 mg IVPUSH DAILY [facility] Last Admin: 03/07/18 09:45 Dose: 0.125 mg Metronidazole (Flagyl 500mg Premixed Ivpb -) 500 mg in 100 mls @ 100 mls/hr IVPB Q8H-IV [facility] Last Admin: 03/07/18 09:36 Dose: 100 mls/hr Levofloxacin (Levaquin 250 Mg Premixed Ivpb -) 250 mg in 50 mls @ 50 mls/hr IVPB DAILY [facility]; Protocol Last Admin: 03/07/18 09:46 Dose: 50 mls/hr Potassium Chloride (Potassium Chloride 10 Meq Premix Ivpb -) 10 meq in 100 mls @ 100 mls/hr IVPB Q60M [facility] Stop: 03/07/18 14:14 Metoprolol Tartrate (Lopressor Injection -) 5 mg IVPUSH Q4H-IV [facility] Last Admin: 03/07/18 09:46 Dose: 5 mg Metoprolol Tartrate (Lopressor Injection -) 5 mg IVPUSH Q1H PRN PRN Reason: TACHYCARDIA Morphine Sulfate (Morphine Sulfate) 1 mg IVPUSH Q4H PRN PRN Reason: PAIN LEVEL 6-10 Last Admin: 03/07/18 03:49 Dose: 1 mg Ondansetron HCl (Zofran Injection) 4 mg IVPUSH Q6H PRN PRN Reason: NAUSEA Pantoprazole Sodium (Protonix Iv) 40 mg IVPUSH DAILY [facility] Last Admin: 03/07/18 09:36 Dose: 40 mg - Objective Vital Signs: Vital Signs Temperature 36.9 C 03/07/18 06:00 Pulse Rate 128 H 03/07/18 09:46 Respiratory Rate 20 03/07/18 06:00 Blood Pressure 103/64 03/07/18 09:46 O2 Sat by Pulse Oximetry (%) 95 11/17/18 21:00 Constitutional: Yes: Well Nourished, No Distress, Calm Cardiovascular: Yes: Pulse Irregular. No: Tachycardia, Gallop, Murmur, Rub Respiratory: Yes: Regular, CTA Bilaterally. No: Rales, Rhonchi, Wheezes Gastrointestinal: Yes: Soft, Distention, Hypoactive Bowel Sounds (high pitched) , Tenderness. No: Normal Bowel Sounds Extremities: Yes: WNL Edema: No Labs: CBC, BMP 03/07/18 05:30 03/07/18 05:30 INR, PTT INR 1.16 (0.83-1.09) H 03/03/18 22:24 Problem List - Problems (1) SBO (small bowel obstruction) Code(s): K56.609 - UNSP INTESTNL OBST, UNSP TO PARTIAL VERSUS COMPLETE OBST (2) KATH (acute kidney injury) Code(s): N17.9 - ACUTE KIDNEY FAILURE, UNSPECIFIED (3) AAA (abdominal aortic aneurysm) Code(s): I71.4 - ABDOMINAL AORTIC ANEURYSM, WITHOUT RUPTURE Qualifiers: Presence of rupture: without rupture Qualified Code(s): I71.4 - Abdominal aortic aneurysm, without rupture (4) Atrial fibrillation Code(s): I48.91 - UNSPECIFIED ATRIAL FIBRILLATION Qualifiers: Atrial fibrillation type: chronic Qualified Code(s): I48.2 - Chronic atrial fibrillation (5) COPD (chronic obstructive pulmonary disease) Code(s): J44.9 - CHRONIC OBSTRUCTIVE PULMONARY DISEASE, UNSPECIFIED (6) Chronic respiratory failure with hypoxia Code(s): J96.11 - CHRONIC RESPIRATORY FAILURE WITH HYPOXIA (7) Liver metastases Code(s): C78.7 - SECONDARY MALIG NEOPLASM OF LIVER AND INTRAHEPATIC BILE DUCT Assessment/Plan (1) SBO (small bowel obstruction) Assessment/Plan: -appreciate GI assistance -did not tolerate clear liquids -npo -ngt replaced Code(s): K56.609 - UNSP INTESTNL OBST, UNSP TO PARTIAL VERSUS COMPLETE OBST (2) KATH (acute kidney injury) Assessment/Plan: -FENa pre-renal -improving -continue IVF Code(s): N17.9 - ACUTE KIDNEY FAILURE, UNSPECIFIED (3) AAA (abdominal aortic aneurysm) Assessment/Plan: -present Code(s): I71.4 - ABDOMINAL AORTIC ANEURYSM, WITHOUT RUPTURE Qualifiers: Presence of rupture: without rupture Qualified Code(s): I71.4 - Abdominal aortic aneurysm, without rupture (4) Atrial fibrillation Assessment/Plan: -cardiology note reviewed -continue IV digoxin and metoprolol Code(s): I48.91 - UNSPECIFIED ATRIAL FIBRILLATION Qualifiers: Atrial fibrillation type: chronic Qualified Code(s): I48.2 - Chronic atrial fibrillation (5) COPD (chronic obstructive pulmonary disease) Assessment/Plan: -not in exacerbation Code(s): J44.9 - CHRONIC OBSTRUCTIVE PULMONARY DISEASE, UNSPECIFIED (6) Chronic respiratory failure with hypoxia Assessment/Plan: -continue oxygen Code(s): J96.11 - CHRONIC RESPIRATORY FAILURE WITH HYPOXIA (7) Liver metastases Assessment/Plan: -present Code(s): C78.7 - SECONDARY MALIG NEOPLASM OF LIVER AND INTRAHEPATIC BILE DUCT
[2018-03-07] MEDS: KCL 10 MEQ IVPB 10 MEQ/100 ML INFUS.BAG IVPB SCH ×3 (11:46→15:22)
--- NOTE | 2018-03-07 14:42 | CON.ID ---
Consult Consult Specialty:: infectious disease Referred by:: hospitalist Reason for Consultation:: fever - History of Present Illness Chief Complaint: vomiting, constipation History of Present Illness: 87 yo man recently hospitalized 01/22 to 02/01 with cough/pneumonia/bronchitis- treated with ceftriaxone he was found to have liver mets and declined further workup he has a history of prior rectal cancer and has a colostomy he was found to have a small bowel obstruction at the level of ostomy hernia he has refused surgery ngt removed and then replaced no cough, no other complaints, abdominal pain has resolved - Past Medical History Cardio/Vascular: Yes: CAD (with coronary stenting 08/26), CHF, HTN, Hyperlipdemia , Other (h/o SVT) Pulmonary: Yes: COPD Gastrointestinal: Yes: Cancer (rectal cancer with abdominoperineal resection , permanent colostomy with hernia), Diverticulosis, GERD Renal/: Yes: BPH, Renal Calculi, Other (epididymitis) Rheumatology: Yes: Gout Dermatology: Yes: Squamous Cell (cancer of scalp) - Past Surgical History Past Surgical History: Yes: Colonoscopy, Colostomy, Hernia Repair (RIH and LIH) , Joint Replacement (right THR), Prostatectomy, Upper Endoscopy Additional Surgical History: open right ureteral stone extraction. 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[employer] History of Recent Travel: No Home Medications - Allergies Allergies/Adverse Reactions: Allergies Allergy/AdvReac Type Severity Reaction Status Date / Time No Known Allergies Allergy Verified 03/03/18 19:37 - Home Medications Home Medications: Ambulatory Orders Albuterol Sulfate [Proair Hfa] 8.5 gm IH PRN 01/22/18 Allopurinol 300 mg PO DAILY 01/22/18 Furosemide [Lasix] 40 mg PO DAILY 01/22/18 Gabapentin 200 mg PO HS 01/22/18 Metoprolol Tartrate [Lopressor -] 25 mg PO BID 01/22/18 Acetaminophen [Tylenol .Regular Strength -] 650 mg PO Q4H PRN tablet 02/01/18 Albuterol 2.5/Ipratropium 0.5 [Duoneb -] 1 amp NEB RQID amp 02/01/18 Clopidogrel Bisulfate [Plavix -] 75 mg PO DAILY #30 tablet 02/01/18 Tiotropium [place] [Spiriva Respimat] 2 puff IH DAILY inhaler 02/01/18 Eszopiclone [Lunesta] 2 mg PO HS 03/04/18 Family Disease History - Family Disease History Family Disease History: CA: Father ( of kidney cancer), Daughter ( of cancer ? primary), Other: Mother (lived to ) Review of Systems - Review of Systems Constitutional: reports: No Symptoms. denies: Chills, Diaphoresis, Fever Eyes: reports: No Symptoms HENT: reports: No Symptoms Neck: reports: No Symptoms Cardiovascular: reports: No Symptoms. denies: Chest Pain Respiratory: reports: No Symptoms. denies: Cough Gastrointestinal: reports: Constipation, Vomiting Genitourinary: reports: No Symptoms Physical Exam Vital Signs: Vital Signs Temperature 98.2 F 03/07/18 14:00 Pulse Rate 104 H 03/07/18 14:00 Respiratory Rate 20 03/07/18 14:00 Blood Pressure 99/62 03/07/18 14:00 O2 Sat by Pulse Oximetry (%) 95 03/07/18 09:00 Labs: CBC, BMP 03/07/18 05:30 03/07/18 05:30 Imaging - Results Chest X-ray: Report Reviewed, Image Reviewed X-ray: Report Reviewed Problem List - Problems (1) Fever Code(s): R50.9 - FEVER, UNSPECIFIED (2) SBO (small bowel obstruction) Code(s): K56.609 - UNSP INTESTNL OBST, UNSP TO PARTIAL VERSUS COMPLETE OBST (3) Liver metastases Code(s): C78.7 - SECONDARY MALIG NEOPLASM OF LIVER AND INTRAHEPATIC BILE DUCT Assessment/Plan suspect low grade fever and leukocytosis on admission due to SBO but now with cxray findings of basilar infiltrates ?aspiration from vomiting due to SBO fever and leukocytosis have resolved day #3 levaquin/flagyl would continue for possible pneumonia- doubt UTI- low colony count patient is asymptomatic SBO-refusing surgery, management per GI/PMD
[2018-03-07] MEDS: D5-1/2NS+40 MEQ KCL - 40 MEQ/1,000 ML INFUS.BAG IV SCH (15:22)
[2018-03-08] MEDS: METOPROLOL TARTRATE 5 MG/5 ML VIAL IVPUSH SCH ×6 (03:12→23:05)
[2018-03-08] MEDS: MORPHINE SULFATE 2 MG/ML VIAL IVPUSH PRN ×3 (06:33→14:58)
[2018-03-08 06:57] LABS: BASO % 0.2 % (0-2.0); EOS % 0.2 % (0-4.5); HEMATOCRIT 27.4 % (35.4-49); HEMOGLOBIN 8.1 GM/dL (11.7-16.9); LYMPH % 9.1 % (8-40); MCH 31.4 pg (25.7-33.7); MCHC 29.6 g/dl (32.0-35.9); MEAN CELL VOLUME 106.2 fl (80-96); MEAN PLT VOLUME 8.9 fl (7.5-11.1); MONO % 9.7 % (3.8-10.2); NEUT % 80.8 % (42.8-82.8); PLATELET COUNT 142 K/MM3 (134-434); RBC 2.58 M/mm3 (4.00-5.60); RDW 17.7 % (11.9-15.9); WHITE BLOOD COUNT 7.3 K/mm3 (4.0-10.0)
[2018-03-08] MEDS: ALBUTEROL SO4 2.5/IPRATROPIUM 0.5 INH SOL 3 ML VIAL.NEB. NEB SCH ×4 (07:11→20:15)
[2018-03-08 07:49] LABS: ANION GAP 7 MMOL/L (8-16); BLOOD UREA NITROGEN 32 mg/dL (7-18); CALCIUM 9.5 mg/dL (8.5-10.1); CHLORIDE 106 mmol/L (98-107); CO2 32 mmol/L (21-32); CREATININE 0.8 mg/dL (0.55-1.3); GLUCOSE,RANDOM 106 mg/dL (74-106); MAGNESIUM 2.1 mg/dL (1.8-2.4); PHOSPHOROUS 1.6 mg/dL (2.5-4.9); POTASSIUM 3.4 mmol/L (3.5-5.1); SODIUM 144 mmol/L (136-145)
--- NOTE | 2018-03-08 10:12 | PN ---
Progress Note, Physician Chief Complaint: sob History of Present Illness: sob continues off and on--neb tx's help. no palitations, cp, syncope no cigs - Current Medication List Current Medications: Active Medications Acetaminophen (Ofirmev Injection -) 1,000 mg IVPB Q6H PRN PRN Reason: PAIN LEVEL 1-5 Last Admin: 03/07/18 09:35 Dose: 1,000 mg Albuterol/Ipratropium (Duoneb -) 1 amp NEB RQID [facility] Last Admin: 03/08/18 07:11 Dose: 1 amp Digoxin (Lanoxin Injection -) 0.125 mg IVPUSH DAILY [facility] Last Admin: 03/07/18 09:45 Dose: 0.125 mg Metronidazole (Flagyl 500mg Premixed Ivpb -) 500 mg in 100 mls @ 100 mls/hr IVPB Q8H-IV [facility] Last Admin: 03/08/18 03:12 Dose: 100 mls/hr Levofloxacin (Levaquin 250 Mg Premixed Ivpb -) 250 mg in 50 mls @ 50 mls/hr IVPB DAILY [facility]; Protocol Last Admin: 03/07/18 09:46 Dose: 50 mls/hr Dextrose/Sodium Chloride (D5-1/2ns+40 Meq Kcl -) 40 meq in 1,000 mls @ 75 mls/ hr IV ASDIR [facility] Last Admin: 03/07/18 15:22 Dose: 75 mls/hr Methyl Salicylate (João-De La O -) 1 applic TP DAILY [facility] Metoprolol Tartrate (Lopressor Injection -) 5 mg IVPUSH Q4H-IV [facility] Last Admin: 03/08/18 06:34 Dose: 5 mg Metoprolol Tartrate (Lopressor Injection -) 5 mg IVPUSH Q1H PRN PRN Reason: TACHYCARDIA Morphine Sulfate (Morphine Sulfate) 1 mg IVPUSH Q4H PRN PRN Reason: PAIN LEVEL 6-10 Last Admin: 03/08/18 06:33 Dose: 1 mg Ondansetron HCl (Zofran Injection) 4 mg IVPUSH Q6H PRN PRN Reason: NAUSEA Pantoprazole Sodium (Protonix Iv) 40 mg IVPUSH DAILY [facility] Last Admin: 03/07/18 09:36 Dose: 40 mg - Objective Vital Signs: Vital Signs Temperature 97.3 F L 03/08/18 05:00 Pulse Rate 92 H 11/19/18 09:00 Respiratory Rate 18 03/08/18 09:00 Blood Pressure 119/60 03/08/18 09:00 O2 Sat by Pulse Oximetry (%) 98 03/08/18 09:00 Constitutional: Yes: No Distress, Calm Eyes: No: Sclera Icterus HENT: No: Nasal Congestion Cardiovascular: Yes: Pulse Irregular, JVD, S1, S2, Other (PMI non diplaced). No : Gallop, Murmur Respiratory: Yes: CTA Bilaterally, Diminished (bases). No: Accessory Muscle Use Gastrointestinal: Yes: Normal Bowel Sounds, Soft. No: Tenderness Musculoskeletal: Yes: Other (No kyphosis) Extremities: No: Cold Edema: No Integumentary: No: Jaundice Neurological: Yes: Alert, Oriented (x3) Psychiatric: No: Agitated Labs: CBC, BMP 03/08/18 05:30 03/08/18 05:30 INR, PTT INR 1.16 (0.83-1.09) H 03/03/18 22:24 Assessment/Plan ECG 03/03 (21:52): SVT. RBBB/LPFB. nonsp ST-Ts (RBBB/LPFB not new vs prior 2012) ECG #2 and 3: afib, no signif change otherwise CXR: vs 01/27/18, bibasilar changes partially resolved. residual fluid (+/- atx/ infiltrate) L base (images reviewed: no vascular redistribution pattern appreciated) CXR repeat 03/07: incr effusions Echo 02/04 (): nl LV/EF. nl RV. mod LAE. mild . mild-mod MR. tele: AF, HRs 90s-110s PSVT, PAF: -known h/o AVNRT (s/p ablation), PAT (med managed--was on Multaq then (2010), brief PAFs -pt previously declined AC or further monitoring/cardio f/u -rapid HRs here with soft BPs. -no amio given mult liver lesions (suspected met.s) with abnormal LFTs ( including decreased synthetic function). ditto for multaq. -HRs thus far improved and reasonable on digoxin and low dose metoprolol. low BPs tolerating. dig level stable. -AC not a consideration regardless of rhythm substrate given pt's longstanding preferences and currently very morbid state with baseline anemia and hi bleed risk -LVEF preserved, no signif structural heart dz -given pt refusal of transfer to tertiary care center for definitive tx of his condition, and refusing w/u and tx of suspected metastatic cancer, with debilitated condition and evidence of impaired liver synthetic fxn on labs, seems prudent to have palliative care involved and clarify goals of care with pt sob, pleural effusions, ? acute HFpEF: -bilat effusions present 02/04, resolving on repeat here -JVD noted on exam here, s/p IVF administration. -lasix previously held for KATH, renal fxn now normalized. -CXR 03/07 with signif increased effusions, ? mild pulm edema--? 3rd spacing from hypoalb state -start lasix: 40 iv x1 today--if renal fxn stable in am, and no hypotension today, will plan to possibly increase dose to bid tomorrow KATH: -? etiology initially. -intravasc depleted (poor PO intake, low albumin/3rd spacing?) -now improved. monitor trend liver met.s, ? primary; hi LFTs, SBO: -per GI CAD: -no s/sx of ischemia -cont home med regimen when/if able to take po -observe HTN: -bp low here
[2018-03-08 10:54] LABS: ANISOCYTOSIS 1+; MACROCYTOSIS 1+; PLATELET ESTIMATE DECREASED
[2018-03-08] MEDS: METHYL SALICYLATE/MENTHOL OINT 30 GM TUBE TP SCH (11:31)
[2018-03-08] MEDS: DIGOXIN 0.5 MG/2 ML AMPUL IVPUSH SCH (11:32)
[2018-03-08] MEDS: PANTOPRAZOLE SODIUM 40 MG VIAL IVPUSH SCH (11:32)
[2018-03-08] MEDS ORDERED: FUROSEMIDE 40 MG/4 ML INJECTABLE VIAL IVPUSH ONE (12:24)
--- NOTE | 2018-03-08 12:39 | PN ---
Physical Exam: SUBJECTIVE: Patient seen and examined at bedside. No overnight events. No new complaints. Continues to have some abdominal pain. Denies CP,MILLS,palpitations, fever or chills. OBJECTIVE: Vital Signs Period Temp Pulse Resp BP Sys/Lepe Pulse Ox Last 24 Hr 97.3 F-98.2 F 92-122 18-20 98-119/50-64 98-100 GENERAL: The patient is awake, alert, and fully oriented, in no acute distress. HEAD: Normal with no signs of trauma. EYES: PERRL, extraocular movements intact, sclera anicteric, conjunctiva clear. No ptosis. ENT: Ears normal, nares patent, oropharynx clear without exudates, moist mucous membranes. NECK: Trachea midline, full range of motion, supple. LUNGS: Breath sounds equal, clear to auscultation bilaterally, no wheezes, no crackles, no accessory muscle use. HEART: Regular rate and rhythm, S1, S2 without murmur, rub or gallop. ABDOMEN: Soft, nontender, nondistended, normoactive bowel sounds, no guarding, no rebound, no hepatosplenomegaly, no masses. EXTREMITIES: 2+ pulses, warm, well-perfused, no edema. NEUROLOGICAL: Cranial nerves II through XII grossly intact. Normal speech, gait not observed. PSYCH: Normal mood, normal affect. SKIN: Warm, dry, normal turgor, no rashes or lesions noted Laboratory Results - last 24 hr 03/08/18 03/08/18 05:30 05:30 WBC 7.3 RBC 2.58 L Hgb 8.1 L Hct 27.4 L MCV 106.2 H MCH 31.4 MCHC 29.6 L RDW 17.7 H Plt Count 142 MPV 8.9 Absolute Neuts (auto) 5.9 Neutrophils % 80.8 Neutrophils % (Manual) 77.8 Band Neutrophils % 0.0 Lymphocytes % 9.1 Lymphocytes % (Manual) 10.1 Monocytes % 9.7 Monocytes % (Manual) 9 Eosinophils % 0.2 D Eosinophils % (Manual) 0.0 Basophils % 0.2 Basophils % (Manual) 0.0 Myelocytes % (Man) 2 Promyelocytes % (Man) 0 Blast Cells % (Manual) 0 Nucleated RBC % 0 Metamyelocytes 1 D Hypochromia 0 Platelet Estimate Decreased Polychromasia 0 Poikilocytosis 0 Anisocytosis 1+ Microcytosis 0 Macrocytosis 1+ Sodium 144 Potassium 3.4 L Chloride 106 Carbon Dioxide 32 Anion Gap 7 L BUN 32 H Creatinine 0.8 Creat Clearance w eGFR > 60 Random Glucose 106 Calcium 9.5 Phosphorus 1.6 L Magnesium 2.1 Digoxin 0.83 Active Medications Generic Name Dose Route Start Last Admin Trade Name Freq PRN Reason Stop Dose Admin Acetaminophen 1,000 mg 03/04/18 10:23 03/07/18 09:35 Ofirmev Injection - IVPB 1,000 mg Q6H PRN Administration PAIN LEVEL 1-5 Albuterol/Ipratropium 1 amp 03/04/18 22:45 03/08/18 11:54 Duoneb - NEB 1 amp RQID [facility] Administration Digoxin 0.125 mg 03/06/18 10:00 03/08/18 11:32 Lanoxin Injection - IVPUSH 0.125 mg DAILY [facility] Administration Furosemide 40 mg 03/08/18 12:24 Lasix Injection - IVPUSH 03/08/18 12:25 ONCE ONE Metronidazole 500 mg in 100 mls @ 100 mls/hr 03/05/18 18:00 03/08/18 11:31 Flagyl 500mg Premixed Ivpb - IVPB 100 mls/hr Q8H-IV [facility] Administration Levofloxacin 250 mg in 50 mls @ 50 mls/hr 03/06/18 10:00 03/08/18 11:31 Levaquin 250 Mg Premixed Ivpb - IVPB 50 mls/hr DAILY [facility] Administration Protocol Dextrose/Sodium Chloride 40 meq in 1,000 mls @ 75 mls/hr 03/07/18 11:45 03/07 15:22 D5-1/2ns+40 Meq Kcl - IV 75 mls/hr ASDIR [facility] Administration Methyl Salicylate 1 applic 03/08/18 10:00 03/08/18 11:31 João-De La O - TP 1 applic DAILY [facility] Administration Metoprolol Tartrate 5 mg 03/05/18 18:00 03/08/18 06:34 Lopressor Injection - IVPUSH 5 mg Q4H-IV [facility] Administration Metoprolol Tartrate 5 mg 03/05/18 16:50 Lopressor Injection - IVPUSH Q1H PRN TACHYCARDIA Morphine Sulfate 1 mg 03/04/18 10:18 03/08/18 10:23 Morphine Sulfate IVPUSH 1 mg Q4H PRN Administration PAIN LEVEL 6-10 Ondansetron HCl 4 mg 03/04/18 10:18 Zofran Injection IVPUSH Q6H PRN NAUSEA Pantoprazole Sodium 40 mg 03/06/18 10:45 03/08/18 11:32 Protonix Iv IVPUSH 40 mg DAILY [facility] Administration ASSESSMENT/PLAN: 87 year old male who comes in with loss of appetite, constipation, and vomiting. He says that he was doing well until approximately 2-3 days prior to admission found to have sbo and admitted to telemtry for further management. Problem List - Problems (1) SBO (small bowel obstruction) Assessment/Plan: patient does not want surgery * patient is NPO * NGT to Low intermittent wall suction. * Appreciated GI consult. (2) PSVT (paroxysmal supraventricular tachycardia) (3) Atrial fibrillation Assessment/Plan: Will continue digoxin and metoprolol for rate control * Not on AC at this time/ (4) COPD (chronic obstructive pulmonary disease) Assessment/Plan: not in acute exacerbation. * continue supplemental o2 prn. * maintain spo2 >90% * (5) Liver lesion Assessment/Plan: may represent mets from colon ca * patient wants conservative management. (6) KATH (acute kidney injury) Assessment/Plan: -resolved Visit type - Emergency Visit Emergency Visit: Yes ED Registration Date: 03/04/18 Care time: The patient presented to the Emergency Department on the above date and was hospitalized for further evaluation of their emergent condition. - New Patient This patient is new to me today: Yes Date on this admission: 03/09/18 - Critical Care Critical Care patient: No
--- NOTE | 2018-03-08 12:51 | PN ---
Progress Note, Physician Chief Complaint: Mr Ernandez complains of abdominal pain. No cp or sob. - Current Medication List Current Medications: Active Medications Acetaminophen (Ofirmev Injection -) 1,000 mg IVPB Q6H PRN PRN Reason: PAIN LEVEL 1-5 Last Admin: 03/07/18 09:35 Dose: 1,000 mg Albuterol/Ipratropium (Duoneb -) 1 amp NEB RQID [facility] Last Admin: 03/08/18 11:54 Dose: 1 amp Digoxin (Lanoxin Injection -) 0.125 mg IVPUSH DAILY [facility] Last Admin: 03/08/18 11:32 Dose: 0.125 mg Metronidazole (Flagyl 500mg Premixed Ivpb -) 500 mg in 100 mls @ 100 mls/hr IVPB Q8H-IV [facility] Last Admin: 03/08/18 11:31 Dose: 100 mls/hr Levofloxacin (Levaquin 250 Mg Premixed Ivpb -) 250 mg in 50 mls @ 50 mls/hr IVPB DAILY [facility]; Protocol Last Admin: 03/08/18 11:31 Dose: 50 mls/hr Dextrose/Sodium Chloride (D5-1/2ns+40 Meq Kcl -) 40 meq in 1,000 mls @ 75 mls/ hr IV ASDIR [facility] Last Admin: 03/07/18 15:22 Dose: 75 mls/hr Methyl Salicylate (João-De La O -) 1 applic TP DAILY [facility] Last Admin: 03/08/18 11:31 Dose: 1 applic Metoprolol Tartrate (Lopressor Injection -) 5 mg IVPUSH Q4H-IV [facility] Last Admin: 03/08/18 06:34 Dose: 5 mg Metoprolol Tartrate (Lopressor Injection -) 5 mg IVPUSH Q1H PRN PRN Reason: TACHYCARDIA Morphine Sulfate (Morphine Sulfate) 1 mg IVPUSH Q4H PRN PRN Reason: PAIN LEVEL 6-10 Last Admin: 03/08/18 10:23 Dose: 1 mg Ondansetron HCl (Zofran Injection) 4 mg IVPUSH Q6H PRN PRN Reason: NAUSEA Pantoprazole Sodium (Protonix Iv) 40 mg IVPUSH DAILY [facility] Last Admin: 03/08/18 11:32 Dose: 40 mg - Objective Vital Signs: Vital Signs Temperature 36.3 C L 03/08/18 05:00 Pulse Rate 92 H 11/19/18 09:00 Respiratory Rate 18 03/08/18 09:00 Blood Pressure 119/60 03/08/18 09:00 O2 Sat by Pulse Oximetry (%) 98 03/08/18 09:00 Constitutional: Yes: Well Nourished, No Distress, Calm Cardiovascular: Yes: Regular Rate and Rhythm. No: Gallop, Murmur, Rub Respiratory: Yes: Regular, CTA Bilaterally. No: Rales, Rhonchi, Wheezes Gastrointestinal: Yes: Hypoactive Bowel Sounds, Tenderness, Other (NGT in place) . No: Distention Extremities: Yes: Erythema Edema: Yes Edema: LLE: 2+, RLE: 2+ Labs: CBC, BMP 03/08/18 05:30 03/08/18 05:30 INR, PTT INR 1.16 (0.83-1.09) H 03/03/18 22:24 Problem List - Problems (1) SBO (small bowel obstruction) Code(s): K56.609 - UNSP INTESTNL OBST, UNSP TO PARTIAL VERSUS COMPLETE OBST (2) KATH (acute kidney injury) Code(s): N17.9 - ACUTE KIDNEY FAILURE, UNSPECIFIED (3) AAA (abdominal aortic aneurysm) Code(s): I71.4 - ABDOMINAL AORTIC ANEURYSM, WITHOUT RUPTURE Qualifiers: Presence of rupture: without rupture Qualified Code(s): I71.4 - Abdominal aortic aneurysm, without rupture (4) Atrial fibrillation Code(s): I48.91 - UNSPECIFIED ATRIAL FIBRILLATION Qualifiers: Atrial fibrillation type: chronic Qualified Code(s): I48.2 - Chronic atrial fibrillation (5) COPD (chronic obstructive pulmonary disease) Code(s): J44.9 - CHRONIC OBSTRUCTIVE PULMONARY DISEASE, UNSPECIFIED Qualifiers: COPD type: unspecified COPD Qualified Code(s): J44.9 - Chronic obstructive pulmonary disease, unspecified (6) Chronic respiratory failure with hypoxia Code(s): J96.11 - CHRONIC RESPIRATORY FAILURE WITH HYPOXIA (7) Liver metastases Code(s): C78.7 - SECONDARY MALIG NEOPLASM OF LIVER AND INTRAHEPATIC BILE DUCT Assessment/Plan (1) SBO (small bowel obstruction) Assessment/Plan: -continue ngt to LIWS -continue npo -case d/w Dr Goodwin Code(s): K56.609 - UNSP INTESTNL OBST, UNSP TO PARTIAL VERSUS COMPLETE OBST (2) KATH (acute kidney injury) Assessment/Plan: -resolved Code(s): N17.9 - ACUTE KIDNEY FAILURE, UNSPECIFIED (3) AAA (abdominal aortic aneurysm) Assessment/Plan: -present Code(s): I71.4 - ABDOMINAL AORTIC ANEURYSM, WITHOUT RUPTURE Qualifiers: Presence of rupture: without rupture Qualified Code(s): I71.4 - Abdominal aortic aneurysm, without rupture (4) Atrial fibrillation Assessment/Plan: -cardiology note reviewed -continue IV digoxin and metoprolol Code(s): I48.91 - UNSPECIFIED ATRIAL FIBRILLATION Qualifiers: Atrial fibrillation type: chronic Qualified Code(s): I48.2 - Chronic atrial fibrillation (5) COPD (chronic obstructive pulmonary disease) Assessment/Plan: -not in exacerbation Code(s): J44.9 - CHRONIC OBSTRUCTIVE PULMONARY DISEASE, UNSPECIFIED (6) Chronic respiratory failure with hypoxia Assessment/Plan: -continue oxygen Code(s): J96.11 - CHRONIC RESPIRATORY FAILURE WITH HYPOXIA (7) Liver metastases Assessment/Plan: -present Code(s): C78.7 - SECONDARY MALIG NEOPLASM OF LIVER AND INTRAHEPATIC BILE DUCT case d/w Dr Coats PGY-3 and plan formulated
--- NOTE | 2018-03-08 13:46 | PN ---
GI Progress Note Subjective: GI NOte: Weekend events noted,. NG reinserted. Had 600cc output over the past 18 hours. Denies abdominal pain or vomiting. Had colostomy output yesterday but none today. Has leg pain as main complaint. - Objective Vital Signs: Vital Signs Temperature 97.3 F L 03/08/18 05:00 Pulse Rate 92 H 03/08/18 09:00 Respiratory Rate 18 03/08/18 09:00 Blood Pressure 119/60 03/08/18 09:00 O2 Sat by Pulse Oximetry (%) 98 03/08/18 09:00 Laboratory Tests 03/05/18 03/08/18 03/08/18 05:30 05:30 05:30 WBC 7.3 Hct 27.4 L Potassium 3.4 L BUN 32 H Creatinine 0.8 Albumin 2.1 L Constitutional: No Distress (sedated by morphine) ...Auscultate: Yes: Hypoactive Bowel Sounds ...Palpate: Yes: Soft, Other (nontender) Labs: CBC, BMP 03/08/18 05:30 03/08/18 05:30 INR, PTT INR 1.16 (0.83-1.09) H 03/03/18 22:24 Problem List - Problems (1) SBO (small bowel obstruction) Assessment/Plan: As per Arcadio's wishes his management will be confined to conservative measures. Continue NG suctioning and IV fluids. Will repeat FUA in AM. Hoping to attempt clamping tomorrow. Code(s): K56.609 - UNSP INTESTNL OBST, UNSP TO PARTIAL VERSUS COMPLETE OBST (2) Atrial fibrillation Code(s): I48.91 - UNSPECIFIED ATRIAL FIBRILLATION Qualifiers: Atrial fibrillation type: chronic Qualified Code(s): I48.2 - Chronic atrial fibrillation (3) Colon cancer Code(s): C18.9 - MALIGNANT NEOPLASM OF COLON, UNSPECIFIED (4) Colon polyp Code(s): K63.5 - POLYP OF COLON (5) Colostomy hernia Code(s): K94.09 - OTHER COMPLICATIONS OF COLOSTOMY (6) Diverticulosis Code(s): K57.90 - DVRTCLOS OF INTEST, PART UNSP, W/O PERF OR ABSCESS W/O BLEED
[2018-03-08] MEDS: D5-1/2NS+40 MEQ KCL - 40 MEQ/1,000 ML INFUS.BAG IV SCH (14:58)
--- NOTE | 2018-03-08 15:58 | PN ---
Progress Note (short form) - Note Progress Note: complains of leg pain still with NGT Vital Signs Period Temp Pulse Resp BP Sys/Leep Pulse Ox Last 24 Hr 97.3 F-98.1 F 92-112 18-20 98-119/50-64 98-100 cor-rrr lungs decreased bs at bases abd +liver edge, +mass ext no edema CBC, BMP 03/08/18 05:30 03/08/18 05:30 Microbiology 03/06/18 03:30 Urine - Urine Clean Catch Urine Culture - Final Enterococcus Faecalis 03/05/18 13:15 Blood - Peripheral Venous Blood Culture - Preliminary NO GROWTH OBTAINED AFTER 72 HOURS, INCUBATION TO CONTINUE FOR 2 DAYS. 03/05/18 13:15 Blood - Peripheral Venous Blood Culture - Preliminary NO GROWTH OBTAINED AFTER 72 HOURS, INCUBATION TO CONTINUE FOR 2 DAYS. a/p SBO possible pneumonia day #4 levaquin/flagyl- finish 7 days continued leg pain- consider duplex of his legs liver mass d/w hospitalist service Problem List - Problems (1) Fever Code(s): R50.9 - FEVER, UNSPECIFIED (2) SBO (small bowel obstruction) Code(s): K56.609 - UNSP INTESTNL OBST, UNSP TO PARTIAL VERSUS COMPLETE OBST (3) Liver metastases Code(s): C78.7 - SECONDARY MALIG NEOPLASM OF LIVER AND INTRAHEPATIC BILE DUCT
--- NOTE | 2018-03-08 23:51 | EKG ---
Test Reason : Blood Pressure : / mmHG Vent. Rate : 124 BPM Atrial Rate : 110 BPM P-R Int : 000 ms QRS Dur : 110 ms QT Int : 304 ms P-R-T Axes : 000 -40 -01 degrees QTc Int : 436 ms ATRIAL FIBRILLATION WITH RAPID VENTRICULAR RESPONSE WITH PREMATURE VENTRICULAR OR ABERRANTLY CONDUCTED COMPLEXES LEFT AXIS DEVIATION LOW VOLTAGE QRS RIGHT BUNDLE BRANCH BLOCK ABNORMAL ECG WHEN COMPARED WITH ECG OF 03-MAR-2018 23:56, NO SIGNIFICANT CHANGE WAS FOUND Confirmed by AMBER FLORES MD ([id number]) on 03/08/2018 11:50:51 PM Referred By: Confirmed By:AMBER FLORES MD
[2018-03-09] MEDS: METOPROLOL TARTRATE 5 MG/5 ML VIAL IVPUSH SCH ×7 (03:54→22:07)
[2018-03-09 07:40] LABS: BASO % 0.9 % (0-2.0); EOS % 0.3 % (0-4.5); HEMATOCRIT 26.9 % (35.4-49); HEMOGLOBIN 7.9 GM/dL (11.7-16.9); LYMPH % 8.5 % (8-40); MCH 31.4 pg (25.7-33.7); MCHC 29.4 g/dl (32.0-35.9); MEAN CELL VOLUME 106.9 fl (80-96); MEAN PLT VOLUME 9.2 fl (7.5-11.1); MONO % 7.6 % (3.8-10.2); NEUT % 82.7 % (42.8-82.8); PLATELET COUNT 128 K/MM3 (134-434); RBC 2.52 M/mm3 (4.00-5.60); RDW 17.1 % (11.9-15.9); WHITE BLOOD COUNT 6.8 K/mm3 (4.0-10.0)
[2018-03-09] MEDS: ALBUTEROL SO4 2.5/IPRATROPIUM 0.5 INH SOL 3 ML VIAL.NEB. NEB SCH ×4 (08:15→20:22)
[2018-03-09 08:16] LABS: ANION GAP 6 MMOL/L (8-16); BLOOD UREA NITROGEN 22 mg/dL (7-18); CALCIUM 8.6 mg/dL (8.5-10.1); CHLORIDE 106 mmol/L (98-107); CO2 33 mmol/L (21-32); CREATININE 0.7 mg/dL (0.55-1.3); GLUCOSE,RANDOM 105 mg/dL (74-106); POTASSIUM 3.7 mmol/L (3.5-5.1); SODIUM 145 mmol/L (136-145)
[2018-03-09] MEDS: ACETAMINOPHEN 1000 MG/100 ML VIAL (NON FORMULARY) IVPB PRN (09:33)
[2018-03-09 10:08] LABS: PHOSPHOROUS 1.2 mg/dL (2.5-4.9)
[2018-03-09] MEDS ORDERED: PT OWN MED DRAWER 7, Y5N ONE (11:01)
[2018-03-09] MEDS: PANTOPRAZOLE SODIUM 40 MG VIAL IVPUSH SCH (11:13)
[2018-03-09] MEDS: DIGOXIN 0.5 MG/2 ML AMPUL IVPUSH SCH (11:13)
[2018-03-09] MEDS: MORPHINE SULFATE 2 MG/ML VIAL IVPUSH PRN ×4 (11:17→22:08)
[2018-03-09] MEDS: METHYL SALICYLATE/MENTHOL OINT 30 GM TUBE TP SCH (11:31)
[2018-03-09] MEDS ORDERED: SODIUM PHOSPHATE - 0 MM in SODIUM CHLORIDE 250 ML IVPB ONE (11:44)
--- NOTE | 2018-03-09 12:31 | PN ---
Progress Note (short form) - Note Progress Note: Chief Complaint: sob History of Present Illness: no sob, palps, dizzy, lightheadness. complains of bilateral leg pain, wants to go home no cigs Current Medications Albuterol/Ipratropium (Duoneb -) 1 amp NEB RQID [facility] Last Admin: 03/09/18 11:55 Dose: 1 amp Digoxin (Lanoxin Injection -) 0.125 mg IVPUSH DAILY [facility] Last Admin: 03/09/18 11:13 Dose: 0.125 mg Metronidazole (Flagyl 500mg Premixed Ivpb -) 500 mg in 100 mls @ 100 mls/hr IVPB Q8H-IV [facility]EL[facility]E Last Admin: 03/09/18 11:13 Dose: 100 mls/hr Levofloxacin (Levaquin 250 Mg Premixed Ivpb -) 250 mg in 50 mls @ 50 mls/hr IVPB DAILY [facility]; Protocol Last Admin: 03/09/18 09:10 Dose: 50 mls/hr Dextrose/Sodium Chloride (D5-1/2ns+40 Meq Kcl -) 40 meq in 1,000 mls @ 75 mls/ hr IV ASDIR [facility] Last Admin: 03/08/18 14:58 Dose: Not Given Sodium Phosphate / Sodium (Chloride) 250 mls @ 62.5 mls/hr IVPB ONCE ONE Stop: 03/09/18 15:43 Methyl Salicylate (João-De La O -) 1 applic TP DAILY [facility] Last Admin: 03/09/18 11:31 Dose: 1 applic Metoprolol Tartrate (Lopressor Injection -) 5 mg IVPUSH Q4H-IV [facility]LEE Last Admin: 03/09/18 11:38 Dose: Not Given Metoprolol Tartrate (Lopressor Injection -) 5 mg IVPUSH Q1H PRN PRN Reason: TACHYCARDIA Morphine Sulfate (Morphine Sulfate) 2 mg IVPUSH Q3H PRN PRN Reason: PAIN LEVEL 6-10 Last Admin: 03/09/18 11:17 Dose: 2 mg Ondansetron HCl (Zofran Injection) 4 mg IVPUSH Q6H PRN PRN Reason: NAUSEA Pantoprazole Sodium (Protonix Iv) 40 mg IVPUSH DAILY [facility] Last Admin: 03/09/18 11:13 Dose: 40 mg - Objective Vital Signs: Vital Signs Period Temp Pulse Resp BP Sys/Lepe Pulse Ox Last 24 Hr 97.6 F-98.4 F 86-109 20-26 95-115/52-79 98-99 Constitutional: Yes: No Distress, Calm Eyes: No: Sclera Icterus HENT: No: Nasal Congestion Cardiovascular: Yes: Pulse Irregular, JVD, S1, S2, Other (PMI non diplaced). No : Gallop, Murmur Respiratory: Yes: CTA Bilaterally, Diminished (bases). No: Accessory Muscle Use Gastrointestinal: Yes: Normal Bowel Sounds, Soft. No: Tenderness Musculoskeletal: Yes: Other (No kyphosis) Extremities: No: Cold Edema: No Integumentary: No: Jaundice Neurological: Yes: Alert, Oriented (x3) Psychiatric: No: Agitated Assessment/Plan ECG 03/03 (21:52): SVT. RBBB/LPFB. nonsp ST-Ts (RBBB/LPFB not new vs prior 2012) ECG #2 and 3: afib, no signif change otherwise CXR: vs 01/27/18, bibasilar changes partially resolved. residual fluid (+/- atx/ infiltrate) L base (images reviewed: no vascular redistribution pattern appreciated) CXR repeat 03/07: incr effusions Echo 02/04 (): nl LV/EF. nl RV. mod LAE. mild . mild-mod MR. tele: AF, HRs 90s-110s PSVT, PAF: -known h/o AVNRT (s/p ablation), PAT (med managed--was on Multaq then (2010), brief PAFs -pt previously declined AC or further monitoring/cardio f/u -rapid HRs here with soft BPs. -no amio given mult liver lesions (suspected met.s) with abnormal LFTs ( including decreased synthetic function). ditto for multaq. -HRs thus far improved and reasonable on digoxin and low dose metoprolol. low BPs tolerating. dig level stable. -AC not a consideration regardless of rhythm substrate given pt's longstanding preferences and currently very morbid state with baseline anemia and hi bleed risk -LVEF preserved, no signif structural heart dz -given pt refusal of transfer to tertiary care center for definitive tx of his condition, and refusing w/u and tx of suspected metastatic cancer, with debilitated condition and evidence of impaired liver synthetic fxn on labs, seems prudent to have palliative care involved and clarify goals of care with pt sob, pleural effusions, ? acute HFpEF: -bilat effusions present 02/04, resolving on repeat here -JVD noted on exam here, s/p IVF administration. -lasix previously held for KATH, renal fxn now normalized. -CXR 03/07 with signif increased effusions, ? mild pulm edema--? 3rd spacing from hypoalb state -03/08 lasix 40 iv x1 today--if renal fxn stable in am, and no hypotension today - 03/09 renal function stable, however low BPs, no dyspnea, hold lasix, reevaluate in AM KATH: -? etiology initially. -intravasc depleted (poor PO intake, low albumin/3rd spacing?) -now improved. monitor trend liver met.s, ? primary; hi LFTs, SBO: -per GI CAD: -no s/sx of ischemia -cont home med regimen when/if able to take po -observe HTN: -bp low here
[2018-03-09] MEDS ORDERED: POTASSIUM PHOSPHATE 16 MM in SODIUM CHLORIDE 250 ML IVPB ONE (12:57)
[2018-03-09 13:17] LABS: ANISOCYTOSIS 1+; MACROCYTOSIS 1+; OVALOCYTE 1+; PLATELET ESTIMATE DECREASED
[2018-03-09] MEDS: D5-1/2NS+40 MEQ KCL - 40 MEQ/1,000 ML INFUS.BAG IV SCH (14:17)
--- NOTE | 2018-03-09 16:01 | PN ---
Physical Exam: SUBJECTIVE: Patient seen and examined at bedside. No overnight events. No new complaints. NO BM to date. Denies CP,MILLS,SOB, palpitations, nausea or vomiting. OBJECTIVE: Vital Signs Period Temp Pulse Resp BP Sys/Lepe Pulse Ox Last 24 Hr 97.8 F-98.4 F 86-115 20-26 95-115/54-79 98-99 GENERAL: AAOx3, NAD HEENT: NG tube set to suction LUNGS: CTAB, no wheezes, no crackles, no accessory muscle use. HEART: RRR, S1, S2 without murmur, rub or gallop. ABDOMEN: Soft, nontender, nondistended, hypoactive bowel sounds, no guarding, colostomy EXTREMITIES: 2+ pulses, warm, well-perfused, no edema. NEUROLOGICAL: Cranial nerves II through XII grossly intact. Normal speech, gait not observed. PSYCH: Normal mood, normal affect. SKIN: Warm, dry, normal turgor, no rashes or lesions noted Laboratory Results - last 24 hr 03/09/18 03/09/18 06:28 06:28 WBC 6.8 RBC 2.52 L Hgb 7.9 L Hct 26.9 L MCV 106.9 H MCH 31.4 MCHC 29.4 L RDW 17.1 H Plt Count 128 L MPV 9.2 Absolute Neuts (auto) 5.6 Neutrophils % 82.7 Neutrophils % (Manual) 73.8 Band Neutrophils % 2.0 Lymphocytes % 8.5 Lymphocytes % (Manual) 10.1 Monocytes % 7.6 Monocytes % (Manual) 9 Eosinophils % 0.3 Eosinophils % (Manual) 0.0 Basophils % 0.9 D Basophils % (Manual) 0.0 Myelocytes % (Man) 2 Promyelocytes % (Man) 0 Blast Cells % (Manual) 0 Nucleated RBC % 0 Metamyelocytes 1 Hypochromia 1+ Platelet Estimate Decreased Polychromasia 1+ Poikilocytosis 1+ Anisocytosis 1+ Microcytosis 0 Macrocytosis 1+ Ovalocytes 1+ Fragmented RBCs 1+ Sodium 145 Potassium 3.7 Chloride 106 Carbon Dioxide 33 H Anion Gap 6 L BUN 22 H Creatinine 0.7 Creat Clearance w eGFR > 60 Random Glucose 105 Calcium 8.6 Phosphorus 1.2 L Digoxin 1.04 Active Medications Generic Name Dose Route Start Last Admin Trade Name Freq PRN Reason Stop Dose Admin Albuterol/Ipratropium 1 amp 03/04/18 22:45 03/09/18 11:55 Duoneb - NEB 1 amp RQID KELLEE Administration Digoxin 0.125 mg 03/06/18 10:00 03/09/18 11:13 Lanoxin Injection - IVPUSH 0.125 mg DAILY KELLEE Administration Metronidazole 500 mg in 100 mls @ 100 mls/hr 03/05/18 18:00 03/09/18 11:13 Flagyl 500mg Premixed Ivpb - IVPB 100 mls/hr Q8H-IV KELLEE Administration Levofloxacin 250 mg in 50 mls @ 50 mls/hr 03/06/18 10:00 03/09/18 09:10 Levaquin 250 Mg Premixed Ivpb - IVPB 50 mls/hr DAILY KELLEE Administration Protocol Dextrose/Sodium Chloride 40 meq in 1,000 mls @ 75 mls/hr 03/07/18 11:45 03/09 14:17 D5-1/2ns+40 Meq Kcl - IV 75 mls/hr ASDIR KELLEE Administration Potassium Phosphate 16 mm/ 255.3333 mls @ 63.83 mls/hr 03/09/18 12:57 Sodium Chloride IVPB 03/09/18 16:57 ONCE ONE 16 MM/4 HR Methyl Salicylate 1 applic 03/08/18 10:00 03/09/18 11:31 João-De La O - TP 1 applic DAILY KELLEE Administration Metoprolol Tartrate 5 mg 03/05/18 18:00 03/09/18 14:18 Lopressor Injection - IVPUSH 5 mg Q4H-IV KELLEE Administration Metoprolol Tartrate 5 mg 03/05/18 16:50 Lopressor Injection - IVPUSH Q1H PRN TACHYCARDIA Morphine Sulfate 2 mg 03/08/18 12:52 03/09/18 14:15 Morphine Sulfate IVPUSH 2 mg Q3H PRN Administration PAIN LEVEL 6-10 Ondansetron HCl 4 mg 03/04/18 10:18 Zofran Injection IVPUSH Q6H PRN NAUSEA Pantoprazole Sodium 40 mg 03/06/18 10:45 03/09/18 11:13 Protonix Iv IVPUSH 40 mg DAILY KEL[facility]E Administration ASSESSMENT/PLAN: 87 year old male who comes in with loss of appetite, constipation, and vomiting. He says that he was doing well until approximately 2-3 days prior to admission found to have sbo and [facility]. Problem List - Problems (1) SBO (small bowel obstruction) Assessment/Plan: patient does not want surgery * patient is NPO * NGT to Low intermittent wall suction. * Appreciated GI consult. * Plan for D/C to [facility] tomorrow at 12pm (2) Atrial fibrillation Assessment/Plan: Will continue digoxin and metoprolol for rate control * Not on AC at this time/ (3) COPD (chronic obstructive pulmonary disease) Assessment/Plan: not in acute exacerbation. * continue supplemental o2 prn. * maintain spo2 >90% * (4) Liver lesion Assessment/Plan: may represent mets from colon ca * patient wants conservative management. (5) KATH (acute kidney injury) Assessment/Plan: -resolved (6) PSVT (paroxysmal supraventricular tachycardia) Visit type - Emergency Visit Emergency Visit: Yes ED Registration Date: 03/04/18 Care time: The patient presented to the Emergency Department on the above date and was hospitalized for further evaluation of their emergent condition. - New Patient This patient is new to me today: No - Critical Care Critical Care patient: No
--- NOTE | 2018-03-09 17:48 | PN ---
Teaching Attending Note Name of Resident: Abdelrahman Coats ATTENDING PHYSICIAN STATEMENT I saw and evaluated the patient. I reviewed the resident's note and discussed the case with the resident. I agree with the resident's findings and plan as documented. SUBJECTIVE: Mr Ernandez denies cp, sob, n/v. OBJECTIVE: Gen: nad CV: irreg irreg, rate controlled w/o m/r/g Pulm: ctab w/o w/r/r Abd: hypoactive bowel sounds, no stool in colostomy bag Ext: no c/c/e ASSESSMENT (1) SBO (small bowel obstruction) Code(s): K56.609 - UNSP INTESTNL OBST, UNSP TO PARTIAL VERSUS COMPLETE OBST (2) KATH (acute kidney injury) Code(s): N17.9 - ACUTE KIDNEY FAILURE, UNSPECIFIED (3) AAA (abdominal aortic aneurysm) Code(s): I71.4 - ABDOMINAL AORTIC ANEURYSM, WITHOUT RUPTURE Qualifiers: Presence of rupture: without rupture Qualified Code(s): I71.4 - Abdominal aortic aneurysm, without rupture (4) Atrial fibrillation Code(s): I48.91 - UNSPECIFIED ATRIAL FIBRILLATION Qualifiers: Atrial fibrillation type: chronic Qualified Code(s): I48.2 - Chronic atrial fibrillation (5) COPD (chronic obstructive pulmonary disease) Code(s): J44.9 - CHRONIC OBSTRUCTIVE PULMONARY DISEASE, UNSPECIFIED (6) Chronic respiratory failure with hypoxia Code(s): J96.11 - CHRONIC RESPIRATORY FAILURE WITH HYPOXIA (7) Liver metastases Code(s): C78.7 - SECONDARY MALIG NEOPLASM OF LIVER AND INTRAHEPATIC BILE DUCT Plan -case d/w patient and family -continue npo -continue ngt to liws -continue IVF -continue current management -plan for discharge to [facility] tomorrow at noon Problem List - Problems (1) SBO (small bowel obstruction) Code(s): K56.609 - UNSP INTESTNL OBST, UNSP TO PARTIAL VERSUS COMPLETE OBST (2) KATH (acute kidney injury) Code(s): N17.9 - ACUTE KIDNEY FAILURE, UNSPECIFIED (3) AAA (abdominal aortic aneurysm) Code(s): I71.4 - ABDOMINAL AORTIC ANEURYSM, WITHOUT RUPTURE Qualifiers: Presence of rupture: without rupture Qualified Code(s): I71.4 - Abdominal aortic aneurysm, without rupture (4) Atrial fibrillation Code(s): I48.91 - UNSPECIFIED ATRIAL FIBRILLATION Qualifiers: Atrial fibrillation type: chronic Qualified Code(s): I48.2 - Chronic atrial fibrillation (5) COPD (chronic obstructive pulmonary disease) Code(s): J44.9 - CHRONIC OBSTRUCTIVE PULMONARY DISEASE, UNSPECIFIED Qualifiers: COPD type: unspecified COPD Qualified Code(s): J44.9 - Chronic obstructive pulmonary disease, unspecified (6) Chronic respiratory failure with hypoxia Code(s): J96.11 - CHRONIC RESPIRATORY FAILURE WITH HYPOXIA (7) Liver metastases Code(s): C78.7 - SECONDARY MALIG NEOPLASM OF LIVER AND INTRAHEPATIC BILE DUCT
--- NOTE | 2018-03-09 22:45 | PN ---
GI Progress Note Subjective: GI NOte: Abdomen is distended with palpable bowel loops. No colostomy output today. No abdominal pain but still has leg pain - Objective Vital Signs: Vital Signs Temperature 97.8 F 03/09/18 20:28 Pulse Rate 108 H 03/09/18 22:07 Respiratory Rate 20 03/09/18 20:28 Blood Pressure 126/74 03/09/18 22:07 O2 Sat by Pulse Oximetry (%) 99 03/09/18 20:28 Laboratory Tests 03/09/18 03/09/18 06:28 06:28 WBC 6.8 Hgb 7.9 L BUN 22 H Constitutional: Calm Gastrointestinal Inspection: Yes: Distention ...Auscultate: Yes: Hypoactive Bowel Sounds ...Palpate: Yes: Soft, Other (nontender) Labs: CBC, BMP 03/09/18 06:28 03/09/18 06:28 INR, PTT INR 1.16 (0.83-1.09) H 03/03/18 22:24 Assessment/Plan Persistent SBO due to ostomy hernia and refusing surgery and transfer to tertiary care center Continue NG suctioning Agree with plans to transfer to [facility] Problem List - Problems (1) SBO (small bowel obstruction) Code(s): K56.609 - UNSP INTESTNL OBST, UNSP TO PARTIAL VERSUS COMPLETE OBST (2) Atrial fibrillation Code(s): I48.91 - UNSPECIFIED ATRIAL FIBRILLATION Qualifiers: Atrial fibrillation type: chronic Qualified Code(s): I48.2 - Chronic atrial fibrillation (3) Colon cancer Code(s): C18.9 - MALIGNANT NEOPLASM OF COLON, UNSPECIFIED (4) Colon polyp Code(s): K63.5 - POLYP OF COLON (5) Colostomy hernia Code(s): K94.09 - OTHER COMPLICATIONS OF COLOSTOMY (6) Diverticulosis Code(s): K57.90 - DVRTCLOS OF INTEST, PART UNSP, W/O PERF OR ABSCESS W/O BLEED
[2018-03-10] MEDS: METOPROLOL TARTRATE 5 MG/5 ML VIAL IVPUSH SCH ×3 (01:22→11:40)
[2018-03-10] MEDS: MORPHINE SULFATE 2 MG/ML VIAL IVPUSH PRN ×3 (01:23→12:07)
[2018-03-10] MEDS ORDERED: ALBUTEROL SO4 2.5/IPRATROPIUM 0.5 INH SOL 3 ML VIAL.NEB. NEB ONE (06:18)
[2018-03-10 06:31] VITALS: TEMP 97.8
[2018-03-10] MEDS: ALBUTEROL SO4 2.5/IPRATROPIUM 0.5 INH SOL 3 ML VIAL.NEB. NEB SCH (07:50)
[2018-03-10 08:34] LABS: PHOSPHOROUS 2.1 mg/dL (2.5-4.9)
[2018-03-10] MEDS: METHYL SALICYLATE/MENTHOL OINT 30 GM TUBE TP SCH (09:10)
[2018-03-10] MEDS: PANTOPRAZOLE SODIUM 40 MG VIAL IVPUSH SCH (09:11)
[2018-03-10] MEDS: DIGOXIN 0.5 MG/2 ML AMPUL IVPUSH SCH (09:11)
[2018-03-10 11:40] VITALS: BP 92/54; PULSE 105
--- NOTE | 2018-03-10 12:10 | PN ---
Progress Note (short form) - Note Progress Note: Chief Complaint: sob History of Present Illness: no sob, palps, dizzy, lightheadness[facility] Current Medications Digoxin (Lanoxin Injection -) 0.125 mg IVPUSH DAILY [facility] Last Admin: 03/10/18 09:11 Dose: 0.125 mg Metronidazole (Flagyl 500mg Premixed Ivpb -) 500 mg in 100 mls @ 100 mls/hr IVPB Q8H-IV [facility] Last Admin: 03/10/18 09:10 Dose: 100 mls/hr Levofloxacin (Levaquin 250 Mg Premixed Ivpb -) 250 mg in 50 mls @ 50 mls/hr IVPB DAILY [facility]; Protocol Last Admin: 03/10/18 09:10 Dose: 50 mls/hr Dextrose/Sodium Chloride (D5-1/2ns+40 Meq Kcl -) 40 meq in 1,000 mls @ 75 mls/ hr IV ASDIR [facility] Last Admin: 03/09/18 14:17 Dose: 75 mls/hr Methyl Salicylate (João-De La O -) 1 applic TP DAILY [facility] Last Admin: 03/10/18 09:10 Dose: 1 applic Metoprolol Tartrate (Lopressor Injection -) 5 mg IVPUSH Q4H-IV [facility] Last Admin: 03/10/18 11:40 Dose: Not Given Metoprolol Tartrate (Lopressor Injection -) 5 mg IVPUSH Q1H PRN PRN Reason: TACHYCARDIA Morphine Sulfate (Morphine Sulfate) 2 mg IVPUSH Q3H PRN PRN Reason: PAIN LEVEL 6-10 Last Admin: 03/10/18 04:48 Dose: 2 mg Ondansetron HCl (Zofran Injection) 4 mg IVPUSH Q6H PRN PRN Reason: NAUSEA Pantoprazole Sodium (Protonix Iv) 40 mg IVPUSH DAILY [facility] Last Admin: 03/10/18 09:11 Dose: 40 mg - Objective Vital Signs: Vital Signs Period Temp Pulse Resp BP Sys/Lepe Pulse Ox Last 24 Hr 97.8 F-98.0 F 102-128 17-24 92-133/48-80 97-99 Constitutional: Yes: No Distress, Calm Eyes: No: Sclera Icterus HENT: No: Nasal Congestion Cardiovascular: Yes: Pulse Irregular, JVD, S1, S2, Other (PMI non diplaced). No : Gallop, Murmur Respiratory: Yes: CTA Bilaterally, Diminished (bases). No: Accessory Muscle Use Gastrointestinal: Yes: Normal Bowel Sounds, Soft. No: Tenderness Musculoskeletal: Yes: Other (No kyphosis) Extremities: No: Cold Edema: No Integumentary: No: Jaundice Neurological: Yes: Alert, Oriented (x3) Psychiatric: No: Agitated Assessment/Plan ECG 03/03 (21:52): SVT. RBBB/LPFB. nonsp ST-Ts (RBBB/LPFB not new vs prior 2012) ECG #2 and 3: afib, no signif change otherwise CXR: vs 01/27/18, bibasilar changes partially resolved. residual fluid (+/- atx/ infiltrate) L base (images reviewed: no vascular redistribution pattern appreciated) CXR repeat 03/07: incr effusions Echo 02/04 (): nl LV/EF. nl RV. mod LAE. mild . mild-mod MR. tele: AF, HRs 90s-110s, PVCs PSVT, PAF: -known h/o AVNRT (s/p ablation), PAT (med managed--was on Multaq then (2010), brief PAFs -pt previously declined AC or further monitoring/cardio f/u -rapid HRs here with soft BPs. -no amio given mult liver lesions (suspected met.s) with abnormal LFTs ( including decreased synthetic function). ditto for multaq. -HRs thus far improved and reasonable on digoxin and low dose metoprolol. low BPs tolerating. dig level stable. -AC not a consideration regardless of rhythm substrate given pt's longstanding preferences and currently very morbid state with baseline anemia and hi bleed risk -LVEF preserved, no signif structural heart dz -given pt refusal of transfer to tertiary care center for definitive tx of his condition, and refusing w/u and tx of suspected metastatic cancer, with debilitated condition and evidence of impaired liver synthetic fxn on labs, seems prudent to have palliative care involved and clarify goals of care with pt - plan for transsfer to [facility] today sob, pleural effusions, ? acute HFpEF: -bilat effusions present 02/04, resolving on repeat here -JVD noted on exam here, s/p IVF administration. -lasix previously held for KATH, renal fxn now normalized. -CXR 03/07 with signif increased effusions, ? mild pulm edema--? 3rd spacing from hypoalb state -03/08 lasix 40 iv x1 today--if renal fxn stable in am, and no hypotension today - 03/09- renal function stable, low BPs no dyspnea, hold lasix KATH: -? etiology initially. -intravasc depleted (poor PO intake, low albumin/3rd spacing?) -now improved. monitor trend liver met.s, ? primary; hi LFTs, SBO: -per GI - plan for transfer to [facility] today for further management CAD: -no s/sx of ischemia -cont home med regimen when/if able to take po -observe HTN: -bp low here
--- NOTE | 2018-03-10 15:41 | PN ---
Progress Note, Physician - Objective Vital Signs: Vital Signs Temperature 97.8 F 03/10/18 08:03 Pulse Rate 105 H 03/10/18 11:40 Respiratory Rate 17 03/10/18 08:16 Blood Pressure 92/54 L 03/10/18 11:40 O2 Sat by Pulse Oximetry (%) 97 03/10/18 08:16 Constitutional: Yes: Cachectic Gastrointestinal: Yes: Other (Colostomy bag inplace.) Labs: CBC, BMP 03/09/18 06:28 03/09/18 06:28 INR, PTT INR 1.16 (0.83-1.09) H 03/03/18 22:24 Problem List - Problems (1) Abdominal hernia Code(s): K46.9 - UNSPECIFIED ABDOMINAL HERNIA WITHOUT OBSTRUCTION OR GANGRENE (2) Anemia Code(s): D64.9 - ANEMIA, UNSPECIFIED (3) Anorexia Code(s): R63.0 - ANOREXIA (4) Atrial fibrillation Code(s): I48.91 - UNSPECIFIED ATRIAL FIBRILLATION Qualifiers: Atrial fibrillation type: chronic Qualified Code(s): I48.2 - Chronic atrial fibrillation (5) COPD (chronic obstructive pulmonary disease) Code(s): J44.9 - CHRONIC OBSTRUCTIVE PULMONARY DISEASE, UNSPECIFIED Qualifiers: COPD type: unspecified COPD Qualified Code(s): J44.9 - Chronic obstructive pulmonary disease, unspecified (6) Colon cancer Code(s): C18.9 - MALIGNANT NEOPLASM OF COLON, UNSPECIFIED (7) Colostomy hernia Code(s): K94.09 - OTHER COMPLICATIONS OF COLOSTOMY (8) Liver metastases Code(s): C78.7 - SECONDARY MALIG NEOPLASM OF LIVER AND INTRAHEPATIC BILE DUCT (9) PSVT (paroxysmal supraventricular tachycardia) Code(s): I47.1 - SUPRAVENTRICULAR TACHYCARDIA (10) Weight loss Code(s): R63.4 - ABNORMAL WEIGHT LOSS Impression/Plan Impression/Plan: The patient was seen and examined at bedside. Awaiting placement to [facility] inpatient hospice with comfort care. Discharge med rec was done with the resident. Visit type - Emergency Visit Emergency Visit: Yes ED Registration Date: 03/04/18 Care time: The patient presented to the Emergency Department on the above date and was hospitalized for further evaluation of their emergent condition. - New Patient This patient is new to me today: Yes Date on this admission: 03/10/18 - Critical Care Critical Care patient: No
--- NOTE | 2018-03-10 16:25 | DS ---
Physical Exam: SUBJECTIVE: Patient seen and examined OBJECTIVE: Vital Signs Period Temp Pulse Resp BP Sys/Lepe Pulse Ox Last 24 Hr 97.8 F-98.0 F 102-128 17-20 92-133/48-80 97-99 PHYSICAL EXAM GENERAL: The patient is awake, alert, and fully oriented, in no acute distress. HEAD: Normal with no signs of trauma. EYES: PERRL, extraocular movements intact, sclera anicteric, conjunctiva clear. ENT: Ears normal, nares patent, oropharynx clear without exudates, moist mucous membranes. NECK: Trachea midline, full range of motion, supple. LUNGS: Breath sounds equal, clear to auscultation bilaterally, no wheezes, no crackles, no accessory muscle use. HEART: Regular rate and rhythm, S1, S2 without murmur, rub or gallop. ABDOMEN: Soft, nontender, nondistended, normoactive bowel sounds, no guarding, no rebound, no hepatosplenomegaly, no masses. EXTREMITIES: 2+ pulses, warm, well-perfused, no edema. NEUROLOGICAL: Cranial nerves II through XII grossly intact. Normal speech, gait not observed. PSYCH: Normal mood, normal affect. SKIN: Warm, dry, normal turgor, no rashes or lesions noted. LABS Laboratory Results - last 24 hr 03/10/18 06:23 Phosphorus 2.1 L Digoxin 1.52 HOSPITAL COURSE: Date of Admission:03/04/18 Date of Discharge: 03/10/18 Discharge Summary Reason For Visit: ACUTE KIDNEY INJURY, ATRIAL FIBRILLATION, Condition: Fair - Instructions Diet, Activity, Other Instructions: You have been seen and treated for an small bowel obstruction. You will continue to have suction tube until you are able to have a bowel movement. Nothing by mouth for now. Referrals: Jean Carlos Goodwin MD [Staff Physician] - Disposition: DISCHARGE TO HOSPICE-HOME - Home Medications Comprehensive Discharge Medication List: Ambulatory Orders Albuterol Sulfate [Proair Hfa] 8.5 gm IH PRN 01/22/18 Acetaminophen [Tylenol .Regular Strength -] 650 mg PO Q4H PRN tablet 02/01/18 Albuterol 2.5/Ipratropium 0.5 [Duoneb -] 1 amp NEB RQID amp 02/01/18 Tiotropium Lillian [Spiriva Respimat] 2 puff IH DAILY inhaler 02/01/18 Problem List - Problems (1) SBO (small bowel obstruction) (2) Atrial fibrillation (3) COPD (chronic obstructive pulmonary disease) (4) Liver lesion (5) KATH (acute kidney injury) (6) PSVT (paroxysmal supraventricular tachycardia) This patient is new to me today: No Emergency Visit: Yes ED Registration Date: 03/04/18 Care time: The patient presented to the Emergency Department on the above date and was hospitalized for further evaluation of their emergent condition. Critical Care patient: No
== END 2018-03-10 13:16 | disposition hospice, inpatient (51) | DRG 393 ==
LOC: JER 19:36 → JERBED 03-04 08:13 → J4S 03-04 18:50 → J4W 03-05 00:52
PROVIDERS: ADMIT Internal Medicine; ATTEND Internal Medicine
PROC: 3E0F7GC Introduction of Other Therapeutic Substance into Respiratory Tract, Via Natural or Artificial Opening (ICD-10-PCS; principal; 2018-03-03)
DX: K94.09 Other complications of colostomy (principal); I50.33 Acute on chronic diastolic (congestive) heart failure; K46.0 Unspecified abdominal hernia with obstruction, without gangrene; K43.3 Parastomal hernia with obstruction, without gangrene; N17.9 Acute kidney failure, unspecified; C78.7 Secondary malignant neoplasm of liver and intrahepatic bile duct; I47.1 Supraventricular tachycardia; I45.2 Bifascicular block; J98.11 Atelectasis; R64 Cachexia; I48.0 Paroxysmal atrial fibrillation; Z68.25 Body mass index [BMI] 25.0-25.9, adult; R16.2 Hepatomegaly with splenomegaly, not elsewhere classified; J44.9 Chronic obstructive pulmonary disease, unspecified; E78.5 Hyperlipidemia, unspecified; B96.89 Other specified bacterial agents as the cause of diseases classified elsewhere; Y83.8 Other surgical procedures as the cause of abnormal reaction of the patient, or of later complication, without mention of misadventure at the time of the procedure; Z85.038 Personal history of other malignant neoplasm of large intestine; Z90.49 Acquired absence of other specified parts of digestive tract; K43.2 Incisional hernia without obstruction or gangrene; K57.30 Diverticulosis of large intestine without perforation or abscess without bleeding; Z96.641 Presence of right artificial hip joint; K80.20 Calculus of gallbladder without cholecystitis without obstruction; Z99.81 Dependence on supplemental oxygen; I25.10 Atherosclerotic heart disease of native coronary artery without angina pectoris; Z95.5 Presence of coronary angioplasty implant and graft; Z66 Do not resuscitate; K59.00 Constipation, unspecified; Z85.828 Personal history of other malignant neoplasm of skin
CPT/HCPCS: 36415; 71045-TC-FY; 74019-TC-FY; 74176-TC; 80048; 80053; 80162; 81003; 81015; 82550; 82570; 83605; 83735; 84100; 84300; 84484; 85025; 85610; 85730; 86850; 86900; 86901; 87040; 87086; 87186; 93005; 93010; 93970-TC; 94640; 99284-25; J0131; J0282; J7030